=== PATIENT | female | born 1980 | race Caucasian/White ===

== ENCOUNTER 2021-10-26 13:48 | Outpatient (CLI) | payer OTHER, SELFPAY ==
--- NOTE | 2021-10-26 14:09 | ECG_ITS ---
Measurements Intervals [place] Rate: 61 P: 40 NC: 141 QRS: 9 QRSD: 98 T: 30 QT: 430 QTc: 434 Interpretive Statements SINUS RHYTHM DELAYED PRECORDIAL R/S TRANSITION BORDERLINE ECG NO PREVIOUS ECG AVAILABLE FOR COMPARISON Electronically Signed On 10-26-2021 14:40:29 CDT by Maximo Moss D.O.
== END 2021-10-26 13:49 | disposition home or self-care (01) ==
LOC: ANHSURGERY 13:59
PROVIDERS: PCP Emergency Medicine; Visit Provider Obstetrics & Gynecology
DX: N92.0 Excessive and frequent menstruation with regular cycle (principal); Z01.818 Encounter for other preprocedural examination; I10 Essential (primary) hypertension
CPT/HCPCS: 36415; 86850; 86900; 86901; 93005

== ENCOUNTER 2021-10-31 01:15 | Day surgery (SDC) | payer OTHER, SELFPAY ==
[2021-10-19 15:34] VITALS: BMI 39.6
--- NOTE | 2021-10-19 15:39 | SUR.PREOP ---
Report to the Outpatient Waiting Room, entrance under the green pavilion located off [facility], at time _0600 on date _10/31/21 . OR Time: 07 . - You and your visitor will be asked to self-screen and do not enter if you have any COVID symptoms. - Only one visitor and NO children visitors are allowed at this time. - The patient visitor is requested to leave or wait in car when not with patient due to restrictions. - A mask is required within the hospital. Patients may have clear liquids (water, carbonated beverages, clear teas, apple juice) until 3 hours prior to surgery with a maximum of 20 ounces. - No food from midnight until time of surgery - Infants may have breast milk until 4 hours before surgery, infant formula 6 hours prior to surgery. - Children will be allowed to drink immediately following surgery. If applicable, please bring a bottle or sippy cup to assist with drinking. Juice, water, soda, and popsicles are readily available. For infants on formula, please bring formula the day of surgery. Pacifiers are allowed. Take the following medications with a SIP of water the morning of surgery: _zoloft Medications to discontinue per physician ___vitamin d Date to take last dose__10/28/21 Please no make-up, nail spanish, hairspray, perfume, deodorant, or body powder the day of surgery. No jewelry (including any body piercings) or valuables the day of surgery, leave them at home. Please take a shower or bath the night before, or the morning of, surgery with an antibacterial soap. Wear comfortable, loose fitting clothing. Children are encouraged to wear pajamas. - Jewelry must be removed prior to entering the operating room. Rings and piercings that are not removed may be cut off. - The hospital will not accept responsibility for valuables. - Please leave all valuables, including medications, at home the day of surgery. If you are going home after surgery, a licensed box truck driver must drive you home. - NO public transportation without another adult. - We recommend that an adult stay with you for 24 hours following discharge. - We also recommend that you do not drive, make important decision, drink alcoholic beverages, or take any drugs that were not prescribed by your health care provider for at least 24 hours after your discharge time. For Pediatric surgeries, we recommend two adults accompany the child home (only one inside the building at this time). Follow any additional instructions given to you from your surgeon. If you or anyone in your household have experienced Covid symptoms in the past week, please notify your surgeon or the nurse liaison at the phone number below for possible testing. Telephone instructions given to _neptali butt_and asked if any additional questions and then verbalized understanding. Patient advised to call surgeon office or pre surgery nurse liaison [phone] if any additional questions.
[2021-10-31] VITALS (12 sets, daily range): BP systolic 107–166; BP diastolic 57–92; PULSE 44–86; RESP 10–19; TEMP 36.2–37.2; O2SAT 98–100
[2021-10-31] MEDS: ACETAMINOPHEN 500 MG TABLET 1000 MG PO (06:07)
--- NOTE | 2021-10-31 06:40 | P.PNAN_ITS ---
Anes - Initial Pre Proc Eval Procedure: Operation Date: 10/31/21 07:30 Proposed Procedures p Total Laparoscopic Hysterectomy with Bilateral Salpingectomy - Vandana Sam MD Date/Time: 10/31/21 06:40 Surgeon: Vandana Sam MD Pre Op Diagnosis: Menorrhagia, Dysmenorhea,Pelvic Pain Patient Data Age: 40 Gender: F Height: 1.68 m Weight: 111.36 kg Allergies Allergy/AdvReac Type Severity Reaction Status Date / Time tramadol Allergy Mild Rash Verified 10/31/21 06:03 Home Medications Medication Instructions Recorded Confirmed Type albuterol sulfate 90 mcg/actuation 90 mcg inhalation PRN 10/19/21 10/19/21 History aerosol inhaler cholecalciferol (vitamin D3) 50 50 mcg PO DAILY 10/19/21 10/31/21 History mcg (2,000 unit) capsule (Vitamin D3) losartan 25 mg tablet 25 mg PO DAILY 10/19/21 10/31/21 History omeprazole 20 mg tablet,delayed 20 mg PO DAILY 10/19/21 10/31/21 History release sertraline 50 mg tablet 50 mg PO DAILY 10/19/21 10/31/21 History simvastatin 20 mg tablet 20 mg PO DAILY 10/19/21 10/31/21 History Patient hx anesthesia problems: none Family hx anesthesia problems: none Results Review: All pre-operative results and documents have been reviewed as part of the pre- operative evaluation. [facility] Past Medical History Medical History (Updated 10/31/21 @ 06:40 by Papo Almaguer MD) Anxiety Depression HTN (hypertension) Obesity Surgical History Surgical History (Updated 10/31/21 @ 06:40 by Papo Almaguer MD) History of tubal ligation Social History Social History Smoking status: Former smoker Tobacco type: e-cigarettes/vaping Smoking end date: 02/24/21 Additional smoking assessment comments: 7 years smoking,currently vaping Living arrangements: with family Spiritual care concerns: No Anes - Eval Final PreProcedure Day of Procedure 10/31/21 06:40 Patient weight: obese Heart: regular rate and rhythm Lungs: clear to auscultation Airway: Mallampati scale class II Neurological: alert and oriented Last oral intake: >/= 8 hours ASA classification: III Emergent: no Anesthetic plan: proceed Anesthesia type and monitoring: general ETT and standard monitoring Results Review: All pre-operative results and documents have been reviewed as part of the pre- operative evaluation. Informed Consent: The patient's anesthetic plan and its attendant risks and benefits were discussed with the patient/family/POA. Questions were solicited and answers provided to the satisfaction of the patient/family/POA.
[2021-10-31] MEDS: LACTATED RINGERS 1,000 ML 30 ML IV CONT ×2 (06:53→09:29)
[2021-10-31] MEDS: KETOROLAC 15 MG/ML VIAL (*BKC) IV PUSH (06:53)
--- NOTE | 2021-10-31 07:16 | WPDHPUPDATE1 ---
History and Physical Update Update Date/Time: 10/31/21 07:16 History and Physical has been reviewed, including an updated exam of the patient. There are NO changes in the patient's condition. Risks, benefits, and alternatives have been discussed and questions answered. Patient agrees to proceed with procedure.
[2021-10-31] MEDS: ceFAZolin 2 GM/D5W 50 ML 2 GM/50 ML BAG IVPB (07:26)
[2021-10-31] MEDS: ceFAZolin SODIUM 1 GM VIAL IRRIGATION (08:22)
[2021-10-31] MEDS: ONDANSETRON INJ 4 MG/2 ML VIAL IV PUSH (09:44)
[2021-10-31] MEDS: SCOPOLAMINE 1.5 MG PATCH TRANSDERM (09:44)
--- NOTE | 2021-10-31 09:44 | W.PM.PROC2 ---
Procedure Note - Detailed Date of Procedure 10/31/21 Pre-op Diagnosis Menorrhagia, Dysmenorhea,Pelvic Pain Post-op Diagnosis Same Procedure Performed Total laparoscopic hysterectomy and bilateral salpingo-oophorectomy. Surgeon Vandana Sam MD Anesthesia General Indications Pelvic pain, menorrhagia Findings Mildly enlarged vascular uterus, endometrial implant, high in the left pelvic sidewall lateral to the infundibulopelvic ligament. Normal-appearing numerous. Description of Procedure This patient was taken to the operating room. She was prepped and draped in the dorsal lithotomy position after induction of general anesthesia. The uterine manipulator and Kaylynn cup were placed. This was done with a speculum and tenaculum. The speculum was placed. The cervix was grasped with a tenaculum. The stay sutures were placed at 3 and 9:00 a.m.. The stay sutures of 0 Vicryl were brought through the appropriately sized Kaylynn cup. The tip of the SHANNAN manipulator was placed in the intrauterine cavity. The cup was slid into place around the cervix and into the fornices. It was locked into place. The sutures were then wrapped around the handle and tied under tension. A 5 mm skin incision was made in the left upper quadrant the abdomen. A 5 mm trocar was inserted into the intrauterine cavity under direct visualization of the scope. Pneumoperitoneum was achieved. A left lower quadrant 11 mm incision was made with scalpel. An 11 mm trocar was inserted into the anterior abdominal cavity under direct visualization the scope. A 5 mm infraumbilical incision was made with a scalpel and a 5 mm trocar was inserted the intra-abdominal cavity under direct visualization of the scope. Bilateral ureteral lysis was performed. This was done from the pelvic brim down to the uterine artery. This was done with careful dissection using sharp and blunt dissection. The infundibulopelvic ligaments were isolated after identification of the ureters bilaterally. These infundibulopelvic ligaments were cauterized and transected with LigaSure cautery. The para ovarian tissue was cauterized and transected with LigaSure cautery bilaterally. Moving around the ovary into the broad ligament the tissue was cauterized transected with LigaSure cautery. The round ligaments were cauterized transected with LigaSure cautery this was all done in a bilateral fashion. In a stepwise fashion along the lateral aspects of the uterus the round ligament and broad ligaments were cauterized transected down to the level of the uterine arteries. A bladder flap was created in the bladder was moved distally to the end of the cervix and over the Kaylynn cup. The bilateral uterine arteries were cauterized and transected. Colpotomy was then performed. In a circumferential fashion the vagina was transected using unipolar cautery. The incision was made down on the Kaylynn cup. The uterus, cervix, fallopian tubes and ovaries were taken out through the vagina. A pneumo occluder was placed in the vagina. The vaginal cuff was closed with a 0 V lock suture in a running fashion. The pelvis was irrigated with copious amounts antibiotic irrigation. The ureters were again examined and found to be intact and flowing freely under the uterine arteries into the bladder. The bladder was intact. It was examined directly. The vagina was irrigated with Betadine solution after removal of the Pneumo occluder.The skin incisions were closed with 4 O monocril and covered with dermabond The patient was taken to recovery room. She was stable condition. Sponge lap and needle counts were correct x2. Estimated Blood Loss -150.0 Urine Output -50.0 Drains Yes Packing No Pathology Yes Complications No immediate complications Condition Stable Disposition Floor
[2021-10-31] MEDS: fentaNYL CITRATE INJ (*CRX) 100 MCG/2 ML VIAL 25 MCG IV PUSH ×6 (09:55→10:35)
[2021-10-31] MEDS: KETOROLAC 30 MG/ML VIAL (*BKC) IV PUSH (11:20)
[2021-10-31] MEDS: DEXTROSE 5%/0.45% SOD CHL 1,000 ML 125 ML IV CONT (11:29)
[2021-10-31] MEDS: HYDROcodone/acetaminophen (*CRX) 10-325 MG TABLET 1 TAB PO ×3 (12:58→23:06)
[2021-10-31] MEDS: SIMETHICONE 80 MG TAB.CHEW (12:59)
[2021-10-31] MEDS: PANTOPRAZOLE 40 MG TABLET PO (16:01)
[2021-10-31] MEDS: ESTRADIOL 7 DAY 0.1 MG PATCH TRANSDERM (16:03)
[2021-10-31] MEDS: HYDROcodone/acetaminophen (*CRX) 5-325 MG TABLET 1 TAB PO (19:33)
[2021-10-31] MEDS: SIMETHICONE 80 MG TAB.CHEW PO (23:06)
[2021-11-01] MEDS: HYDROcodone/acetaminophen (*CRX) 10-325 MG TABLET 1 TAB PO ×2 (04:12→07:18)
[2021-11-01] MEDS: SIMETHICONE 80 MG TAB.CHEW PO ×2 (04:12→07:18)
[2021-11-01 04:15] VITALS: BP 132/71; PULSE 58; RESP 18; TEMP 36.8; O2SAT 100
[2021-11-01] MEDS: IBUPROFEN 600 MG TABLET PO (05:36)
[2021-11-01 08:05] VITALS: BP 118/65; PULSE 56; RESP 16; TEMP 36.8; O2SAT 100
--- NOTE | 2021-11-01 08:33 | PM.OBPNVD ---
OB - PN: Subj Subjective Date/time seen: 11/01/21 08:33 OB - PN A/P Time Spent With Patient Time: Total time spent is greater than 50% in coordination of care (as documented) at patient's floor/unit and/or counseling patient: Exam Const: General: healthy appearing, comfortable and no acute distress Resp: Auscultation: clear to auscultation bilaterally, no rales, no rhonchi and no wheezes Cardio: Rate: regular rate Heart sounds: no click, no murmurs and no rubs GI: Inspection: non-distended Auscultation: normal bowel sounds Extrem: General: normal to inspection, no pedal edema and no calf tenderness
[2021-11-01] MEDS: SERTRALINE HCL 50 MG TABLET PO (09:07)
[2021-11-01] MEDS: LOSARTAN POTASSIUM 25 MG TABLET PO (09:07)
[2021-11-01] MEDS: HYDROcodone/acetaminophen (*CRX) 5-325 MG TABLET 1 TAB PO (10:21)
--- NOTE | 2021-11-01 10:39 | WPDANESPN ---
Anes - Prog Note Post-Op Date/Time: 11/01/21 10:39 Cardiovascular status: normal Respiratory status: normal Airway patency: baseline Mental status: baseline Post-Op hydration status: normal Vital Signs: Last Vital Signs Temp 36.8 C 11/01/21 08:05 Pulse 56 L 11/01/21 08:05 Resp 16 11/01/21 08:05 BP 118/65 11/01/21 08:05 Pulse Ox 100 11/01/21 08:05 O2 Del Method Room Air 11/01/21 07:15 O2 Flow Rate 10 10/31/21 09:59 Pain Score (VAS): 2 Patient Feedback: Patient satisfied with anesthetic care.
== END 2021-11-01 10:25 | disposition home or self-care (01) ==
LOC: ANHSURGERY 07:04 → ANHOB2 11:02
PROVIDERS: PCP Emergency Medicine; Visit Provider Obstetrics & Gynecology
PROC: 0UT9FZZ Resection of Uterus, Via Natural or Artificial Opening With Percutaneous Endoscopic Assistance (ICD-10-PCS; CPT 58571; principal; 2021-10-31 07:30)
DX: N92.0 Excessive and frequent menstruation with regular cycle (principal); N94.6 Dysmenorrhea, unspecified; R10.2 Pelvic and perineal pain; N80.3 Endometriosis of pelvic peritoneum; N83.8 Other noninflammatory disorders of ovary, fallopian tube and broad ligament; I10 Essential (primary) hypertension; F41.9 Anxiety disorder, unspecified; F32.A Depression, unspecified; Z79.51 Long term (current) use of inhaled steroids; E66.01 Morbid (severe) obesity due to excess calories; Z68.41 Body mass index [BMI] 40.0-44.9, adult; F17.290 Nicotine dependence, other tobacco product, uncomplicated
CPT/HCPCS: 58571; 58662; 36415; 86850; 86900; 86901; 88305; 88307; 93005; 99199; A9270; J0330; J0690; J1100; J1885; J2250; J2405; J2704; J2710; J3010; J7030; J7120

== ENCOUNTER 2023-04-30 08:31 | Emergency (ER) | payer OTHER, SELFPAY ==
[2023-04-30] VITALS (18 sets, daily range): BP systolic 108–152; BP diastolic 67–99; PULSE 56–74; RESP 12–22; TEMP 36.6; O2SAT 90–100
--- NOTE | ~2023-04-30 | XR_ITS ---
EXAMINATION: XR chest 2V DATE: 04/30/2023 09:06 INDICATION: Intermittent chest pain and pressure. TECHNIQUE: PA and lateral views of the chest were obtained. COMPARISON: None FINDINGS: The lungs are clear with no focal airspace opacities, pulmonary edema, pleural effusion or pneumothor ax. The cardiomediastinal silhouette is normal. Mild thoracic spondylosis. IMPRESSION: 1. No acute cardiopulmonary disease. Reviewed, dictated and finalized at location A. TRICAL SOLDERER
--- NOTE | ~2023-04-30 | US_ITS ---
EXAMINATION: US venous doppler [facility] DATE: 04/30/2023 11:17 INDICATION: Lower limb pain and swelling TECHNIQUE: Grayscale ultrasound images without and with compression and Doppler ultrasound images of the bilateral lower extremity veins were obtained. COMPARISON: None. FINDINGS: The visualized portions of right common femoral vein, profunda (deep) femoral vein, femoral vein, pop liteal vein, posterior tibial veins, peroneal veins, gastrocnemius vein and greater saphenous vein ou tflow are patent. The visualized portions of left common femoral vein, profunda femoral vein, femoral vein, popliteal v ein, posterior tibial veins, peroneal veins, gastrocnemius vein and greater saphenous vein outflow ar e patent. IMPRESSION: 1. No deep venous thrombosis in either lower limb. Reviewed, dictated and finalized at location A. E ROOM WORKER
[2023-04-30 08:52] LABS: Basophils Percent Auto 0.5 % (0.2-1.2); Eosinophils Absolute Auto 0.2 K/mm3 (0-0.3); Hematocrit 42.8 % (37.0-47.0); Hemoglobin 13.3 g/dL (12.0-15.0); Immature Granulocyte Absolute 0.02 K/mm3 (0.00-0.031); Immature Granulocyte Percent A 0.4 % (0-0.5); Lymphocytes Percent Auto 36.4 % (18.3-44.2); Mean Corpuscular HGB Conc 31.1 g/dl (32-36); Mean Corpuscular Hemoglobin 26.2 pg (26-34); Mean Corpuscular Volume 84.3 fl (80-100); Mean Platelet Volume 9.5 fl (7.4-10.4); Monocytes Absolute Auto 0.3 K/mm3 (0.1-0.6); Monocytes Percent Auto 5.5 % (2.6-8.5); Neutrophils Absolute Auto 2.9 K/mm3 (1.3-6.7); Neutrophils Percent Auto 53.2 % (45.5-73.1); Platelet Count Result 298 k/mm3 (150-375); Red Blood Count 5.08 M/mm3 (4.2-5.4); Red Cell Distribution Width 13.9 % (11.5-14.5); White Blood Count 5.5 K/mm3 (4.5-10.0)
[2023-04-30 09:03] LABS: INR 0.9; Prothrombin Time 12.6 Seconds (11.1-14.7)
[2023-04-30 09:04] LABS: Partial Thromboplastin Time 25.3 SECONDS (22.3-36.8)
[2023-04-30 09:17] LABS: Alanine Aminotransferase 29 U/L (6-35); Albumin Level 3.9 g/dL (3.5-5.1); Alkaline Phosphatase 63 U/L (38-126); Anion Gap 7 mmol/L (8-16); Aspartate Amino Transferase 22 U/L (14-36); Bilirubin,Total 0.3 mg/dL (0.2-1.3); Blood Urea Nitrogen 17 mg/dL (7-17); Calcium 8.9 mg/dL (8.4-10.2); Carbon Dioxide 26 mmol/L (22-30); Chloride 106 mmol/L (98-107); Estimated CRCL calculation 120 ml/min; Estimated Glomerular Filt Rate > 60; Glucose 132 mg/dL (65-110); Lipase 78 U/L (23-300); Sodium 139 mmol/L (137-145)
[2023-04-30 09:23] LABS: Troponin I < 0.012 ng/mL (0.000-0.034)
[2023-04-30] MEDS: ASPIRIN 81 MG CHEWABLE TABLET 324 MG PO (09:23)
[2023-04-30 09:24] LABS: Potassium 3.6 mmol/L (3.4-5.0)
[2023-04-30 09:31] LABS: D Dimer < 0.27 ug/mL (<0.48)
--- NOTE | 2023-04-30 09:37 | ED.CHESTPAIN ---
HPI - Chest Pain General Chief Complaint: Chest Pain Stated Complaint: chest pain, feet swelling Time Seen by Provider: 04/30/23 09:09 Source: patient Mode of arrival: ambulatory Limitations: no limitations History of Present Illness HPI narrative: This is a 42-year-old female that presents to the emergency department for lower extremity edema. Worsening over the last month. Reports since yesterday she has had some intermittent chest discomfort. She describes this as butterflies in her chest. Reports some associated shortness of breath. Reports some cough and congestion. Denies fevers. Related Data Home Medications Medication Instructions Recorded Confirmed albuterol sulfate 90 mcg/actuation 90 mcg inhalation PRN 10/19/21 10/19/21 aerosol inhaler cholecalciferol (vitamin D3) 50 50 mcg PO DAILY 10/19/21 10/31/21 mcg (2,000 unit) capsule (Vitamin D3) losartan 25 mg tablet 25 mg PO DAILY 10/19/21 10/31/21 sertraline 50 mg tablet 50 mg PO DAILY 10/19/21 10/31/21 simvastatin 20 mg tablet 20 mg PO DAILY 10/19/21 10/31/21 alprazolam 1 mg tablet (Xanax) 1 mg PO BID PRN Anxiety 04/30/23 Allergies Allergy/AdvReac Type Severity Reaction Status Date / Time tramadol Allergy Mild Rash Verified 04/30/23 08:45 Review of Systems Review of Systems: CONSTITUTIONAL: Denies fever, ENT: Reports congestion CARDIOVASCULAR: Reports chest pain, and edema. RESPIRATORY: Reports cough and dyspnea. All systems reviewed & are unremarkable except as noted in HPI and below PMFSH Past Medical History Medical History (Updated 04/30/23 @ 12:15 by Nyla Lee PA-C) Anxiety Depression HTN (hypertension) Obesity Surgical History Surgical History (Updated 10/31/21 @ 06:40 by Papo Almaguer MD) History of tubal ligation Social History Social History Smoking status: Former smoker Tobacco type: e-cigarettes/vaping Smoking end date: 02/24/21 Additional smoking assessment comments: 7 years smoking,currently vaping Living arrangements: with family Spiritual care concerns: No Exam Narrative: GENERAL: Well-appearing, well-nourished, and in no acute distress. HEAD: Normocephalic, atraumatic. EYES: EOMI. ENT: Nares clear, no rhinorrhea or epistaxis. Mucous membranes moist. Oropharynx without tonsillar hypertrophy exudate or other lesions. NECK: Supple. No adenopathy or masses. No JVD CHEST: Clear to auscultation. No respiratory distress. No wheezes rales or rhonchi HEART: Regular rate and rhythm. No murmur heard. Normal peripheral pulses. EXTREMITIES: Normal range of motion. 1+ pitting edema to the bilateral lower extremities SKIN: Warm, dry, no rash. NEURO: No focal deficits. Alert and oriented x3. PSYCH: Normal mood and affect Course Course Emergency Course: Patient updated on her workup and agrees with plan of care Vital Signs Vital signs: Vital Signs Temperature 97.8 F 04/30/23 08:38 Pulse Rate 62 04/30/23 08:38 Respiratory Rate 16 04/30/23 08:38 Blood Pressure 152/71 H 04/30/23 08:38 Pulse Oximetry 100 04/30/23 08:38 Oxygen Delivery Room Air 04/30/23 08:38 Temperature 97.8 F 04/30/23 08:38 Pulse Rate 58 L 04/30/23 11:31 Respiratory Rate 18 04/30/23 11:31 Blood Pressure 108/87 04/30/23 11:31 Pulse Oximetry 95 04/30/23 11:31 Oxygen Delivery Room Air 04/30/23 08:38 MDM - Chest Pain MDM Narrative Medical decision making narrative: Patient presents to the emergency department for worsening lower extremity edema. Also reporting a feeling of chest pain described as butterflies in her chest. She is afebrile and nontoxic appearing. Her vitals are stable. CBC metabolic panel without concerning finding. EKG without acute ST changes and her baseline and 3 hour troponin are negative. D-dimer is not elevated. BNP is not elevated. Chest x-ray without acute cardiopulmonary abnormality. Venous
[2023-04-30 10:04] LABS: NT Pro B Type Natriuretic Pept 60 pg/mL (19.9-100)
[2023-04-30 10:32] LABS: Influenza A QL RT-PCR Negative (Negative); Influenza B QL RT-PCR Negative (Negative); RSV RNA, RT-PCR Negative (Negative); SARS-CoV-2 RNA PCR Negative (Negative)
--- NOTE | 2023-04-30 11:30 | ECG_ITS ---
Measurements Intervals [place] Rate: 58 P: 19 GA: 157 QRS: 7 QRSD: 101 T: 47 QT: 435 QTc: 429 Interpretive Statements SINUS BRADYCARDIA NONSPECIFIC T-WAVE ABNORMALITY- ANTERIOR LEADS BASELINE ARTIFACT- I, III, AVR, AVL, AVF, V1-V2 BORDERLINE ECG NO PREVIOUS ECG AVAILABLE FOR COMPARISON Electronically Signed On 05-01-2023 13:12:40 TOWER LOADER OPERATOR by Maximo Moss D.O.
[2023-04-30 11:50] LABS: Troponin I < 0.012 ng/mL (0.000-0.034)
== END 2023-04-30 12:30 | disposition home or self-care (01) ==
PROVIDERS: Student in an Organized Health Care Education/Training Program; Emergency Provider Physician Assistant; PCP Emergency Medicine
DX: R07.9 Chest pain, unspecified (principal); R60.9 Edema, unspecified; Z20.822 Contact with and (suspected) exposure to COVID-19; F41.9 Anxiety disorder, unspecified; F32.A Depression, unspecified; I10 Essential (primary) hypertension
CPT/HCPCS: 36415; 71046; 80053; 83690; 83880; 84484; 85025; 85380; 85610; 85730; 87637; 93005; 93970; 99284; A9270

== ENCOUNTER 2023-12-03 10:10 | Emergency (ER) | payer OTHER, SELFPAY ==
--- NOTE | ~2023-12-03 | XR_ITS ---
Left Shoulder Technique: AP and scapular Y views were obtained. Clinical History: Pain Findings: No fracture or dislocation is seen. Osseous alignment is anatomic. The glenohumeral and acr omioclavicular joint spaces are preserved. Soft tissues are unremarkable. Impression: Unremarkable left shoulder radiographs. Reviewed, dictated and finalized at [facility]. Impression: Unremarkable left shoulder radiographs.
[2023-12-03 10:18] VITALS: BP 156/86; PULSE 70; RESP 16; TEMP 36.9; O2SAT 98
--- NOTE | 2023-12-03 13:28 | ED.GENADULT ---
HPI - General Adult General Chief complaint: Extremity Problem,Nontraumatic Stated complaint: L shoulder pain Time Seen by Provider: 12/03/23 12:44 History of Present Illness HPI narrative: Patient is a 42-year-old female who presents ER with pain to left shoulder. Ongoing over last 3 days but significantly worsened today. Has difficulty turning her arm internally to reach the midline of her back and also has pain along the medial aspect of the scapula when bending head down and lifting her arm. Reports she did catch 1 of her children who Was following the other day. Unsure if this causes injury but she had been sore since then. No numbness or tingling. No chest pain or difficulty breathing. Occasional for anti-inflammatories and home care. Related Data Home Medications Medication Instructions Recorded Confirmed albuterol sulfate 90 mcg/actuation 90 mcg inhalation PRN 10/19/21 10/19/21 aerosol inhaler cholecalciferol (vitamin D3) 50 50 mcg PO DAILY 10/19/21 10/31/21 mcg (2,000 unit) capsule (Vitamin D3) losartan 25 mg tablet 25 mg PO DAILY 10/19/21 10/31/21 sertraline 50 mg tablet 50 mg PO DAILY 10/19/21 10/31/21 simvastatin 20 mg tablet 20 mg PO DAILY 10/19/21 10/31/21 alprazolam 1 mg tablet (Xanax) 1 mg PO BID PRN Anxiety 04/30/23 Allergies Allergy/AdvReac Type Severity Reaction Status Date / Time tramadol Allergy Mild Rash Verified 12/03/23 10:11 Review of Systems Constitutional: Constitutional: Reports no additional constitutional complaints Cardiovascular: Cardiovascular: Reports no additional cardiovascular complaints Respiratory: Respiratory: Reports no additional respiratory complaints Musculoskeletal: Musculoskeletal: Reports back pain, Reports arthralgias, Denies joint swelling and Reports muscle cramps PMFSH Past Medical History Medical History (Updated 12/03/23 @ 13:33 by Hayden Hayward MD) Anxiety Depression HTN (hypertension) Obesity Surgical History Surgical History (Updated 10/31/21 @ 06:40 by Papo Almaguer MD) History of tubal ligation Social History Social History Smoking status: Former smoker Tobacco type: e-cigarettes/vaping Smoking end date: 02/24/21 Additional smoking assessment comments: 7 years smoking,currently vaping Living arrangements: with family Spiritual care concerns: No Exam Narrative: GENERAL: Well-appearing, well-nourished, and in no acute distress. HEAD: Normocephalic, atraumatic. ENT: Mucous membranes moist. CHEST: Clear to auscultation. No respiratory distress. No tenderness over the clavicle. HEART: Regular rate and rhythm. Normal peripheral pulses. Back: No midline tenderness at T/L-spine. Significant paraspinal muscle tenderness between the scapula and T-spine reproducing patient's pain. No trapezius tenderness. EXTREMITIES: Normal range of motion. No edema. Normal internal external rotation the shoulder with exception of reaching back to midline of the back which cannot be performed. Abduction At the shoulderpossible. NEURO: Alert and oriented x3. PSYCH: Normal mood and affect. Course Course Emergency Course: declined Toradol. Will give naproxen. Discharge with anti-inflammatories muscle relaxers. Discussed imaging results and muscle strain diagnosis. Vital Signs Vital signs: Vital Signs Temperature 98.5 F 12/03/23 10:18 Pulse Rate 70 12/03/23 10:18 Respiratory Rate 16 12/03/23 10:18 Blood Pressure 156/86 H 12/03/23 10:18 Pulse Oximetry 98 12/03/23 10:18 Oxygen Delivery Room Air 12/03/23 10:18 Temperature 98.5 F 12/03/23 10:18 Pulse Rate 70 12/03/23 10:18 Respiratory Rate 16 12/03/23 10:18 Blood Pressure 156/86 H 12/03/23 10:18 Pulse Oximetry 98 12/03/23 10:18 Oxygen Delivery Room Air 12/03/23 10:18 Medical Decision Making Vital Signs Vital Signs: Vital Signs Temperature 98.5 F 10/
[2023-12-03] MEDS: NAPROXEN 375 MG TABLET PO (13:36)
== END 2023-12-03 13:48 | disposition home or self-care (01) ==
LOC: ANHED 13:42
PROVIDERS: Emergency Provider Emergency Medicine; PCP Emergency Medicine
DX: S29.012A Strain of muscle and tendon of back wall of thorax, initial encounter (principal); I10 Essential (primary) hypertension; E66.9 Obesity, unspecified; Z68.42 Body mass index [BMI] 45.0-49.9, adult; F41.9 Anxiety disorder, unspecified; F32.A Depression, unspecified; F17.290 Nicotine dependence, other tobacco product, uncomplicated; Z79.899 Other long term (current) drug therapy; X58.XXXA Exposure to other specified factors, initial encounter
CPT/HCPCS: 73030; 99283; A9270

== ENCOUNTER 2024-03-13 21:58 | Emergency (ER) | payer OTHER, SELFPAY ==
--- NOTE | ~2024-03-13 | XR_ITS ---
EXAMINATION: XR chest 2V Exam Date/Time: 03/13/2024 22:32 BOTTLING ROOM WORKER HISTORY: SOB, COUGH X 1 DAY Comparison: 04/30/2023. RESULT: Lines, tubes, and devices: None. Lungs and pleura: Segmental right upper lobe airspace disease. Cardiomediastinal silhouette: Stable. Other: No acute osseous or upper abdominal finding. IMPRESSION: Segmental right upper lobe pneumonia. Reviewed, dictated and finalized at location K. LING ROOM WORKER
[2024-03-13 22:02] VITALS: BP 137/89; PULSE 77; RESP 22; TEMP 36.2; O2SAT 98
--- NOTE | 2024-03-13 22:15 | ECG_ITS ---
Test Date: 2024-03-13 22:19:29 Measurements Intervals [place] Rate: 69 P: 28 AL: 147 QRS: 12 QRSD: 123 T: 58 QT: 381 QTc: 408 Interpretive Statements SINUS RHYTHM POSSIBLE LATERAL MYOCARDIAL INFARCTION , PROBABLY OLD [30 ms Q WAVE IN I/aVL/V5/V6] No previous ECG available for comparison Electronically Signed On 03-14-2024 10:02:59 [employer] by Kofi Subramanian M.D.
[2024-03-13 22:31] LABS: Basophils Percent Auto 0.6 % (0.2-1.2); Eosinophils Absolute Auto 0.2 K/mm3 (0-0.3); Eosinophils Percent Auto 4.2 % (0-4.4); Hematocrit 41.4 % (37.0-47.0); Hemoglobin 12.9 g/dL (12.0-15.0); Immature Granulocyte Absolute 0.01 K/mm3 (0.00-0.031); Immature Granulocyte Percent A 0.2 % (0-0.5); Lymphocytes Absolute Auto 2.32 K/mm3 (0.9-3.2); Lymphocytes Percent Auto 42.6 % (18.3-44.2); Mean Corpuscular HGB Conc 31.2 g/dl (32-36); Mean Corpuscular Hemoglobin 25.4 pg (26-34); Mean Corpuscular Volume 81.7 fl (80-100); Mean Platelet Volume 9.5 fl (7.4-10.4); Monocytes Absolute Auto 0.5 K/mm3 (0.1-0.6); Monocytes Percent Auto 9.2 % (2.6-8.5); Neutrophils Absolute Auto 2.4 K/mm3 (1.3-6.7); Neutrophils Percent Auto 43.2 % (45.5-73.1); Platelet Count Result 294 k/mm3 (150-375); Red Blood Count 5.07 M/mm3 (4.2-5.4); Red Cell Distribution Width 14.8 % (11.5-14.5); White Blood Count 5.5 K/mm3 (4.5-10.0)
[2024-03-13 22:43] LABS: Alanine Aminotransferase 35 U/L (6-35); Albumin Level 3.7 g/dL (3.5-5.1); Alkaline Phosphatase 62 U/L (38-126); Anion Gap 7 mmol/L (4-12); Aspartate Amino Transferase 25 U/L (14-36); Bilirubin,Total 0.3 mg/dL (0.2-1.3); Blood Urea Nitrogen 15 mg/dL (7-17); Calcium 8.6 mg/dL (8.4-10.2); Carbon Dioxide 26 mmol/L (22-30); Chloride 108 mmol/L (98-107); Estimated CRCL calculation 107 ml/min; Estimated Glomerular Filt Rate > 60; Glucose 109 mg/dL (65-110); Potassium 3.9 mmol/L (3.4-5.0); Sodium 141 mmol/L (137-145)
[2024-03-13 23:09] LABS: Influenza A QL RT-PCR Negative (Negative); Influenza B QL RT-PCR Negative (Negative); RSV RNA, RT-PCR Negative (Negative); SARS-CoV-2 RNA PCR Negative (Negative)
[2024-03-13 23:46] VITALS: PULSE 75; O2SAT 100
[2024-03-13 23:47] VITALS: BP 133/96; PULSE 73; RESP 20; TEMP 36.8; O2SAT 100
[2024-03-13 23:48] VITALS: O2SAT 100
[2024-03-14] MEDS: guaiFENesin/DEXTROMETHORPHAN 10 ML UDC PO (00:03)
[2024-03-14] MEDS: KETOROLAC 15 MG/ML VIAL (*BKC) IV PUSH (00:03)
[2024-03-14] MEDS: dexAMETHasone SOD PHOS INJ 10 MG/ML 1 ML VIAL IV PUSH (00:04)
[2024-03-14] MEDS: IPRATROPIUM 0.5 MG/ALBUTEROL SULFATE 2.5 MG AMPUL.NEB 3 ML 12 ML INHALATION (00:09)
[2024-03-14 00:10] VITALS: PULSE 71; RESP 24
--- NOTE | 2024-03-14 00:46 | ED_ITS ---
HPI - General Adult General Chief complaint: Shortness of Breath/Dyspnea Stated complaint: SOB, cough Time Seen by Provider: 03/13/24 23:38 History of Present Illness HPI narrative: This is a 43-year-old female history of bronchitis presenting for URI symptoms. Starting yesterday she developed sinus pressure, ear fullness sore throat and chest tightness. Denies fevers chills chest pain abdominal pain nausea vomiting or diarrhea. He has a sick child at home with similar symptoms Related Data Home Medications ?Medication ?Instructions ?Recorded ?Confirmed ?Last Taken ?Type albuterol sulfate 90 mcg/actuation 90 mcg inhalation PRN 10/19/21 10/19/21 Unknown History aerosol inhaler cholecalciferol (vitamin D3) 50 50 mcg PO DAILY 10/19/21 10/31/21 Unknown History mcg (2,000 unit) capsule (Vitamin D3) losartan 25 mg tablet 25 mg PO DAILY 10/19/21 10/31/21 10/30/21 History sertraline 50 mg tablet 50 mg PO DAILY 10/19/21 10/31/21 10/30/21 History simvastatin 20 mg tablet 20 mg PO DAILY 10/19/21 10/31/21 10/29/21 History alprazolam 1 mg tablet (Xanax) 1 mg PO BID PRN Anxiety 04/30/23 Unknown History Allergies Allergy/AdvReac Type Severity Reaction Status Date / Time tramadol Allergy Mild Rash Verified 03/13/24 22:05 [facility] Past Medical History Medical History Anxiety Depression HTN (hypertension) Obesity Surgical History Surgical History History of tubal ligation Social History Social History Smoking status: Former smoker Tobacco type: e-cigarettes/vaping Smoking end date: 02/24/21 Additional smoking assessment comments: 7 years smoking,currently vaping Living arrangements: with family Spiritual care concerns: No Exam 2 Narrative: APPEARANCE: No apparent distress. Head: atraumatic. TM- Serous effusion bilaterally EYES: EOMI, NOSE: Atraumatic NECK: Trachea midline RESPIRATORY: No increased rate of breathing, scattered wheezes, no oxygen requirements CARDIOVASCULAR: RRR, no peripheral edema ABDOMINAL: Non-distended soft nontender MUSCULOSKELETAl: No obvious deformities NEURO: Alert. Moving 4/4 extremities SKIN:: Warm, dry. Normal color PSYCHIATRIC: Normal affect Course Vital Signs Vital signs: Vital Signs Temperature 97.2 F L 03/13/24 22:02 Pulse Rate 77 03/13/24 22:02 Respiratory Rate 22 H 03/13/24 22:02 Blood Pressure 137/89 03/13/24 22:02 Pulse Oximetry 98 03/13/24 22:02 Oxygen Delivery Room Air 03/13/24 22:02 Temperature 98.3 F 03/13/24 23:47 Pulse Rate 71 03/14/24 00:10 Respiratory Rate 24 H 03/14/24 00:10 Blood Pressure 133/96 H 03/13/24 23:47 Pulse Oximetry 100 03/13/24 23:48 Oxygen Delivery Room Air 03/13/24 23:48 Medical Decision Making MDM Narrative Medical decision making narrative: -Course: 43-year-old female presenting with URI symptoms. Viral swabs negative. Lab work within normal limits. Vital signs stable. Patient treated with breathing treatment for her wheezing and given dexamethasone. Patient will be discharged primary care follow-up -DDX includes but is not limited to: URI symptoms, bronchitis, pneumonia, COVID, flu -Interventions: Breathing treatment, dexamethasone, cough syrup, Toradol -Shared decision making / Disposition: Discharge -RX Flonase, Robitussin Vital Signs Vital Signs: Vital Signs Temperature 97.2 F L 03/13/24 22:02 Pulse Rate 77 03/13/24 22:02 Respiratory Rate 22 H 03/13/24 22:02 Blood Pressure 137/89 03/13/24 22:02 Pulse Oximetry 98 03/13/24 22:02 Oxygen Delivery Room Air 03/13/24 22:02 Temperature 98.3 F 03/13/24 23:47 Pulse Rate 71 03/14/24 00:10 Respiratory Rate 24 H 03/14/24 00:10 Blood Pressure 133/96 H 03/13/24 23:47 Pulse Oximetry 100 03/13/24 23:48 Oxygen Delivery Room Air 03/13/24 23:48 Lab Data 03/13/24 22:25 03/13/24 22:25 Labs: Lab Results 03/13/24 Range/Units 22:25 WBC 5.5 (4.5-10.0) K/mm3 RBC 5.07 (4.2-5.4) M/mm3 Hgb 12.9 (12.0-15.0) g/dL Hct 41.4 (37.0-47.0) % MCV 81.7 (80-100) fl MCH 25.4 L (26-34) pg MCHC 31.2 L (32-36) g/dl RDW 14.8 H (11.5-14.5) % Plt Count 294 (150-375) k/mm3 MPV 9.5 (7.4-10.4) fl Immature Gran % (Auto) 0.2 (0-0.5) % Neut % (Auto) 43.2 L (45.5-73.1) % Lymph % (Auto) 42.6 (18.3-44.2) % Dickinson % (Auto) 9.2 H (2.6-8.5) % Eos % (Auto) 4.2 (0-4.4) % Baso % (Auto) 0.6 (0.2-1.2) % Lymph # (Auto) 2.32 (0.9-3.2) K/mm3 Dickinson # (Auto) 0.5 (0.1-0.6) K/mm3 Eos # (Auto) 0.2 (0-0.3) K/mm3 Baso # (Auto) 0.0 (0.0-0.1) K/mm3 Abs Immat Gran (auto) 0.01 (0.00-0.031) K/mm3 Absolute Neuts (auto) 2.4 (1.3-6.7) K/mm3 Absolute Nucleated RBC 0.000 (0.0-0.012) K/mm3 Nucleated RBC % 0.0 (0.0-0.2) % Sodium 141 (137-145) mmol/L Potassium 3.9 (3.4-5.0) mmol/L Chloride 108 H (98-107) mmol/L Carbon Dioxide 26 (22-30) mmol/L Anion Gap 7 (4-12) mmol/L BUN 15 (7-17) mg/dL Creatinine 0.76 (0.7-1.0) mg/dL Estim Creat Clear Calc 107 ml/min Estimated GFR > 60 (59 - ) Glucose 109 (65-110) mg/dL Calcium 8.6 (8.4-10.2) mg/dL Total Bilirubin 0.3 (0.2-1.3) mg/dL AST 25 (14-36) U/L ALT 35 (6-35) U/L Alkaline Phosphatase 62 (38-126) U/L Total Protein 7.0 (6.3-8.2) g/dL Albumin 3.7 (3.5-5.1) g/dL Influenza A (RT-PCR) Negative (Negative) Influenza B (RT-PCR) Negative (Negative) RSV (RT-PCR) Negative (Negative) SARS-CoV-2 RNA (RT-PCR) Negative (Negative) Discharge Plan Discharge Clinical Impression: URI (upper respiratory infection), Bronchitis Patient Disposition: Home, Self-Care Condition: Stable Instructions: Antibiotic Form, Acute Bronchitis (ED) Additional Instructions: He was seen emergency department for cold symptoms. Please use the prescribed medicines for symptom control. Return to ED if you develop fevers, worsening shortness of breath or any new symptoms. Please use your inhaler every 4-6 hours as needed. Patient Language: Samoan Prescriptions: New Robitussin Cough-Chest Arnaldo DM 10-200 mg capsule 1 tab-cap PO ONCE PRN (Reason: cough) Qty: 14 0RF fluticasone propionate [Flonase Allergy Relief] 50 mcg/actuation spray,suspension 1 spray intranasal DAILY Qty: 16 0RF Rx Instructions: administer into each nostril albuterol sulfate [Ventolin HFA] 90 mcg/actuation HFA aerosol inhaler 1 inh inhalation QID Qty: 6.7 0RF No Action simvastatin 20 mg tablet 20 mg PO DAILY losartan 25 mg tablet 25 mg PO DAILY albuterol sulfate 90 mcg/actuation HFA aerosol inhaler 90 mcg inhalation PRN sertraline 50 mg tablet 50 mg PO DAILY cholecalciferol (vitamin D3) [Vitamin D3] 50 mcg (2,000 unit) Capsule 50 mcg PO DAILY alprazolam [Xanax] 1 mg Tablet 1 mg PO BID PRN (Reason: Anxiety) hydrochlorothiazide 12.5 mg capsule 12.5 mg PO DAILY 30 Days Qty: 30 0RF cyclobenzaprine 10 mg tablet 10 mg PO TID PRN (Reason: muscle spasm) Qty: 20 0RF naproxen 375 mg tablet 375 mg PO BID Qty: 14 0RF Follow-up/Referrals: Steven Crouch MD [Primary Care Provider] -
[2024-03-14 00:56] VITALS: O2SAT 100
--- OUTSIDE RECORDS SUMMARY | 2024-03-18 09:41 | XMS_ITS ---
Author Organization [facility] [place] [employer] [facility] Address [facility] [facility] [address] [place] [address] Care Team Providers Care Automobile Rental Agent Name Role Phone ArianaConner motaistin Unavailable [phone] Social History Sex Assigned At : Social History Observation Description Sex Assigned At Female Encounters Encounter Location Date Provider Diagnosis [facility] [place] [employer] [facility] [address] [facility] [address] [place] [address] 02/04/2024 Manisha Joyner Plan Of Treatment No Information Progress Notes * TOMMY FRYDOB: 2 (43 yo F)Acc No.[id number]:02/04/2024 Patient:?TOMMY FRY Provider:?Manisha Joyner :1980???Age:43 Y???Sex:Female D ate:02/04/2024 Address:[address] [place], [place] [id number] Subjective: * Chief Complaints: * ??? * Medical History:? * Surgical History:? * Hospitalization/Major Diagno stic Procedure:? * Medications:? Objective: * Vitals:? Assessment: Plan: * Treatment: * Procedure Codes:? * Billing Information: * Visit Code:? * Procedure Codes:? * HEALTH ASSISTANT Sign off status: Completed true * Provider:Bebe Joyner Date:? 024 Generated for Estuardo adorno/Kaity/eTелена on:?03/18/2024 09:41 AM HOME HEALTH ASSISTANT
--- OUTSIDE RECORDS SUMMARY | 2024-03-18 09:41 | XMS_ITS | CONTINUITY OF CARE DOCUMENT ---
Author Name alyssa shah Address Unknown Organization [facility] Address [address] [facility] [address] [place] [address] Phone [phone] Care Team Providers Care Global Recruiter Name Role Phone Maite CADET, Tanya Mcneil Unavailable MICK POLLACK MD Unavailable [phone] MICK POLLACK MD Unavailable [phone] PROBLEMS Condition Status Date Provider Notes Vitamin D deficiency active Deo Mcmahan IRON DEFICIENCY active Deo Alberto MD B12 deficiency active Deo Alberto MD Tobacco dependence, continuous active Dean Alberto MD Obesity active Deo Alberto MD Cermm-[id number] deficiency active Dean Alberto MD Hyperlipidemia;with high crp active Deo Alberto MD Exposure to SARS-associated coronavirus;neg igg and swb active Deo Alberto MD Screening active Deo Alberto MD Bradycardia;nml tsh active Deo Alberto MD Chest pain, atypical active Deo Mcmahan Leg edema, bilateral active Tanya liu MD Cardiology examination active Tanya renae MD ENCOUNTERS Date Type Provider Location Encounter Diag nosis - In-person encounter Office Visit Tanya Arora MD [facility] Cardiology examination - In-person encounter Office Visit Tanya Arora MD [facility] Leg edema, bilateral - In-person encounter Office Visit Deo Alberto MD [facility] Exposure to SARS-associated coronavirus;neg igg and swb - In-person encounter Office Visit Deo Alberto MD [facility] Tobacco dependence, continuousObesityAlp [id number] deficiencyHyperlipid emia;with high crpExposure to SARS-associated coronavirus;neg igg and swbScreeningBradycar jillian;nml tshChest pain, atypical VITAL SIGNS Date Observation Value Provider blood pressure, diastolic 84 mm[Hg] Li [facility] blood pressure, systolic 124 mm[Hg] Alison [facility] Body Mass Index (Ratio) 47.29 kg/m2 Rush Arora MD blood pressure, cuff size large [facility], [facility] 84 mm[Hg] [facility] systolic 124 mm[Hg] Tab [facility] pulse rate 92 /min Eugenia Bucyrus oxygen saturation, oximetry 97 % Eugenia Bucyrus weight E&M 293 [lb_av] Eugenia Bucyrus respiratory rate E&M 12 /min Eugenia Bucyrus height E&M 66 [in_i] [facility] Body Mass Index (Ratio) 46.64 kg/m2 Paul gee [place] blood pressure, cuff size large Ke rri Gruenenfeld blood pressure, diastolic 72 mm[Hg] Ke rri Gruenenfelder blood pressure, systolic 112 mm[Hg] Ker ri Gruenenfeldlevy oxygen saturation, oximetry 97 % Jennyfer Roger respiratory rate E&M 12 /min Jennyfer G ruenenfelder pulse rate 80 /min Jennyfer Gramiranehali lder weight E&M 289 [lb_av] Jennyfer Stoner [facility] height E&M 66 [in_i] Jennyfer Stoner [facility] Body Mass Index (Ratio) 38.73 kg/m2 Mac Alberto MD blood pressure, diastolic 87 mm[Hg] Cy nubia Aguayo blood pressure, systolic 137 mm[Hg] Leanna feli Aguayo blood pressure, cuff size regular Cy nubia Augayo pulse rate 72 /min Nancyfeli Iglesias l respiratory rate E&M 16 /min Nancy Aguayo oxygen saturation, oximetry 97 % Nancy Aguayo weight E&M 240 [lb_av] Nancy Jarekbel l height E&M 66 [in_i] Nancy Campbel l weight E&M 253 [lb_av] Janet [place] Body Mass Index (Ratio) 40.83 kg/m2 Mac Alberto MD blood pressure, resting No Tons hall Rivero respiratory rate E&M 16 /min Tonsha Rivero pulse rate 60 /min Tonsha Rivero oxygen saturation, oximetry 98 % Tonsha Rivero blood pressure, diastolic 83 mm[Hg] To nsha Rivero blood pressure, systolic 134 mm[Hg] Ton sha Rivero weight E&M 253 [lb_av] Tonsha Rivero height E&M 66 [in_i] Tonsha Rivero ALLERGIES Allergy Name Onset Date Reaction Criticality Status TRAMADOL HCL Low Criticality active RESULTS Date Observation Value Provider Reference Range Interpretation Location 3 c-reactive protein, quantitative, serum 4.88 mg/L [facility] 0.00-3.00 High 3 troponin I <0.01 ng/mL [facility] 0.00-0.04 3 ferritin, serum 37 ng/mL [facility] 15-150 2020/07/2 3 B-12, serum 351 pg/mL [facility] 232-1245 3 pro brain natriuretic peptide 109 pg/mL [facility] 0-130 3 iron saturation percent, serum 12 % [facility] 15-55 Low 3 iron, serum 40 ug/dL [facility] 27-159 3 iron binding capacity, unsaturated 299 ug/dL [facility] 164-773 1701/07/2 3 iron binding capacity, total 339 ug/dL [facility] 961-120 3647/07/2 3 free thyroxine index 2.2 [facility] 1.2-4.9 3 triiodothyronine resin uptake 27 % [facility] 24-39 3 thyroxine, serum, total 8.0 ug/dL [facility] 4.5-12.0 3 thyroid stimulating hormone, serum 2.180 u[IU]/mL [facility] 0.450-4.500 3 lipoprotein, beta, serum, point, quantitative, calculated 131 mg/dL [facility] 0-99 High 3 very low density lipoproteins 28 mg/dL [facility] 5-40 3 HDL cholesterol, serum 34 mg/dL [facility] >39 Low 3 triglyceride, serum, random 140 mg/dL [facility] 0-149 3 cholesterol, serum 193 mg/dL [facility] 100-199 HISTORY OF MEDICATION USE Medication Status Instructions Dates Provider Indications Com ments furosemide 40 mg tablet active TAKE 1 TABLET BY MOUTH EVERY DAY Tanya Arora MD Adipex-P 37.5 mg tablet active 1 tablet by mouth once a day Jennyfer Duran alprazolam 0.25 mg tablet active tablet by mouth Jennyfer Duran bupropion HCl 100 mg tablet active 1 tab by mouth daily, if not effective after 1 week may increase to 1 tab twice daily Jennyfer Duran RYBELSUS 7 MG ORAL TABLET completed one tab by mouth once daily when 3 mg run out in 30 days - Deo Alberto MD RYBELSUS 3 MG ORAL TABLET completed one tab by mouth once daily x30 days, then increase to 7mg daily - Deo Alberto MD Crestor 20 mg tablet active 1 tablet by mouth once a day Jennyfer Duran cholecalciferol (vitamin D3) 1,250 mcg (50,000 unit) capsule active 1 capsule by mouth once a week Jennyfer Duran ferrous sulfate 325 mg (65 mg iron) tablet active tablet by mouth once a day Jennyfer Duran cyanocobalamin (vitamin B-12) 1,000 mcg tablet active 1 tablet once a day Jennyfer Duran VITAMIN D3 1.25 MG (67026 UT) ORAL CAPSULE completed one capsule by mouth weekly - Nancy Aguayo VITAMIN B-12 1000 MCG ORAL TABLET completed One tablet daily - Nancy Aguayo FERROUS SULFATE 325 (65 FE) MG ORAL TABLET completed ONE PER DAY - Nancy Aguayo NALTREXONE HCL 50 MG ORAL TABLET completed 1/2 tab by mouth daily, if not effective after 1 week may increase to 1/2 tab twice daily - Nancy Aguayo ADIPEX-P 37.5 MG ORAL TABLET completed one tab by mouth daily - Nancy Aguayo albuterol sulfate 90 mcg/actuation HFA aerosol inhaler active Inhale 2 puff by mouth every six hours as needed Jennyfer Duran #9, 25 days supply, Prescribed by MICK POLLACK, Filled 06/23/2019 NAPROXEN SODIUM 550 MG ORAL TABLET completed TAKE 1 TABLET BY MOUTH TWICE DAILY REGULARLY - Nancy Aguayo #20, 10 days supply, Prescribed by FABIENNE YOON, Filled 07/12/2019 CYCLOBENZAPRINE HCL 10 MG ORAL TABLET completed TAKE 1 TABLET BY MOUTH AT BEDTIME - Nancy Aguayo #10, 10 days supply, Prescribed by FABIENNE YOON, Filled 07/12/2019 SULFAMETHOXAZOLE- TRIMETHOPRIM 800-160 MG ORAL TABLET completed TAKE 1 TABLET BY MOUTH EVERY 12 HOURS FOR 7 DAYS - Nancy Aguayo #14, 7 days supply, Prescribed by MICK POLLACK, Filled 08/18/2019 PRAVASTATIN SODIUM 20 MG ORAL TABLET completed TAKE 1 TABLET BY MOUTH ONCE DAILY - Nancy Aguayo #30, 30 days supply, Prescribed by MICK POLLACK, Filled 08/18/2019 CITALOPRAM HYDROBROMIDE 40 MG ORAL TABLET completed TAKE 1 TABLET BY MOUTH ONCE DAILY - Deo Alberto MD #30, 30 days supply, Prescribed by MICK OPLLACK, Filled 08/18/2019 OMEPRAZOLE 20 MG ORAL CAPSULE DELAYED RELEASE completed TAKE 1 CAPSULE BY MOUTH ONCE DAILY 30 MINUTES BEFORE A MEAL - Nancy Aguayo #30, 30 days supply, Prescribed by MICK POLLACK, Filled 09/03/2019 SOCIAL HISTORY Date Observation Value Provider smoking, date started 2008 Vignesh Arora MD smoking history, tot al pack/year 365 Tanya Arora MD smoking history, tot al pack/day 1 Tanya Arora MD cigarette use yes Tanya ross MD smoking status Current every day smoker Floyd Arora MD smoking, date started 2008 Vignesh Arora MD smoking history, tot al pack/year 365 Tanya Arora MD smoking history, tot al pack/day 1 Tanya Arora MD cigarette use yes Tanya ross MD smoking status Current every day smoker Floyd Arora MD social history E&M S moking History: P atient currently smokes every day. Deo Alberto MD social history reviewed E&M revi ewed - no changes required Deo Alberto MD smoking, date started 2008 Deb Aguayo smoking history, tot al pack/year 365 Nancy Aguayo smoking history, tot al pack/day 1 Nancy Aguayo cigarette use yes Nancy champagne smoking status Current every day smoker Satya Aguayo social history E&M S moking History: Amisha zaldivar currently smokes every day. Deo Alberto MD social history reviewed E&M revi ewed - no changes required Deo Alberto MD smoking, date started 2008 [facility] smoking history, tot al pack/year 365 [facility] smoking history, tot al pack/day 1 [facility] cigarette use yes [facility] smoking status Current every day smoker T [facility] FAMILY HISTORY Family Member Condition Father Family History of Hy pertension: Father Family History of Di abetes: Father Family History of CV A or Stroke: Mother Family History of Hy pertension: Mother Family History of Di abetes: Mother Family History of CV A or Stroke: INSURANCE PROVIDERS Payer name Policy type / Coverage type [place] [facility] ID [facility] [id number] Other [id number] ADVANCE DIRECTIVES Name Date DISCUSSED - NO DECISION MADE TREATMENT PLAN Date Name Performer Cardiology: T he following medications were removed from the medication list: Pravastatin Sodium 20 Mg Oral Tablet (Pravastatin sodium) ..... Take 1 tablet by mouth once daily & #13;Her updated medication list for this problem includes: Crestor 20 Mg Oral Tablet (Rosuvastatin calcium) ..... One tab. daily Tanya Arora MD Cardiology Tanya Arora MD Cardiology Tanya Arora MD Cardiology:Not dominant, just kn own carrier. Tanya Arora MD Cardiology:Venous do plers reviewed; bilateral reflux; wear compression stockings. Tanya Arora MD Cardiology:Will need to repeat e cho at some time. Tanya Arora MD Cardiology:Denies CP R outine stress normal in 2019 Tanya Arora MD Cardiology:Needs t and lifestyle changes c heck home sleep study Tanya Arora MD Cardiology:Recommend compression stockings C heck venous doppler w reflux study C urrently CEAP class IV W e have discussed treatment options for edema, need reflux study to further evaluate U se lasix 40mg once daily Tanya Arora MD Cardiology:take 5,00 0 international units once daily nature made or any generic version Tanya Arora MD :neg sklee pro rpr hep panel hiv and brain ct Deo Alberto MD Cardiology follow up : N EG PRO, RPR HEP PANEL HIV AND JENARO CT Deo Alberto MD Cardiology follow up : T he following medications were removed from the medication list: Pravastatin Sodium 20 Mg Oral Tablet (Pravastatin sodium) ..... Take 1 tablet by mouth once daily Her updated medication list for this problem includes: Crestor 20 Mg Oral Tablet (Rosuvastatin calcium) ..... One tab. daily Deo Alberto MD Cardiology follow up Deo ross MD Cardiology follow up :did not liek adipex and naltrexone Deo Alberto MD Cardiology follow up Deo ross MD Cardiology follow up Deo ross MD Cardiology follow up :neg stress and echo n eg trop echo and streasmeill Deo Alberto MD Cardiology follow up :min [address] Deo Alberto MD needs Fe infusion, f lagged precert 83:neg trop echo and streasmeill Deo Alberto MD needs Fe infusion, f lagged precert 83:NEG PRO, RPR HEP PANEL HIV AND JENARO CT Deo Alberto MD needs Fe infusion, flagged prece rt 8/3:NEG TROP Deo Alberto MD Cardiology Deo Alberto MD Cardiology Deo Alberto MD Cardiology Deo Alberto MD Cardiology:will rx,will think crisostomo rgerfy later Deo Alberto MD Cardiology Deo Alberto MD Cardiology Deo Alberto MD Cardiology Deo Alberto MD Cardiology:neg rpr hep panels an d hiv, neg brain ct Deo Alberto MD Cardiology:sx will cho Deo guerrero MD Date Name Auto-CPAP 6cm H2O -1 8cm H2O Sleep Study Home Venous Doppler Bilat eral LE - Reflux Sleep Study Home CT, Coronary Calcium Score DLCO - 78040 FRC - 92353 FVC - 66489 TROPONIN I D-DIMER, QUANTITATIV E PROBNP, N TERMINAL CT, Coronary Calcium Score Stress Routine Complete Echo Holter Monitor 24 Hr IRON AND TOTAL IRON BINDING CAPACITY FERRITIN VITAMIN B12 Vitamin D, 25-Hydrox y TSH, free T4, total T3 C-REACTIVE PROTEIN LIPID PANEL DLCO - 91760 FRC - 93507 FVC - 57056 HISTORY OF PROCEDURES Procedure Date Procedure Name Provider Procedure Notes S tatus Complex e/m visit add on Tanya Arora MD completed EKG Tanya Arora MD compl eted EKG Tanya Arora MD compl eted FVC / MVV - 24867 Deo Alberto MD c ompleted FRC - 92074 Deo Alberto MD complet ed SpO2 w/o 6min walk/titration Deo Alberto MD completed DLCO - 27925 Deo Alberto MD comple walker Stress EKG Deo Alberto MD complete d [place] Alberto MD complete d
--- OUTSIDE RECORDS SUMMARY | 2024-03-18 09:41 | XMS_ITS | Clinical Summary ---
Author Organization [facility] Address [address] [address] Care Team Providers Care Biodiesel Technology Manager Name Role Phone Steven Crouch MD Primary Care Provider [phone] Source Comments [facility],non-owned Affiliates and Associated Physician Practices is amultiple site organization consisting of ambulatory clinics and hospital sitesin [place], [place], [place] and [place]. This disclosure is being madepursuant to the Care Everywhere program and may not contain all information available regarding this patient. Last updated 17.[facility] Allergies Active Allergy Reactions Criticality Noted Date Comments Tramadol Rash Medium 08/19/2016 Medications * Be aware that medications may not be up to date on this document. Alwaysverify current medications with the patient. Medication Sig Dispensed Refills Start Date End Date Status albuterol HFA (PROVENTIL;VENTOL IN;PROAIR) 108 (90 Base) MCG/ACT inhaler albuterol sulfate HFA 90 mcg/actuation aerosol inhaler Active VENTOLIN HFA 108 (90 Base) MCG/ACT inhaler Inhale 2 puffs by mouth every 6 hours as needed 11/26/2019 Active SUMAtriptan (IMITREX) 25 MG tablet sumatriptan 25 mg tablet Active simvastatin (ZOCOR) 40 MG tablet simvastatin 40 mg tablet Active phenazopyridine (PYRIDIUM) 100 MG tablet phenazopyridine 100 mg tablet Active omeprazole (PRILOSEC) 20 MG capsule omeprazole 20 mg capsule,delayed release Active pravastatin (PRAVACHOL) 20 MG tablet Take 20 mg by mouth once daily 08/18/2019 Active loratadine (CLARITIN) 10 MG tablet loratadine 10 mg tablet Active ferrous sulfate 325 (65 FE) MG tablet Take 325 mg by mouth once daily 11/11/2019 Active buPROPion (WELLBUTRIN) 100 MG tablet TAKE 1 TABLET BY MOUTH ONCE DAILY. IF NOT EFFECTIVE AFTER 1 WEEK MAY INCREASE TO 1 TABLET TWICE DAILY 12/10/2019 Active mirabegron ER 24hr (MYRBETRIQ) 50 MG tabletIndications :Urinary Frequency,Urinary Urgency Take 1 tablet by mouth once daily Reasons: Frequent Urination, Urinary Urgency 30 tablet 3 03/06/2020 Active HYDROcodone-aceta minophen ([place]) 5-325 MG tablet Take 1 (one) tablet by mouth every 6 hours as needed pain 02/14/2022 Active Active Problems No known active problems Social History Tobacco Use Types Packs/Day Years Used Date Smoking Tobacco: Every Day Smokeless Tobacco: Never Alcohol Use Standard Drinks/Week Comments Never 0 (1 standard drink = 0.6 oz pur e alcohol) AUDIT-C Answer Date Recorded Q1: How often do you have a drink containing alc ohol? Never 03/06/2020 Average Number of Drinks Not on file 021 Frequency of Binge Drinking Not on file 02/24 Sex and Gender Information Value Date Recorded Sex Assigned at Not on file Gender Identity Not on file Sexual Orientation Not on file Last Filed Vital Signs Vital Sign Reading Time Taken Comments Blood Pressure 123/71 03/06/2020 2:58 PM LABOR UNION BUSINESS REPRESENTATIVE Pulse 78 03/06/2020 2:58 PM LABOR UNION BUSINESS REPRESENTATIVE Temperature 36.2 ??C (97.2 ??F) 03/06/2020 2:58 PM CS T Respiratory Rate - - Oxygen Saturation 100% 03/06/2020 2:58 PM LABOR UNION BUSINESS REPRESENTATIVE Inhaled Oxygen Concentration - - Weight 113.8 kg (250 lb 12.8 oz) 03/06/2020 2:58 PM LABOR UNION BUSINESS REPRESENTATIVE Height 167.6 cm (5' 6 ) 03/06/2020 2:58 PM LABOR UNION BUSINESS REPRESENTATIVE Body Mass Index 40.48 03/06/2020 2:58 PM LABOR UNION BUSINESS REPRESENTATIVE Plan of Treatment Health Maintenance Due Date Last Done Comments MAMMOGRAM 1981 PAP SMEAR 1981 HIV SCREENING 1996 HEPATITIS C SCREENING 11/30/1999 DTAP/TDAP/TD VACCINES (1 - Tdap) 2000 HEPATITIS B VACCINE (1 of 3 - 19+ 3-dose series) 2000 PNEUMOCOCCAL VACCINE (1 of 2 - PCV) 2000 COVID-19 VACCINE (1 - 2023-2 5 season) 2023 INFLUENZA VACCINE (#1) 2023 DEPRESSION SCREENING 02/25/2024 ZOSTER VACCINE (1 of 2) 12/05/2031 HIB VACCINE Aged Out No longer eligi ble based on patient's age to complete this topic HPV VACCINE Aged Out No longer eligi ble based on patient's age to complete this topic MENINGOCOCCAL (Group B) VACCINE Aged Out No longer eligible based on patient's age to complete this topic MENINGOCOCCAL VACCINE Aged Out No mario chandni eligible based on patient's age to complete this topic Insurance Payer Benefit Plan / Group Subscriber ID Effective Dates Phone Address Type CIGNA OON CIGNA/SUREFIT [id number] Effective for all dates [address] [place] [address] Commercial CIGNA OON CIGNA/SUREFIT [id number] Effective for all dates [address] [place] [address] Commercial CIGNA OON CIGNA/SUREFIT [id number] Effective for all dates [address] [place] [address] Commercial CIGNA OON CIGNA/SUREFIT [id number] Effective for all dates [address] [place] [address] Commercial ANTHEM BLUE CROSS TRADITIONAL [id number] 05/26/2019-Prese nt [address] [place] [address] PPO CIGNA OON CIGNA/SUREFIT [id number] 02/24/2021-P rese nt [address] [place] [address] Commercial CIGNA OON CIGNA/SUREFIT [id number] 02/24/2021-P rese nt [address] [place] [address] Commercial CIGNA OON CIGNA/SUREFIT [id number] 02/24/2021-P rese nt [address] [place] [address] Commercial CIGNA OON CIGNA/SUREFIT [id number] 02/24/2021-P rese nt [address] [place] [address] Commercial CIGNA OON CIGNA/SUREFIT [id number] 02/24/2021-P rese nt [address] [place] [address] Commercial CIGNA OON CIGNA/SUREFIT [id number] 02/24/2021-P rese nt [address] [place] [address] Commercial CIGNA OON CIGNA/SUREFIT [id number] 02/24/2021-P rese nt [address] [place] [address] Commercial CIGNA OON CIGNA/SUREFIT [id number] 02/24/2021-P rese nt [address] [place] [address] Commercial CIGNA OON CIGNA/SUREFIT [id number] 02/24/2021-P rese nt [address] [place] [address] Commercial CIGNA OON CIGNA/SUREFIT [id number] 02/24/2021-P rese nt [address] [place] [address] Commercial CIGNA OON CIGNA/SUREFIT [id number] 02/24/2021-P rese nt [address] [place] [address] Commercial CIGNA OON CIGNA/SUREFIT [id number] 02/24/2021-P rese nt [address] [place] [address] Commercial CIGNA OON CIGNA/SUREFIT [id number] 02/24/2021-P rese nt [address] [place] [address] Commercial CIGNA OON CIGNA/SUREFIT [id number] 02/24/2021-P rese nt [address] [place] [address] Commercial CIGNA OON CIGNA/SUREFIT [id number] 02/24/2021-P rese nt [address] [place] [address] Commercial CIGNA OON CIGNA/SUREFIT [id number] 02/24/2021-P rese nt [address] [place] [address] Commercial CIGNA OON CIGNA/SUREFIT [id number] 02/24/2021-P rese nt [address] [place] [address] Commercial CIGNA OON CIGNA/SUREFIT [id number] 02/24/2021-P rese nt [address] [place] [address] Commercial ANTHEM BLUE CROSS TRADITIONAL [id number] 05/26/2019-Prese nt [address] [place] [address] PPO ANTHEM BLUE CROSS TRADITIONAL 05/26/2019-Prese nt [address] [place] [address] PPO Care Teams Biodiesel Technology Manager Relationship Specialty Start Date End Date Steven Crouch MD [address] [place] [address] [facility] - General 12/25/17
--- OUTSIDE RECORDS SUMMARY | 2024-03-18 09:41 | XMS_ITS | Patient Health Summary ---
Author Organization [facility] Address [address] [place] [address] Care Team Providers Care Coffee Sommelier Name Role Phone Steven Crouch MD Primary Care Provider [phone] Note from [facility],non-owned Affiliates and Associated Physician Practices is amultiple site organization consisting of ambulatory clinics and hospital sitesin [place], [place], [place] and [place]. This disclosure is being madepursuant to the Care Everywhere program and may not contain all information available regarding this patient. Last updated 17.[facility] Allergies * Tramadol(Rash) -Medium Criticality Medications * Be aware that medications may not be up to date on this document. Alwaysverify current medications with the patient. * albuterol HFA (PROVENTIL;VENTOLIN;PROAIR) 108 (90 Base) MCG/ACT inhaler albuterol sulfate HFA 90 mcg/actuation aerosol inhaler * VENTOLIN HFA 108 (90 Base) MCG/ACT inhaler(Started 11/26/2019) Inhale 2 puffs by mouth every 6 hours as needed * SUMAtriptan (IMITREX) 25 MG tablet sumatriptan 25 mg tablet * simvastatin (ZOCOR) 40 MG tablet simvastatin 40 mg tablet * phenazopyridine (PYRIDIUM) 100 MG tablet phenazopyridine 100 mg tablet * omeprazole (PRILOSEC) 20 MG capsule omeprazole 20 mg capsule,delayed release * pravastatin (PRAVACHOL) 20 MG tablet(Started 08/18/2019) Take 20 mg by mouth once daily * loratadine (CLARITIN) 10 MG tablet loratadine 10 mg tablet * ferrous sulfate 325 (65 FE) MG tablet(Started 11/11/2019) Take 325 mg by mouth once daily * buPROPion (WELLBUTRIN) 100 MG tablet(Started 12/10/2019) TAKE 1 TABLET BY MOUTH ONCE DAILY. IF NOT EFFECTIVE AFTER 1 WEEK MAY INCREASE TO 1 TABLET TWICE DAILY * mirabegron ER 24hr (MYRBETRIQ) 50 MG tablet(Started 03/06/2020) Take 1 tablet by mouth once daily Reasons: Frequent Urination, Urinary Urgency 3 refills by 03/06/2021 * HYDROcodone-acetaminophen ([place]) 5-325 MG tablet(Started 02/14/2022) Take 1 (one) tablet by mouth every 6 hours as needed pain Active Problems No known active problems Social [...] Comments Blood Pressure 123/71 03/06/2020 2:58 PM TELECOMMUNICATIONS LINE MECHANIC Pulse 78 03/06/2020 2:58 PM TELECOMMUNICATIONS LINE MECHANIC Temperature 36.2 ??C (97.2 ??F) 03/06/2020 2:58 PM CS T Respiratory Rate - - Oxygen Saturation 100% 03/06/2020 2:58 PM TELECOMMUNICATIONS LINE MECHANIC Inhaled Oxygen Concentration - - Weight 113.8 kg (250 lb 12.8 oz) 03/06/2020 2:58 PM TELECOMMUNICATIONS LINE MECHANIC Height 167.6 cm (5' 6 ) 03/06/2020 2:58 PM TELECOMMUNICATIONS LINE MECHANIC Body Mass Index 40.48 03/06/2020 2:58 PM TELECOMMUNICATIONS LINE MECHANIC Procedures * URINALYSIS AUTO - POINT OF CARE (AMB) [facility](Performed 03/06/2020) Performed for Urinary tract infection with hematuria, site unspecified * CULTURE URINE(Performed 03/06/2020) Performed for Urinary tract infection with hematuria, site unspecified * HGB HCT PANEL(Performed 05/24/2007) Performed for Normal Delivery ([facility]) * CBC W AUTO DIFFERENTIAL(Performed 05/22/2007) Performed for Normal Delivery ([facility]) * URINALYSIS REFLEX TO MICROSCOPIC NO CULTURE(Performed 05/22/2007) Performed for Normal Delivery ([facility]) * URINALYSIS REFLEX TO MICROSCOPIC NO CULTURE(Performed 05/14/2007) Performed for Complic Labor NEC-Antepart ([facility]) * URINALYSIS REFLEX TO MICROSCOPIC NO CULTURE(Performed 05/14/2007) Performed for Complic Labor NEC-Antepart (HCC) * URINALYSIS REFLEX TO MICROSCOPIC NO CULTURE(Performed 03/12/2007) Performed for Complic Labor NEC-Antepart ([facility]) * URINALYSIS REFLEX TO MICROSCOPIC NO CULTURE(Performed 01/25/2007) Performed for Headache * CT HEAD WO CONTRAST(Performed 01/25/2007) Performed for Headache * COMPREHENSIVE METABOLIC PANEL(Performed 01/25/2007) Performed for Headache * CBC W AUTO DIFFERENTIAL(Performed 01/25/2007) Performed for Headache Results * URINALYSIS AUTO - POINT OF CARE (AMB) [facility] (03/06/2020) Glucose UA neg Bilirubin UA POCT neg Ketones UA POCT neg Specific Lynn UA 1.025 Blood Urine POCT neg pH UA 5.5 Protein UA neg Urobilinogen UA neg Nitrite UA neg WBC UA neg Urine URINE / Unknown 03/06/2020 Laura Willoughby JD EDWARDS-MACHINIST [facility] - POINT O F CARE ORDERABLES * CULTURE URINE (03/06/2020) Culture [facility] Comment: ??CULTURE, URINE, ROUTINE ?Micro Number: ?[id number] ??Test Status: ? Final ??Specimen Source: ?? URINE, CLEAN CATCH ??Specimen Quality: ??Adequate ??Result: ?Growth of mixed steven was isolated, suggesting ? probable contamination. No further testing will ? be performed. If clinically indicated, ? recollection using a method to minimize ? contamination, with prompt transfer to Urine ? Culture Transport Tube, is recommended. Test Performed at: [address] ??[id number] YEFRI ZEPEDA MD 03/06/2020 03/07/2020 4:1 6 AM TELECOMMUNICATIONS LINE MECHANIC Laura Willoughby APRN-MACHINIST BRAKE LAB - MICROBI OLOGY ORDERABLES Performing Organization Address [facility]/ZIP Co de Phone Number [address] [address] * (ABNORMAL) HGB HCT PANEL (05/24/2007 5:54 AM CDT) Hemoglobin 9.9(L) 11.7 - 15.5 gm/dL [facility] Hematocrit 31.5(L) 36 - 46 % [facility] 05/24/2007 5:54 AM CDT Jacklyn Medina MD LAB - HEMATOLOGY ORDERABLES Performing Organization Address [facility] Co de Phone Number [facility] [address] [place] [address] * (ABNORMAL) CBC W AUTO DIFFERENTIAL (05/22/2007 9:33 PM CDT) Only the most recent of2 resultswithin the time period is included. WBC 8.0 4.0 - 11.0 K/[facility] RBC 4.37 3.80 - 5.30 M/[facility] Hemoglobin 10.6(L) 11.7 - 15.5 gm/dL [facility] Hematocrit 33.4(L) 36 - 46 % [facility] MCV 76.4(L) 80 - 99 fL [facility] MCH 24.3(L) 26 - 34 pg [facility] MCHC 31.7(L) 32 - 36 gm/dL [facility] RDW 14.3 11.5 - 14.5 % [facility] Platelet Count 268 150 - 400 K/[facility] Granulocytes % 63.6 43 - 70 % [facility] Lymphocytes % 27.9 22 - 41 % [facility] Monocytes % 7.4 2 - 13 % [facility] Eosinophils % 0.8 0 - 6 % [facility] Basophils % 0.3 0 - 2 % [facility] Granulocytes Absolute 5.1 1.7 - 7.7 [facility] Lymphocytes Absolute 2.2 1.0 - 3.0 [facility] Monocytes Absolute 0.6 0.2 - 1.0 [facility] Eosinophils Absolute 0.1 0.0 - 0.4 [facility] Basophils Absolute 0.0 0.0 - 0.1 [facility] 05/22/2007 9:33 PM CDT Jacklyn Medina MD LAB - HEMATOLOGY ORDERABLES Performing Organization Address City/State/[facility] Co de Phone Number [facility] [address] [place] [address] * (ABNORMAL) URINALYSIS ROUTINE AUTO (05/22/2007 8:30 PM CDT) Only the most recent of5 resultswithin the time period is included. Source CleanCatch [facility] Color UA Dark Yellow [facility] Character UA Hazy [facility] Specific Lynn UA >=1.030 1.002 - 1.030 [facility] pH UA 6.0 5.0 - 8.0 [facility] Protein UA TRACE NEG [facility] Blood UA NEGATIVE NEG [facility] Leukocyte UA 1+ NEG [facility] Nitrite UA NEGATIVE NEG [facility] Glucose UA NEGATIVE NEG [facility] Ketone UA 2+ NEG [facility] Bilirubin UA Negative NEG [facility] Urobilinogen UA 0.2 0.1 - 1.0 E.U./dl [facility] WBC UA 5-10(H) 0 - 1 /HPF [facility] Epithelial Cell UA 5-10(H) 0 - 1 /HPF [facility] Bacteria UA Trace none [facility] Comment Bacteria UA: less than 12 cc submitted. [facility] 05/22/2007 8:30 PM CDT Jacklyn Medina MD LAB - URINALYSIS ORDERABLES [facility] [address] [place] [address] * CT HEAD NON CONTRAST (01/25/2007 12:33 PM TELECOMMUNICATIONS LINE MECHANIC) Anatomical Region Laterality Modality Head Other 01/25/2007 12:3 3 PM TELECOMMUNICATIONS LINE MECHANIC Narrative 01/26/2007 7:21 AM TELECOMMUNICATIONS LINE MECHANIC Noncontrast Head CT. HISTORY- Headache. The brain parenchyma and ventricular system are within normal limits. There is no hemorrhage, mass, or mass effect. No extra-axial fluid collection is seen. Bone windows demonstrates clear paranasal sinuses and mastoids.No skull fracture is seen. IMPRESSION- Negative noncontrast CT of the brain. ? Reading Radiologist- Terry Silva M.D. ? Releasing Rob Silva M.D. ? Released Date Time- 01/26/07 0722 ? Car Mechanic Helper- YOLANDE ? ADM- PT,HAS NO PCP ?ATT- [facility] REF- ?CON- PCP- PT,HAS NO PCP ?SCP- Dickson Kennedy CT ORDERABLES * (ABNORMAL) COMPREHENSIVE METABOLIC PANEL (01/25/2007 12:30 PM TELECOMMUNICATIONS LINE MECHANIC) Glucose 76. 65 - 105 mg/dL [facility] BUN 9. 7 - 18 mg/dL [facility] Creatinine .6 0.5 - 1.2 mg/dL [facility] BUN/Creatinine Ratio 15.9 [facility] Sodium 137. 137 - 145 mEq/L [facility] Potassium 5.0 3.6 - 5.0 mEq/L [facility] Chloride 106. 98 - 107 mEq/L [facility] CO2 21.(L) 22 - 31 mEq/L [facility] Anion Gap 10. [facility] Calcium 8.9 8.4 - 10.6 mg/dL [facility] Alkaline Phosphatase 64. 38 - 126 U/L [facility] ALT 21. 7 - 56 U/L [facility] AST 37. 5 - 40 U/L [facility] Bilirubin Total .7 0.2 - 1.3 mg/dL [facility] Protein Total 7.0 6.3 - 8.2 gm/dL [facility] Albumin 3.2(L) 3.9 - 5.0 gm/dL [facility] eGFR by MDRD >60 SEE BELOW ml/min/1.7 3 m2 [facility] Comment: >60 Normal Chronic Disease <60 Renal Failure <15 01/25/2007 12:3 0 PM TELECOMMUNICATIONS LINE MECHANIC Narrative [facility] - 01/25/2007 1:11 PM TELECOMMUNICATIONS LINE MECHANIC T2 [facility] - CHEMISTRY MARIANO VASQUEZ [facility] [address] [place] [address] Care Teams Coffee Sommelier Relationship Specialty Start Date End Date Steven Crouch MD [address] [place] [address] PCP - General 12/25/17
--- OUTSIDE RECORDS SUMMARY | 2024-03-18 09:41 | XMS_ITS | Referral Summary ---
Author Organization [facility] Address [address] [place] [address] Care Team Providers Care Licensed Investment Sales Assistant Name Role Phone Steven Crouch MD Primary Care Provider [phone] Source Comments [facility],non-owned Affiliates and Associated Physician Practices is amultiple site organization consisting of ambulatory clinics and hospital sitesin [place], [place], [place]. This disclosure is being madepursuant to the Care Everywhere program and may not contain all information available regarding this patient. Last updated 17.[facility] Allergies Active Allergy Reactions Criticality Noted Date [...] 30 tablet 3 03/06/2020 Active HYDROcodone-aceta minophen ([place]) 5-325 MG tablet Take 1 (one) tablet [...] Comments Blood Pressure 123/71 03/06/2020 2:58 PM RIGGER UP Pulse 78 03/06/2020 2:58 PM RIGGER UP Temperature 36.2 ??C (97.2 ??F) 03/06/2020 2:58 PM CS T Respiratory Rate - - Oxygen Saturation 100% 03/06/2020 2:58 PM RIGGER UP Inhaled Oxygen Concentration - - Weight 113.8 kg (250 lb 12.8 oz) 03/06/2020 2:58 PM RIGGER UP Height 167.6 cm (5' 6 ) 03/06/2020 2:58 PM RIGGER UP Body Mass Index 40.48 03/06/2020 2:58 PM RIGGER UP Plan of Treatment Not on file Insurance Payer Benefit Plan / Group Subscriber ID Effective Dates Phone Address Type JAYLIN MOSQUEDA/SUREFIT [id number] Effective for all dates [address]94-21 11 [address] [place] [address] Commercial CIGNA OON CIGNA/SUREFIT [id number] Effective for all dates [id number] 11 [address] [place] [address] Commercial CIGNA OON CIGNA/SUREFIT [id number] Effective for all dates [id number] 11 [address] [place] [address] Commercial CIGNA OON CIGNA/SUREFIT [id number] Effective for all dates [address]94-21 11 [address] [place] [address] Commercial ANTHEM BLUE CROSS TRADITIONAL [id number] 05/26/2019-Prese nt [address] [place] [address] PPO CIGNA OON CIGNA/SUREFIT [id number] 02/24/2021-P rese nt [address] [place] [address] Commercial CIGNA OON CIGNA/SUREFIT [id number] 02/24/2021-P rese nt [address] [place] [address] Commercial CIGNA OON CIGNA/SUREFIT [id number] 02/24/2021-P rese nt [address] [place] [address] Commercial CIGNA OON CIGNA/SUREFIT [id number] 02/24/2021-P rese nt [address] [place] [address] Commercial CIGNA OON CIGNA/SUREFIT [id number] 02/24/2021-P rese nt [address] [place] [address] Commercial CIGNA OON CIGNA/SUREFIT [id number] 02/24/2021-P rese nt [address] [place] [address] Commercial CIGNA OON CIGNA/SUREFIT [id number] 02/24/2021-P rese nt [address] [place] [address] Commercial CIGNA OON CIGNA/SUREFIT [id number] 02/24/2021-P rese nt [address] [place] [address] Commercial CIGNA OON CIGNA/SUREFIT [id number] 02/24/2021-P rese nt [address] [place] [address] Commercial CIGNA OON CIGNA/SUREFIT [id number] 02/24/2021-P rese nt [address] [place] [address] Commercial CIGNA OON CIGNA/SUREFIT [id number] 02/24/2021-P rese nt [address] [place] [address] Commercial CIGNA OON CIGNA/SUREFIT [id number] 02/24/2021-P rese nt [address] [place] [address] Commercial CIGNA OON CIGNA/SUREFIT [id number] 02/24/2021-P rese nt [address] [place] [address] Commercial CIGNA OON CIGNA/SUREFIT [id number] 02/24/2021-P rese nt [address] [place] [address] Commercial CIGNA OON CIGNA/SUREFIT [id number] 02/24/2021-P rese nt [address] [place] [address] Commercial CIGNA OON CIGNA/SUREFIT [id number] 02/24/2021-P rese nt [address] [place] [address] Commercial CIGNA OON CIGNA/SUREFIT [id number] 02/24/2021-P rese nt [address] [place] [address] Commercial CIGNA OON CIGNA/SUREFIT [id number] 02/24/2021-P rese nt [address] [place] [address] Commercial ANTHEM BLUE CROSS TRADITIONAL [id number] 05/26/2019-Prese nt [address] [place] [address] PPO ANTHEM BLUE CROSS TRADITIONAL 05/26/2019-Prese nt [address] [place] [address] PPO Care Teams Licensed Investment Sales Assistant Relationship Specialty Start Date End Date Steven Crouch MD [address] [place] [address] PCP - General 12/25/17
--- OUTSIDE RECORDS SUMMARY | 2024-03-18 09:42 | XMS_ITS | Encounter Summary ---
Author Organization [employer] Address [address] [place] [address] Care Team Providers Care Sales Operations Manager Name Role Phone Nancy Lewis MD Primary Care Provider [phone] Encounter Details Date Type Department Care Team (Latest Contact Info) Description 08/13/2004 Outpatient Historical HIS PATIENT IN A BED Luz Marina Camp MD NO ADDRESS ON FILE OTHER CURR COND-ANTEPARTUM (Primary Dx) Social History Tobacco Use Types Packs/Day Years Used Date Smoking Tobacco: Never Assessed Comments Unknown Sex and Gender Information Value Date Recorded Sex Assigned at Not on file Legal Sex Female 3:01 AM RN PROVIDER RELATIONS Gender Identity Not on file Sexual Orientation Not on file documented as of this encounter Plan of Treatment Not on file documented as of this encounter Procedures Procedure Name Priority Date/Time Associated Diagnosis Comments URINALYSIS WITH REFLEX CULTURE Routine 08/13/2004 6:22 PM CDT URINALYSIS W/REFLEX MICROSCOPIC Routine 08/13/2004 6:22 PM CDT CBC WITH DIFFERENTIAL Routine 08/13/2004 4:45 PM CDT CBC WITH DIFFERENTIAL Routine 08/13/2004 4:45 PM CDT URIC ACID Routine 08/13/2004 4:45 PM CDT AST Routine 08/13/2004 4:45 PM CDT LACTATE DEHYDROGENASE Routine 08/13/2004 4:45 PM CDT URINALYSIS W/REFLEX MICROSCOPIC Routine 08/13/2004 4:29 PM CDT documented in this encounter Results * (ABNORMAL) URINALYSIS (08/13/2004 6:22 PM CDT) COLOR UA Yellow INTERFACE SYSTEM CLARITY UA Clear Clear INTERFACE SYSTEM SPECIFIC GRAVITY UA 1.020 1.001 - 1.035 INTERFACE SYSTEM PH UA 5.5 5.0 - 8.0 INTERFACE SYSTEM LEUKOCYTE ESTERASE UA Negative Negative INTERFACE SYSTEM NITRITE UA Negative Negative INTERFACE SYSTEM PROTEIN UA Trace(A) Negative INTERFACE SYSTEM GLUCOSE UA 2+(A) Negative INTERFACE SYSTEM KETONES UA 2+(A) Negative INTERFACE SYSTEM UROBILINOGEN UA <1 <1 mg/dL INTE RFACE SYSTEM Comment: Effective 08/08/04, Urobilinogen will be reported in mg/dL resulting in a n increased sensitivity at lower urobilinogen levels. ??Previously, results were reported in [facility] unit(EU)/dL. ??1+ results previously reported as 1 EU/dL (normal) will become 2 mg/dL (abnormal). BILIRUBIN UA Negative Negative INTERFA CE SYSTEM BLOOD UA Trace(A) Negative INTERFACE SYSTEM WBC UA 2 0 - 5 /HPF INTERFACE SYSTEM RBC UA 7(H) 0 - 4 /HPF INTERFACE SYSTEM EPITHELIAL CELLS, URINE 2-5 /HPF INTERFACE SYSTEM 08/13/2004 6:22 PM CDT us Luz Marina Camp MD URINE ORDERABLES Final R esult INTERFACE SYSTEM Refer to clinic/hospital department * URINALYSIS WITH REFLEX CULTURE (08/13/2004 6:22 PM CDT) URINE CULTURE ORDER Culture ordered INTERFACE SYSTEM Comment: Criteria for a reflex culture include one or more of the following: ??Abn ormal nitrite, leukocyte esterase, WBCs or RBCs. ??Lack of qualifying criteria does not exclude the possiblity of a urinary tract infection. ??Dilute urine, drug interference, etc. may decrease the sensitivity of the criteria analytes. 08/13/2004 6:22 PM CDT Luz Marina Camp MD URINE ORDERABLES Final R esult Performing Organization Address [facility] Phone Number INTERFACE SYSTEM Refer to clinic/hospital department * CBC WITH DIFFERENTIAL (08/13/2004 4:45 PM CDT) NEUTROPHILS 64 45 - 70 % INTERFAC E SYSTEM LYMPHOCYTES 28 16 - 45 % INTERFAC E SYSTEM MONOCYTES 7 3 - 13 % INTERFACE SYSTEM EOSINOPHILS 1 0 - 7 % INTERFAC E SYSTEM BASOPHILS 0 0 - 2 % INTERFACE SYSTEM NEUTROPHIL ABSOLUTE 4.62 1.90 - 7.00 K/uL INTERFACE SYSTEM LYMPHOCYTE ABSOLUTE 2.03 0.70 - 4.50 K/uL INTERFACE SYSTEM MONOCYTE ABSOLUTE 0.49 0.10 - 1.30 K/uL INTERFACE SYSTEM EOSINOPHIL ABSOLUTE 0.06 0.00 - 0.70 K/uL INTERFACE SYSTEM BASOPHILS ABSOLUTE 0.02 0.00 - 0.20 K/uL INTERFACE SYSTEM 08/13/2004 4:45 PM CDT Luz Marina Camp MD HEMATOLOGY ORDERABLES Fi nal Result Performing Organization Address [facility] Phone Number INTERFACE SYSTEM Refer to clinic/hospital department * (ABNORMAL) CBC WITH DIFFERENTIAL (08/13/2004 4:45 PM CDT) WBC 7.2 4.0 - 9.8 K/uL INTERFACE SYSTEM RBC 4.15 3.90 - 4.90 M/uL INTERFACE SYSTEM HEMOGLOBIN 11.0(L) 11.8 - 14.8 g/dL INTERFACE SYSTEM HEMATOCRIT 35.0(L) 35.5 - 44.0 % INTERFACE SYSTEM MCV 84.3 82.0 - 99.0 fL INTERFACE SYSTEM MCH 26.5(L) 27.2 - 32.6 pg INTERFACE SYSTEM MCHC 31.4(L) 31.5 - 35.5 % INTERFACE SYSTEM RDW 14.8(H) 11.5 - 14.5 % INTERFACE SYSTEM RDW-STDEV 45.1 37.1 - 48.7 fL INTERFACE SYSTEM PLATELETS 258 140 - 350 K/uL INTERFACE SYSTEM MPV 9.6 9.3 - 12.4 fL INTERFACE SYSTEM 08/13/2004 4:45 PM CDT Luz Marina Camp MD HEMATOLOGY ORDERABLES Fi nal Result Performing Organization Address [facility] Co de Phone Number INTERFACE SYSTEM Refer to clinic/hospital department * URIC ACID (08/13/2004 4:45 PM CDT) URIC ACID 5.7 2.3 - 6.6 mg/dL INTERFACE SYSTEM 08/13/2004 4:45 PM CDT Luz Marina Camp MD CHEMISTRY ORDERABLES Fin al Result Performing Organization Address [facility] Phone Number INTERFACE SYSTEM Refer to clinic/hospital department * LACTATE DEHYDROGENASE (08/13/2004 4:45 PM CDT) LD (LACTATE DEHYDROGENASE) 165 135 - 214 U/L INTERFACE SYSTEM 08/13/2004 4:45 PM CDT Luz Marina Camp MD CHEMISTRY ORDERABLES Fin al Result Performing Organization Address [facility] Phone Number INTERFACE SYSTEM Refer to clinic/hospital department * AST (08/13/2004 4:45 PM CDT) AST 15 12 - 32 U/L INTERFAC E SYSTEM 08/13/2004 4:45 PM CDT Luz Marina Camp MD CHEMISTRY ORDERABLES Fin al Result Performing Organization Address [facility] Co de Phone Number INTERFACE SYSTEM Refer to clinic/hospital department * (ABNORMAL) URINALYSIS (08/13/2004 4:29 PM CDT) COLOR UA Yellow INTERFACE SYSTEM CLARITY UA Slt. Cloudy(A) Clear INTERFACE SYSTEM SPECIFIC GRAVITY UA 1.020 1.001 - 1.035 INTERFACE SYSTEM PH UA 6.0 5.0 - 8.0 INTERFACE SYSTEM LEUKOCYTE ESTERASE UA 2+(A) Negative INTERFACE SYSTEM NITRITE UA Negative Negative INTERFACE SYSTEM PROTEIN UA 1+(A) Negative INTERFACE SYSTEM GLUCOSE UA Negative Negative INTERFACE SYSTEM KETONES UA 2+(A) Negative INTERFACE SYSTEM UROBILINOGEN UA <1 <1 mg/dL INTE RFACE SYSTEM Comment: Effective 08/08/04, Urobilinogen will be reported in mg/dL resulting in a n increased sensitivity at lower urobilinogen levels. ??Previously, results were reported in Cyndi unit(EU)/dL. ??1+ results previously reported as 1 EU/dL (normal) will become 2 mg/dL (abnormal). BILIRUBIN UA Negative Negative INTERFA CE SYSTEM BLOOD UA 2+(A) Negative INTERFACE SYSTEM WBC UA 12(H) 0 - 5 /HPF INTERFACE SYSTEM RBC UA 84(H) 0 - 4 /HPF INTERFACE SYSTEM EPITHELIAL CELLS, URINE Many /HPF INTERFACE SYSTEM 08/13/2004 4:29 PM CDT us Luz Marina Camp MD URINE ORDERABLES Final R esult INTERFACE SYSTEM Refer to clinic/hospital department documented in this encounter Visit Diagnoses Diagnosis Other current maternal conditions classifiable elsewhere, antepartum- Primary documented in this encounter Additional Health Concerns Infection Onset Date Last Indicated Resolved Time R/O COVID-19 02/01/2021 02/06/2021 02/06/2021 11:3 2 AM RN PROVIDER RELATIONS documented as of this encounter Care Teams Sales Operations Manager Relationship Specialty Start Date End Date Nancy Lewis MD [address] [place] [address] PCP - General Family Practice 09/06/21 documented as of this encounter
--- OUTSIDE RECORDS SUMMARY | 2024-03-18 09:42 | XMS_ITS | Encounter Summary ---
Author Organization [email or web address] Address [address] [place] [address] Care Team Providers Care Director Of Sales And Marketing Name Role Phone Nancy Lewis MD Primary Care Provider [phone] Encounter Details Date Type Department Care Team (Latest Contact Info) Description 10/09/2006 Outpatient Historical HIS OB PREADMIT Hermelinda Parisi MD [address] [place] [address] [address] [place] [id number] Other Current Maternal Conditions Classifiable Elsewhere, Antepartum (Primary Dx) Social History Tobacco Use Types Packs/Day Years Used Date Smoking Tobacco: Never Assessed Comments Unknown Sex and Gender Information Value Date Recorded Sex Assigned at Not on file Legal Sex Female 3:01 AM DIRECTOR CORPORATE COMMUNICATIONS Gender Identity Not on file Sexual Orientation Not on file documented as of this encounter Plan of Treatment Not on file documented as of this encounter Visit Diagnoses Diagnosis Other current maternal conditions classifiable elsewhere, antepartum- Primary documented in this encounter Additional Health Concerns Infection Onset Date Last Indicated Resolved Time R/O COVID-19 02/01/2021 02/06/2021 02/06/2021 11:3 2 AM DIRECTOR CORPORATE COMMUNICATIONS documented as of this encounter Care Teams Director Of Sales And Marketing Relationship Specialty Start Date End Date Nancy Lewis MD [address] [place] [phone] PCP - General Family Practice 09/06/21 documented as of this encounter
--- OUTSIDE RECORDS SUMMARY | 2024-03-18 09:42 | XMS_ITS | Clinical Summary ---
Author Organization [facility] Address [address] [place] [address] Phone Care Team Providers Care Meter Supervisor Name Role Phone Nancy Lewis MD Primary Care Provider [phone] Allergies Active Allergy Reactions Criticality Noted Date Comments Tramadol Rash Low 02/01/2021 Medications albuterol (PROVENTIL,VENT JOSUE) 90 mcg/Actuation Inhalation HFAA Take 2 Puffs by inhalation every 4 hours as needed. Active HYDROcodone-regi taminophen (NORCO) 5-325 mg tabletIndicatio ns:Lymphadeniti s, acute,Neck abscess Take 1-2 Tablets by mouth every 6 hours as needed for Pain, Moderate or Pain, Severe. Max Daily Amount: 8 Tablets 30 Tablet 2 Active sertraline (ZOLOFT) 50 mg tablet 1 Active losartan (COZAAR) 25 mg tablet Take 25 mg by mouth daily. Active ibuprofen (MOTRIN) 800 mg tablet Take 800 mg by mouth every 6 hours as needed for Pain, Mild. 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 30 Tablet 2 Active SIMVASTATIN ORAL Take by mouth. Activ e diazePAM (VALIUM) 2 mg tabletIndicatio ns:Generalized anxiety disorder Take 1 Tablet (2 mg) by mouth 1 time daily as needed for Anxiety. 6 Tablet 2 Active ergocalciferol (VITAMIN D2) 50,000 unit capsuleIndicati ons:Vitamin D deficiency Take 1 Capsule (50,000 Units) by mouth every 7 days. 12 Capsule 3 Active Active Problems Problem Noted Date Diagnosed Date Vitamin D insufficiency 10/22/2021 Mixed hyperlipidemia 10/22/2021 Family history of early CAD 10/22/2021 Family History Medical History Relation Name Comments Anxiety Brother No Known Problems Daughter 1 No Known Problems Daughter 2 Anxiety Father Anxiety Mother Breast Cancer Paternal Grandmother No Known Problems Son 1 No Known Problems Son 2 No Known Problems Son 3 Relation Name Status Comments Brother Daughter 1 Alive Daughter 2 Alive Father Mother Paternal Grandmother Son 1 Alive Son 2 Alive Son 3 Alive Social History Tobacco Use Types Packs/Day Years Used Date Smoking Tobacco: Former Smokeless Tobacco: Never Alcohol Use Standard Drinks/Week Comments No 0 (1 standard drink = 0.6 oz pur e alcohol) Comments No Sex and Gender Information Value Date Recorded Sex Assigned at Not on file Legal Sex Female 3:01 AM PLASTIC SURGERY MANAGER Gender Identity Not on file Sexual Orientation Not on file Last Filed Vital Signs Vital Sign Reading Time Taken Comments Blood Pressure 122/88 10/22/2021 8:49 AM CDT Pulse 64 10/22/2021 8:49 AM CDT Temperature 37.3 ??C (99.1 ??F) 10/22/2021 8:49 AM CD T Respiratory Rate 18 10/22/2021 8:49 AM CDT Oxygen Saturation 97% 10/22/2021 8:49 AM CDT Inhaled Oxygen Concentration - - Weight 113.9 kg (251 lb) 10/22/2021 8:49 AM CDT Height 165.1 cm (5' 5 ) 10/22/2021 8:49 AM CDT Body Mass Index 41.77 10/22/2021 8:49 AM CDT Plan of Treatment Health Maintenance Due Date Last Done Comments DTAP/TDAP/TD VACCINES (1 - Tdap) 2000 HEPATITIS B VACCINES (1 of 3 - 19+ 3-dose series) 2000 PNEUMOCOCCAL VACCINE 0-64 YE ARS (1 of 2 - PCV) 2000 BREAST CANCER SCREENING 2021 INFLUENZA VACCINE (#1) 2023 Preventative Visit- Commercial 02/25/2024 CERVICAL CANCER SCREENING 06/18/2024 06/18/2021 HPV VACCINES Aged Out No longer eligi ble based on patient's age to complete this topic Insurance [employer] OPEN ACCESS * Guarantor: [employer] THRU V (C) Account Type Relation to Patient Date of Phone Billing Address Corporate Employer ATTN: PRERNA CALDERÓN [address] [address] [employer] ACCESS Care Teams Meter Supervisor Relationship Specialty Start Date End Date Nancy Lewis MD [address] [facility] [phone] PCP - General Family Practice 09/06/21
--- OUTSIDE RECORDS SUMMARY | 2024-03-18 09:42 | XMS_ITS ---
Author Organization [facility] [employer] [facility] Address [address] [place] [address] Care Team Providers Care Roll Machine Operator Name Role Phone Manisha Joyner Unavailable [phone] REASON FOR VISIT RE:Michaelle Social History Sex Assigned At : Social History Observation Description Sex Assigned At Female Encounters Encounter Location Date Provider Diagnosis [facility] [employer] [facility] [address] [facility] [address] [place] [address] 01/12/2024 Manisha Joyner Plan Of Treatment No Information Progress Notes * TOMMY FRYDOB: [birth year] (43 yo F)Acc No.[id number]:01/12/2024 Patient:?TOMMY FRY :1980???Age:43 Y???Sex:Female Address:[address] [place] [address], [address] * true * Date:? Generated for Estuardo adorno/Kaity/eTransmitting on:?03/18/2024 09:41 AM SUPPLIER QUALITY MANAGER
--- OUTSIDE RECORDS SUMMARY | 2024-03-18 09:42 | XMS_ITS | Encounter Summary ---
Author Organization [employer] Address [address] [place] [address] Care Team Providers Care Nutritional Assistant Name Role Phone Nancy Lewis MD Primary Care Provider [phone] Encounter Details Date Type Department Care Team (Late st Contact Info) Description 09/12/2006 Outpatient Historical HIS EMERGENCY ROOM [facility] Jet Flores [place] [address] Er, Authorized P NO ADDRESS ON FILE Urinary Tract Infection, Site not Specified (Primary Dx) Social History Tobacco Use Types Packs/Day Years Used Date Smoking Tobacco: Never Assessed Comments Unknown Sex and Gender Information Value Date Recorded Sex Assigned at Not on file Legal Sex Female 3:01 AM OR RN Gender Identity Not on file Sexual Orientation Not on file documented as of this encounter Plan of Treatment Not on file documented as of this encounter Visit Diagnoses Diagnosis Urinary tract infection, site not specified- Primary documented in this encounter Additional Health Concerns Infection Onset Date Last Indicated Resolved Time R/O COVID-19 02/01/2021 02/06/2021 02/06/2021 11:3 2 AM OR RN documented as of this encounter Care Teams Nutritional Assistant Relationship Specialty Start Date End Date Nancy Lewis MD [address] [place] [phone] PCP - General Family Practice 09/06/21 documented as of this encounter
--- OUTSIDE RECORDS SUMMARY | 2024-03-18 09:42 | XMS_ITS ---
Author Organization [facility] [employer] [facility] Address [facility] [address] [place] [address] Care Team Providers Care Salesperson Recreational Vehicles Name Role Phone Manisha Joyner Unavailable [phone] REASON FOR VISIT RE:RE:Michaelle Social History Sex Assigned At : Social History Observation Description Sex Assigned At Female Encounters Encounter Location Date Provider Diagnosis [facility] [employer] [facility] [address] [facility] [address] [place] [address] 02/03/2024 Manisha Joyenr Plan Of Treatment No Information Progress Notes * TOMMY FRYDOB: [birth year] (43 yo F)Acc No.[id number]:02/03/2024 Patient:?TOMMY FRY :1980???Age:43 Y???Sex:Female Address:[address] [address], [address] * true * Date:? Generated for Alinai tila/Kaity/eTransmitting on:?03/18/2024 09:41 AM WINERY CELLAR HAND
--- OUTSIDE RECORDS SUMMARY | 2024-03-18 09:42 | XMS_ITS | Encounter Summary ---
Author Organization [employer] Address [address] [place] [address] Care Team Providers Care Rider Ticket Worker Name Role Phone Nancy Lewis MD Primary Care Provider [phone] Encounter Details Date Type Department Care Team (Latest Contact Info) Description 10/08/2004 Inpatient Historical HIS PATIENT IN A BED Luz Marina Camp MD NO ADDRESS ON FILE POST TERM PREG-DELIVERED,40-42 WKS (Primary Dx) Social History Tobacco Use Types Packs/Day Years Used Date Smoking Tobacco: Never Assessed Comments Unknown Sex and Gender Information Value Date Recorded Sex Assigned at Not on file Legal Sex Female 3:01 AM PUMPING STATION SUPERVISOR Gender Identity Not on file Sexual Orientation Not on file documented as of this encounter Plan of Treatment Not on file documented as of this encounter Procedures Procedure Name Priority Date/Time Associated Diagnosis Comments HEMOGLOBIN AND HEMATOCRIT Routine 10/09/2004 9:20 AM CDT CBC WITH DIFFERENTIAL Routine 10/08/2004 9:27 AM CDT CBC WITH DIFFERENTIAL Routine 10/08/2004 9:27 AM CDT documented in this encounter Results * (ABNORMAL) HEMOGLOBIN AND HEMATOCRIT (10/09/2004 9:20 AM CDT) HEMOGLOBIN 10.9(L) 11.8 - 14.8 g/dL INTERFACE SYSTEM HEMATOCRIT 33.8(L) 35.5 - 44.0 % INTERFACE SYSTEM 10/09/2004 9:20 AM CDT Luz Marina Camp MD HEMATOLOGY ORDERABLES Fi nal Result Performing Organization Address [facility] Phone Number INTERFACE SYSTEM Refer to clinic/hospital department * CBC WITH DIFFERENTIAL (10/08/2004 9:27 AM CDT) NEUTROPHILS 64 45 - 70 % INTERFAC E SYSTEM LYMPHOCYTES 28 16 - 45 % INTERFAC E SYSTEM MONOCYTES 7 3 - 13 % INTERFACE SYSTEM EOSINOPHILS 1 0 - 7 % INTERFAC E SYSTEM BASOPHILS 0 0 - 2 % INTERFACE SYSTEM NEUTROPHIL ABSOLUTE 4.26 1.90 - 7.00 K/uL INTERFACE SYSTEM LYMPHOCYTE ABSOLUTE 1.89 0.70 - 4.50 K/uL INTERFACE SYSTEM MONOCYTE ABSOLUTE 0.44 0.10 - 1.30 K/uL INTERFACE SYSTEM EOSINOPHIL ABSOLUTE 0.06 0.00 - 0.70 K/uL INTERFACE SYSTEM BASOPHILS ABSOLUTE 0.02 0.00 - 0.20 K/uL INTERFACE SYSTEM 10/08/2004 9:27 AM CDT Luz Marina Camp MD HEMATOLOGY ORDERABLES Fi nal Result Performing Organization Address [facility] Phone Number INTERFACE SYSTEM Refer to clinic/hospital department * (ABNORMAL) CBC WITH DIFFERENTIAL (10/08/2004 9:27 AM CDT) WBC 6.7 4.0 - 9.8 K/uL INTERFACE SYSTEM RBC 4.20 3.90 - 4.90 M/uL INTERFACE SYSTEM HEMOGLOBIN 10.4(L) 11.8 - 14.8 g/dL INTERFACE SYSTEM HEMATOCRIT 33.3(L) 35.5 - 44.0 % INTERFACE SYSTEM MCV 79.3(L) 82.0 - 99.0 fL INTERFACE SYSTEM MCH 24.8(L) 27.2 - 32.6 pg INTERFACE SYSTEM MCHC 31.2(L) 31.5 - 35.5 % INTERFACE SYSTEM RDW 14.6(H) 11.5 - 14.5 % INTERFACE SYSTEM RDW-STDEV 42.3 37.1 - 48.7 fL INTERFACE SYSTEM PLATELETS 233 140 - 350 K/uL INTERFACE SYSTEM MPV 9.8 9.3 - 12.4 fL INTERFACE SYSTEM 10/08/2004 9:27 AM CDT us Luz Marina Camp MD HEMATOLOGY ORDERABLES Fi nal Result INTERFACE SYSTEM Refer to clinic/hospital department documented in this encounter Visit Diagnoses Diagnosis Post term , delivered with or without mention of antepartum condition- Primary documented in this encounter Additional Health Concerns Infection Onset Date Last Indicated Resolved Time R/O COVID-19 02/01/2021 02/06/2021 02/06/2021 11:3 2 AM PUMPING STATION SUPERVISOR documented as of this encounter Care Teams Rider Ticket Worker Relationship Specialty Start Date End Date Nancy Lewis MD [address] [facility] [place] [phone] PCP - General Family Practice 09/06/21 documented as of this encounter
--- OUTSIDE RECORDS SUMMARY | 2024-03-18 09:42 | XMS_ITS | Encounter Summary ---
Author Organization [employer] Address [address] [place] [address] Care Team Providers Care Instrument Assembly Supervisor Name Role Phone Nancy Lewis MD Primary Care Provider [phone] Encounter Details Date Type Department Care Team (Late st Contact Info) Description 07/31/2008 Outpatient Historical HIS EMERGENCY ROOM [facility] Er, Authorized P NO ADDRESS ON FILE Ishmael Long MD [address] [place] [address] [place] [address] Social History Tobacco Use Types Packs/Day Years Used Date Smoking Tobacco: Never Assessed Comments Unknown Sex and Gender Information Value Date Recorded Sex Assigned at Not on file Legal Sex Female 3:01 AM PILER Gender Identity Not on file Sexual Orientation Not on file documented as of this encounter Plan of Treatment Not on file documented as of this encounter Visit Diagnoses Not on filedocumented in this encounter Additional Health Concerns Infection Onset Date Last Indicated Resolved Time R/O COVID-19 02/01/2021 02/06/2021 02/06/2021 11:3 2 AM PILER documented as of this encounter Care Teams Instrument Assembly Supervisor Relationship Specialty Start Date End Date Nancy Lewis MD [address] [place] [phone] PCP - General Family Practice 09/06/21 documented as of this encounter
--- OUTSIDE RECORDS SUMMARY | 2024-03-18 09:42 | XMS_ITS | Encounter Summary ---
Author Organization [employer] Address [address] [place] [address] Care Team Providers Care Slide Developer Name Role Phone Nancy Lewis MD Primary Care Provider [phone] Encounter Details Date Type Department Care Team (Late st Contact Info) Description 12/02/2006 Outpatient Historical HIS EMERGENCY ROOM [facility] Conversion, History Er, Authorized P NO ADDRESS ON FILE Abdominal Pain, Unspecified Site (Primary Dx) Social History Tobacco Use Types Packs/Day Years Used Date Smoking Tobacco: Never Assessed Comments Unknown Sex and Gender Information Value Date Recorded Sex Assigned at Not on file Legal Sex Female 3:01 AM SERVICE RIG OPERATOR Gender Identity Not on file Sexual Orientation Not on file documented as of this encounter Plan of Treatment Not on file documented as of this encounter Visit Diagnoses Diagnosis Abdominal pain, unspecified site- Primary documented in this encounter Additional Health Concerns Infection Onset Date Last Indicated Resolved Time R/O COVID-19 02/01/2021 02/06/2021 02/06/2021 11:3 2 AM SERVICE RIG OPERATOR documented as of this encounter Care Teams Slide Developer Relationship Specialty Start Date End Date Nancy Lewis MD [address] [place] [address] PCP - General Family Practice 09/06/21 documented as of this encounter
== END 2024-03-14 01:04 | disposition home or self-care (01) ==
PROVIDERS: Registered Nurse; Emergency Provider Emergency Medicine; PCP Emergency Medicine
DX: J40 Bronchitis, not specified as acute or chronic (principal); J06.9 Acute upper respiratory infection, unspecified; Z20.822 Contact with and (suspected) exposure to COVID-19; I10 Essential (primary) hypertension; E66.9 Obesity, unspecified; Z68.41 Body mass index [BMI] 40.0-44.9, adult; F32.A Depression, unspecified; F41.9 Anxiety disorder, unspecified; F17.290 Nicotine dependence, other tobacco product, uncomplicated; Z79.899 Other long term (current) drug therapy; R94.31 Abnormal electrocardiogram [ECG] [EKG]
CPT/HCPCS: 36415; 71046; 80053; 85025; 87637; 93005; 94640; 96374; 96375; 99284; A9270; J1100; J1885

== ENCOUNTER 2024-12-01 16:11 | Emergency (ER) | payer MEDICAID, SELFPAY ==
--- NOTE | ~2024-12-01 | XR_ITS ---
Examination: XR tibia fibula RT 2V Clinical History: pain Comparison: None Technique: 2 views right tibia fibula Findings/impression: 1. No fracture or other acute abnormality identified right tibia fibula. Reviewed, dictated and finalized at location R.
--- NOTE | ~2024-12-01 | US_ITS ---
RIGHT LOWER EXTREMITY VENOUS DUPLEX Clinical History: r/o dvt COMPARISON: 04/30/2023 TECHNIQUE: Grayscale, color, duplex/spectral Doppler sonography right leg FINDINGS: Right leg common femoral, femoral, popliteal, and calf veins compressible and color Doppler patent. Normal augmentation with distal compression. No internal echoes. IMPRESSION: 1. No right leg DVT. Reviewed, dictated and finalized at location R. IMPRESSION: 1. No right leg DVT.
[2024-12-01 16:13] VITALS: BP 141/74; PULSE 74; RESP 18; TEMP 36.2; O2SAT 100
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
[2024-12-01] MEDS: KETOROLAC 30 MG/ML VIAL (*BKC) IM (18:29)
[2024-12-01 18:40] LABS: Hematocrit 42.3 % (37.0-47.0); Hemoglobin 13.3 g/dL (12.0-15.0); Immature Granulocyte Percent A 0.2 % (0-0.5); Lymphocytes Absolute Auto 3.24 K/mm3 (0.9-3.2); Mean Corpuscular HGB Conc 31.4 g/dl (32-36); Mean Corpuscular Hemoglobin 25.8 pg (26-34); Mean Corpuscular Volume 82.1 fl (80-100); Nucleated Red Blood Cells Absolute Auto 0.000 K/mm3 (0.0-0.012); Nucleated Red Blood Cells Perc 0.0 % (0.0-0.2); Platelet Count Result 360 k/mm3 (150-375); Red Blood Count 5.15 M/mm3 (4.2-5.4); White Blood Count 8.3 K/mm3 (4.5-10.0)
[2024-12-01 18:51] LABS: Alanine Aminotransferase 25 U/L (6-35); Albumin Level 4.0 g/dL (3.5-5.1); Alkaline Phosphatase 66 U/L (38-126); Anion Gap 4 mmol/L (4-12); Aspartate Amino Transferase 22 U/L (14-36); Bilirubin,Total 0.1 mg/dL (0.2-1.3); Blood Urea Nitrogen 18 mg/dL (7-17); Calcium 9.4 mg/dL (8.4-10.2); Carbon Dioxide 29 mmol/L (22-30); Chloride 106 mmol/L (98-107); Estimated CRCL calculation 107 ml/min; Estimated Glomerular Filt Rate > 60; Glucose 107 mg/dL (65-110); Potassium 4.2 mmol/L (3.4-5.0); Sodium 139 mmol/L (137-145); Total Protein 7.7 g/dL (6.3-8.2)
[2024-12-01 20:01] VITALS: BP 163/72; PULSE 72; RESP 16; TEMP 36.6; O2SAT 98
[2024-12-01 21:00] VITALS: BP 150/72; PULSE 75; RESP 16; TEMP 36.6; O2SAT 98
[2024-12-01] MEDS: DOXYCYCLINE HYCLATE 100 MG TABLET PO (21:07)
== END 2024-12-01 21:17 | disposition home or self-care (01) ==
PROVIDERS: Nurse Practitioner Family; Emergency Provider Emergency Medicine
DX: L03.115 Cellulitis of right lower limb (principal); F17.290 Nicotine dependence, other tobacco product, uncomplicated
CPT/HCPCS: 36415; 73590; 80053; 85025; 93971; 96372; 99284; A9270; J1885

== ENCOUNTER 2024-12-11 11:18 | Emergency (ER) | payer MEDICAID, SELFPAY ==
--- OUTSIDE RECORDS SUMMARY | 2024-12-11 11:22 | XMS_ITS | Encounter Summary ---
Author Organization [employer] Address [address] [place] [address] Care Team Providers Care Composition Professor Name Role Phone Nancy Lewis MD Primary Care Provider [phone] Encounter Details Date Type Department Care Team [...] on file Legal Sex Female 3:01 AM NURSE STAFF Gender Identity Not on file Sexual Orientation [...] ORDERABLES Fi nal Result Performing Organization Address [facility] Phone Number INTERFACE SYSTEM Refer to [...] ORDERABLES Fi nal Result Performing Organization Address [facility] Phone Number INTERFACE SYSTEM Refer to [...] COVID-19 02/01/2021 02/06/2021 02/06/2021 11:3 2 AM NURSE STAFF documented as of this encounter Care Teams Composition Professor Relationship Specialty Start Date End Date Nancy Lewis MD [address] [facility] [place] [phone] PCP - General Family Practice 09/06/21 documented as of this encounter
--- OUTSIDE RECORDS SUMMARY | 2024-12-11 11:22 | XMS_ITS | Encounter Summary ---
Author Organization [employer] Address [address] [place] [address] Care Team Providers Care Registered Private Duty Nurse Name Role Phone Nancy Lewis MD Primary Care Provider [phone] Encounter Details Date Type Department Care Team (Late st Contact Info) Description 09/12/2006 Emergency [facility] Jet Flores MD [address] [place] [id number] [address], Authorized P NO ADDRESS ON FILE Urinary Tract Infection, Site not Specified (Primary Dx) Social History Tobacco Use Types Packs/Day Years Used Date Smoking Tobacco: Never Assessed Comments Unknown Sex and Gender Information Value Date Recorded Sex Assigned at Not on file Legal Sex Female 3:01 AM HOSPITAL CODER Gender Identity Not on file Sexual Orientation Not on file documented as of this encounter Plan of Treatment Not on file documented as of this encounter Visit Diagnoses Diagnosis Urinary tract infection, site not specified- Primary documented in this encounter Additional Health Concerns Infection Onset Date Last Indicated Resolved Time R/O COVID-19 02/01/2021 02/06/2021 02/06/2021 11:3 2 AM HOSPITAL CODER documented as of this encounter Care Teams Registered Private Duty Nurse Relationship Specialty Start Date End Date Nancy Lewis MD [address] [place] [phone] PCP - General Family Practice 09/06/21 documented as of this encounter
--- OUTSIDE RECORDS SUMMARY | 2024-12-11 11:22 | XMS_ITS | Encounter Summary ---
Author Organization [employer] Address [address] [place] [address] Care Team Providers Care Associate Agent Insurance Sales Name Role Phone Nancy Lewis MD Primary Care Provider [phone] Encounter Details Date Type Department Care Team [...] on file Legal Sex Female 3:01 AM IT SENIOR ANALYST Gender Identity Not on file Sexual Orientation [...] n increased sensitivity at lower urobilinogen levels. Previously, results were reported in Cyndi unit(EU)/dL. 1+ results previously reported as 1 EU/dL (normal) [...] include one or more of the following: Abn ormal nitrite, leukocyte esterase, WBCs or RBCs. Lack of qualifying criteria does not exclude the possiblity of a urinary tract infection. Dilute urine, drug interference, etc. may decrease the sensitivity of the criteria analytes. 08/13/2004 6:22 PM CDT Luz Marina Camp MD URINE ORDERABLES Final R esult Performing Organization Address [facility] Phone Number INTERFACE SYSTEM Refer to [...] ORDERABLES Fi nal Result Performing Organization Address [facility] Phone Number INTERFACE SYSTEM Refer to [...] ORDERABLES Fi nal Result Performing Organization Address [facility] Co de Phone Number INTERFACE SYSTEM Refer to clinic/hospital department * URIC ACID (08/13/2004 4:45 PM CDT) URIC ACID 5.7 2.3 - 6.6 mg/dL INTERFACE SYSTEM 08/13/2004 4:45 PM CDT Luz Marina Camp MD CHEMISTRY ORDERABLES Fin al Result Performing Organization Address [facility] Phone Number INTERFACE SYSTEM Refer to clinic/hospital department * LACTATE DEHYDROGENASE (08/13/2004 4:45 PM CDT) LD (LACTATE DEHYDROGENASE) 165 135 - 214 U/L INTERFACE SYSTEM 08/13/2004 4:45 PM CDT Luz Marina Camp MD CHEMISTRY ORDERABLES Fin al Result Performing Organization Address [facility] Phone Number INTERFACE SYSTEM Refer to clinic/hospital department * AST (08/13/2004 4:45 PM CDT) AST 15 12 - 32 U/L INTERFAC E SYSTEM 08/13/2004 4:45 PM CDT Luz Marina Camp MD CHEMISTRY ORDERABLES Fin al Result Performing Organization Address [facility] Phone Number INTERFACE SYSTEM Refer to [...] n increased sensitivity at lower urobilinogen levels. Previously, results were reported in Cyndi unit(EU)/dL. 1+ results previously reported as 1 EU/dL (normal) [...] COVID-19 02/01/2021 02/06/2021 02/06/2021 11:3 2 AM IT SENIOR ANALYST documented as of this encounter Care Teams Associate Agent Insurance Sales Relationship Specialty Start Date End Date Nancy Leiws MD [address] [place] [phone] PCP - General Family Practice 09/06/21 documented as of this encounter
--- OUTSIDE RECORDS SUMMARY | 2024-12-11 11:22 | XMS_ITS | Encounter Summary ---
Author Organization [employer] Address [address] [place] [address] Care Team Providers Care Cold Patcher Name Role Phone Nancy Lewis MD Primary Care Provider [phone] Encounter Details Date Type Department Care Team (Late st Contact Info) Description 07/31/2008 Emergency [facility] [place], Authorized P NO ADDRESS ON FILE Ishmael Long MD [address] [place] [address] [place] [address] Social History Tobacco Use Types Packs/Day Years Used Date Smoking Tobacco: Never Assessed Comments Unknown Sex and Gender Information Value Date Recorded Sex Assigned at Not on file Legal Sex Female 3:01 AM MANAGER VIDEO GAMES Gender Identity Not on file Sexual Orientation Not on file documented as of this encounter Plan of Treatment Not on file documented as of this encounter Visit Diagnoses Not on filedocumented in this encounter Additional Health Concerns Infection Onset Date Last Indicated Resolved Time R/O COVID-19 02/01/2021 02/06/2021 02/06/2021 11:3 2 AM MANAGER VIDEO GAMES documented as of this encounter Care Teams Cold Patcher Relationship Specialty Start Date End Date Nancy Lewis MD [address] [place] [phone] PCP - General Family Practice 09/06/21 documented as of this encounter
--- OUTSIDE RECORDS SUMMARY | 2024-12-11 11:22 | XMS_ITS | Encounter Summary ---
Author Organization [employer] Address [address] [place] [address] Care Team Providers Care Relations Mgr Name Role Phone Nancy Lewis MD Primary Care Provider [phone] Encounter Details Date Type Department Care Team (Latest Contact Info) Description 10/09/2006 Outpatient Historical [facility] Hermelinda Parisi MD [address] [place] [address] [address] [place] [phone] Other Current Maternal Conditions Classifiable Elsewhere, Antepartum (Primary Dx) Social History Tobacco Use Types Packs/Day Years Used Date Smoking Tobacco: Never Assessed Comments Unknown Sex and Gender Information Value Date Recorded Sex Assigned at Not on file Legal Sex Female 3:01 AM THERAPIST Gender Identity Not on file Sexual Orientation Not on file documented as of this encounter Plan of Treatment Not on file documented as of this encounter Visit Diagnoses Diagnosis Other current maternal conditions classifiable elsewhere, antepartum- Primary documented in this encounter Additional Health Concerns Infection Onset Date Last Indicated Resolved Time R/O COVID-19 02/01/2021 02/06/2021 02/06/2021 11:3 2 AM THERAPIST documented as of this encounter Care Teams Relations Mgr Relationship Specialty Start Date End Date Nancy Lewis MD [address] [place] [phone] PCP - General Family Practice 09/06/21 documented as of this encounter
--- OUTSIDE RECORDS SUMMARY | 2024-12-11 11:22 | XMS_ITS | Clinical Summary ---
Author Organization [facility] [employer] Address [address] [place] [address] Care Team Providers Care Wire Galvanizer Name Role Phone Steven Crouch MD Primary Care Provider [phone] Source Comments [facility] [employer] [facility],non-owned Affiliates and Associated Physician Practices is amultiple site organization consisting of ambulatory clinics and hospital sitesin [place], [place], [place] and [place]. This disclosure is being madepursuant to the Care Everywhere program and may not contain all information available regarding this patient. Last updated 17.[facility] [employer] [facility] Allergies Active Allergy Reactions Criticality Noted Date Comments Tramadol Rash Medium 08/19/2016 Medications * Be aware that medications may not be up to date on this document. Alwaysverify current medications with the patient. albuterol HFA (PROVENTIL;DEANDRA TOLIN;PROAIR) 108 (90 Base) MCG/ACT inhaler albuterol sulfate HFA 90 mcg/actuation aerosol inhaler Active VENTOLIN HFA 108 (90 Base) MCG/ACT inhaler Inhale 2 puffs by mouth every 6 hours as needed 11/26/19 20 Active SUMAtriptan (IMITREX) 25 MG tablet sumatriptan 25 mg tablet Active simvastatin (ZOCOR) 40 MG tablet simvastatin 40 mg tablet Active phenazopyridin e (PYRIDIUM) 100 MG tablet phenazopyridine 100 mg tablet Active omeprazole (PRILOSEC) 20 MG capsule omeprazole 20 mg capsule,delayed release Active pravastatin (PRAVACHOL) 20 MG tablet Take 20 mg by mouth once daily 08/18/19 20 Active loratadine (CLARITIN) 10 MG tablet loratadine 10 mg tablet Active ferrous sulfate 325 (65 FE) MG tablet Take 325 mg by mouth once daily 11/11/19 20 Active buPROPion (WELLBUTRIN) 100 MG tablet TAKE 1 TABLET BY MOUTH ONCE DAILY. IF NOT EFFECTIVE AFTER 1 WEEK MAY INCREASE TO 1 TABLET TWICE DAILY 12/10/19 20 Active mirabegron ER 24hr (MYRBETRIQ) 50 MG tabletIndicati ons:Urinary Frequency,Urin mitchell Urgency Take 1 tablet by mouth once daily Reasons: Frequent Urination, Urinary Urgency 30 tablet 3 03/06/19 21 Active HYDROcodone-ac etaminophen (Henderson) 5-325 MG tablet Take 1 (one) tablet by mouth every 6 hours as needed pain 02/15/20 22 Active Active Problems No known active problems [...] of Binge Drinking Not on file 02/24 Comments Unknown Sex and Gender Information Value Date Recorded Sex Assigned at Not on file Legal Sex Female 6:04 AM PROCESS COACH Gender Identity Not on file Sexual Orientation Not on file Last Filed Vital Signs Vital Sign Reading Time Taken Comments Blood Pressure 123/71 03/06/2020 2:58 PM PROCESS COACH Pulse 78 03/06/2020 2:58 PM PROCESS COACH Temperature 36.2 C (97.2 F) 03/06/2020 2:58 PM PROCESS COACH Respiratory Rate - - Oxygen Saturation 100% 03/06/2020 2:58 PM PROCESS COACH Inhaled Oxygen Concentration - - Weight 113.8 kg (250 lb 12.8 oz) 03/06/2020 2:58 PM PROCESS COACH Height 167.6 cm (5' 6) 03/06/2020 2:58 PM PROCESS COACH Body Mass Index 40.48 03/06/2020 2:58 PM PROCESS COACH Plan of Treatment Health Maintenance Due Date Last Done Comments MAMMOGRAM 1981 HIV SCREENING 1996 HEPATITIS C SCREENING 11/30/1999 DTAP/TDAP/TD VACCINES (1 - Tdap) 2000 HEPATITIS B VACCINE (1 of 3 - 19+ 3-dose series) 2000 PNEUMOCOCCAL VACCINE (1 of 2 - PCV) 2000 PAP SMEAR 2002 HPV VACCINE (1 - 3-dose SCDM series) 2008 DEPRESSION SCREENING 02/25/2024 COVID-19 VACCINE (1 - 2023-2 5 season) 2024 INFLUENZA VACCINE (#1) 2024 ZOSTER VACCINE (1 of 2) 12/05/2031 HIB VACCINE Aged Out No longer eligi ble based on patient's age to complete this topic MENINGOCOCCAL (Group B) VACC INE SHARED DECISION-MAKING Aged Out No longer eligibl e based on patient's age to complete this topic MENINGOCOCCAL GROUPS A/C/Y/W VACCINE Aged Out No longer eligible b ased on patient's age to complete this topic Insurance ANTHEM CIGNA ANTH CIGNA CIGNA CIGNA ANTHEM CIGNA CIGNA CIGNA CIGNA CIGNA CIGNA CIGNA CIGNA Member Subscriber Plan / Payer (Ef fective 2021-) Name:Tommy Jones Relation to Subscriber:Self Name:TOMMY JONES Payer ID:[id number] (NAIC) Type:Commercial Address: [place] [phone] CIGNA Member Subscriber Plan / Payer (Ef fective 2021-Present) Name:Tommy Jones Relation to Subscriber:Self Name:TOMMY JONES Payer ID:[id number] (NAIC) Type:Commercial Address: [place] [phone] [employer]IGNA Member Subscriber Plan / Payer (Ef fective 2021-Present) Name:Tommy Jones Relation to Subscriber:Self Name:TOMMY JONES Payer ID:[id number] (NAIC) Type:Commercial Address: [place] [phone] CIG[employer] Member Subscriber Plan / Payer (Ef fective 2021-Present) Name:Tommy Jones Relation to Subscriber:Self Name:TOMMY JONES Payer ID:[id number] (NAIC) Type:Commercial Address: [place] [phone] CIGNA Member Subscriber Plan / Payer (Ef fective 2021-Present) Name:Tommy Jones Relation to Subscriber:Self Name:TOMMY JONES Payer ID:[id number] (NAIC) Type:Commercial Address: [place] [phone] CIGNA CIGNA CIGNA CIGNA CIGNA CIGNA Care Teams Wire Galvanizer Relationship Specialty Start Date End Date Steven Crouch MD [address] [place] [id number] PCP - General 12/25/17
--- OUTSIDE RECORDS SUMMARY | 2024-12-11 11:22 | XMS_ITS | Clinical Summary ---
Author Organization 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 Gender Identity Not on file Sexual Orientation Not on file Last Filed Vital Signs Vital Sign Reading Time Taken Comments Blood Pressure 122/88 10/22/2021 8:49 AM CDT Pulse 64 10/22/2021 8:49 AM CDT Temperature 37.3 C (99.1 F) 10/22/2021 8:49 AM CDT Respiratory Rate 18 10/22/2021 8:49 AM CDT Oxygen Saturation 97% 10/22/2021 8:49 AM CDT Inhaled Oxygen Concentration - - Weight 113.9 kg (251 lb) 10/22/2021 8:49 AM CDT Height 165.1 cm (5' 5) 10/22/2021 8:49 AM CDT Body Mass Index 41.77 10/22/2021 8:49 AM CDT Plan of Treatment Health Maintenance Due Date Last Done Comments DTAP/TDAP/TD VACCINES (1 - Tdap) 2000 HEPATITIS B VACCINES (1 of 3 - 19+ 3-dose series) 11/24 HPV/Cotest (21-29) 2002 HPV VACCINES (1 - 3-dose SCDM series) 2008 HPV/Cotest (30-65) 12/05/2011 BREAST CANCER SCREENING 2021 Preventative Visit- Commercial 02/25/2024 CERVICAL CANCER SCREENING 06/18/2024 PAP SMEAR 06/18/2024 06/18/2021 INFLUENZA VACCINE (#1) 2024 Insurance ALLEGIANCE OPEN ACCESS ALLEGIANCE OPEN ACCESS Care Teams Retail Experience Specialist Relationship Specialty Start Date End Date Nancy Lewis MD [address] [place] [id number] PCP - General Family Practice 09/06/21
--- OUTSIDE RECORDS SUMMARY | 2024-12-11 11:22 | XMS_ITS | Encounter Summary ---
Author Organization [employer] Address 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 Gender Identity Not on file Sexual Orientation Not on file documented as of this encounter Plan of Treatment Not on file documented as of this encounter Visit Diagnoses Diagnosis Abdominal pain, unspecified site- Primary documented in this encounter Additional Health Concerns Infection Onset Date Last Indicated Resolved Time R/O COVID-19 02/01/2021 02/06/2021 02/06/2021 11:3 2 AM 

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
[2024-12-11 11:25] VITALS: BP 111/68; PULSE 68; RESP 18; TEMP 36.2; O2SAT 99
--- NOTE | 2024-12-11 11:36 | ED_ITS ---
HPI - URI/Sore Throat General Chief Complaint: Ear Stated Complaint: LT Ear Pain Source: patient Mode of arrival: ambulatory Limitations: no limitations History of Present Illness HPI Narrative: This is a 44 y/o female patient that presents to the urgent care with reports of sore throat, fever, left ear pain for two days. patient states her 11 year old daughter tested positive for COVID 19 on December 04, 2024 for similar complaints. Patient states she has taken cough and cold medication with little relief. patient denies any N/V/D, headache, shortness of breath, chest pain, or distress. She is able to eat and drink with no concern. MD elicited complaint: fever, cough, sore throat, rhinorrhea, nasal congestion and sinus pain Onset (ago): day(s) (2) Consistency: constant and intermittent Description of mucous: clear Able to tolerate fluids by mouth: Yes Exacerbating factors: nothing Relieving factors: nothing Context: sick contacts Associated symptoms: fever, myalgias, rhinorrhea, nasal congestion, sore throat and cough Treatments prior to arrival: acetaminophen and cold medicine Related Data Home Medications ?Medication ?Instructions ?Recorded ?Confirmed ?Last Taken ?Type cholecalciferol (vitamin D3) 50 50 mcg PO DAILY 10/31/21 Unknown History mcg (2,000 unit) capsule (Vitamin D3) losartan 25 mg tablet 25 mg PO DAILY 10/19/2109/1410/30/21 History sertraline 50 mg tablet 50 mg PO DAILY 10/19/2109/1410/30/21 History simvastatin 20 mg tablet 20 mg PO DAILY 10/19/2109/1410/29/21 History alprazolam 1 mg tablet (Xanax) 1 mg PO BID PRN Anxiety 04/30/23 Unknown History Allergies Allergy/AdvReac Type Severity Reaction Status Date / Time tramadol Allergy Mild Rash Verified 12/11/24 11:24 Review of Systems Review of Systems: All systems reviewed & are unremarkable except as noted in HPI and below PMFSH Past Medical History Medical History Anxiety Depression HTN (hypertension) Obesity Surgical History Surgical History History of tubal ligation Social History Social History Smoking status: Former smoker Tobacco type: e-cigarettes/vaping Smoking end date: 02/24/21 Additional smoking assessment comments: 7 years smoking,currently vaping Living arrangements: with family Spiritual care concerns: No Exam Const: General: cooperative, comfortable, no acute distress, well developed, alert, awake and Physically active Nutritional Appearance: obese Orientation/consciousness: patient oriented x3 Limitations: no limitations HENMT: Head: normal to inspection, normocephalic and atraumatic Ears: hearing grossly normal bilaterally, external ears normal, TM's normal bilaterally and EAC's normal Face/Nose/Sinus: Normal external nose present, Nasal discharge present clear and normal facial exam Face and sinus: normal facial exam, sinuses nontender and face symmetric Mouth: Yes Normal oral and palatal mucosa present, Yes lip normal and Yes tongue normal Teeth and gingiva: dentition normal Throat: posterior oropharynx normal, tonsils normal and uvula midline Eyes: General: appearance normal, both eyes and all related structures Visual Carrasquillo: normal visual carrasquillo by confrontation Alignment and Position: alignment normal Neck: Neck: normal visual inspection and full ROM Thyroid: thyroid normal Chest: Chest palpation & inspection: normal inspection of the chest Resp: Effort & Inspection: normal respiratory effort and able to speak in complete sentences Auscultation: clear to auscultation bilaterally Cardio: Jugular venous distension: no JVD Rate: regular rate Rhythm: regular rhythm Heart sounds: S1 normal heart sound present and S2 normal heart sound present GI: Inspection: normal to inspection Percussion: Yes normal to percussion Auscultation: normal bowel sounds Skin: General skin exam: normal color and no rashes or lesions noted Neuro: General: oriented to person, oriented to place, oriented to time and Normal light touch and pain sensation Cranial nerves: Yes CN's II-XII intact bilaterally Cognition (Neuro): normal cognition Extrem: General: normal to inspection, full ROM and capillary refill normal Psych: Appearance: grossly normal Mental Status: mental status grossly normal Course Course Emergency Course: This is a 44 y/o female patient that presents to the urgent care with reports of sore throat, fever, left ear pain for two days. patient states her 11 year old daughter tested positive for COVID 19 on December 04, 2024 for similar complaints. Patient states she has taken cough and cold medication with little relief. patient denies any N/V/D, headache, shortness of breath, chest pain, or distress. She is able to eat and drink with no concern. COVID 19 test ordered, resulted positive. Educated patient on fina results, she verbalized understanding. Educated on quarantine and management. Educated on risk of family in home as well. Discussed over the counter management and follow up. Educated patient to Increase Fluids, Rest. Continue with tylenol and ibuprofen for fever and pain. Cough and cold medication over the counter for cough. Quarantine at home for 7 days, avoid contact with young, immune compromised or elderly. wear a mask for 7 days if out in public or until symptoms resolve. Refill of albuterol inhaler sent to pharmacy per request. Follow up with primary as needed. answered all questions to satisfaction, agreeable to plan. Patient denies any further needs or concerns to be addressed prior to discharge. Level of Care: Express Care Visit Vital Signs Vital signs: Vital Signs Temperature 97.2 F L 12/11/24 11:25 Pulse Rate 68 12/11/24 11:25 Respiratory Rate 18 12/11/24 11:25 Blood Pressure 111/68 12/11/24 11:25 Pulse Oximetry 99 12/11/24 11:25 Oxygen Delivery Room Air 12/11/24 11:25 Temperature 97.2 F L 12/11/24 11:25 Pulse Rate 68 12/11/24 11:25 Respiratory Rate 18 12/11/24 11:25 Blood Pressure 111/68 12/11/24 11:25 Pulse Oximetry 99 12/11/24 11:25 Oxygen Delivery Room Air 12/11/24 11:25 MDM - URI/Sore Throat Lab Data Labs: Lab Results 12/11/24 Range/Units 11:48 POC SARS CoV-2 Ag Positive (Negative) Discharge Plan Discharge Clinical Impression: COVID-19 Patient Disposition: Home Condition: Stable Instructions: Antibiotic Form, COVID-19 (Coronavirus Disease 2019) (ED), COVID- 19 and Children (ED) Additional Instructions: Increase Fluids, Rest Continue with tylenol and ibuprofen for fever and pain. Cough and cold medication over the counter for cough. Quarantine at home for 7 days, avoid contact with young, immune compromised or elderly. wear a mask for 7 days if out in public or until symptoms resolve. Follow up with primary as needed. Patient Language: [place] Prescriptions: Changed albuterol sulfate 90 mcg/actuation HFA aerosol inhaler 90 mcg inhalation Q4H PRN (Reason: shortness of breath or wheezing) 30 Days Qty: 8.5 0RF No Action simvastatin 20 mg tablet 20 mg PO DAILY losartan 25 mg tablet 25 mg PO DAILY sertraline 50 mg tablet 50 mg PO DAILY cholecalciferol (vitamin D3) [Vitamin D3] 50 mcg (2,000 unit) Capsule 50 mcg PO DAILY alprazolam [Xanax] 1 mg Tablet 1 mg PO BID PRN (Reason: Anxiety) hydrochlorothiazide 12.5 mg capsule 12.5 mg PO DAILY 30 Days Qty: 30 0RF cyclobenzaprine 10 mg tablet 10 mg PO TID PRN (Reason: muscle spasm) Qty: 20 0RF naproxen 375 mg tablet 375 mg PO BID Qty: 14 0RF Robitussin Cough-Chest Arnaldo DM 10-200 mg capsule 1 tab-cap PO ONCE PRN (Reason: cough) Qty: 14 0RF fluticasone propionate [Flonase Allergy Relief] 50 mcg/actuation spray,suspension 1 spray intranasal DAILY Qty: 16 0RF Rx Instructions: administer into each nostril albuterol sulfate [Ventolin HFA] 90 mcg/actuation HFA aerosol inhaler 1 inh inhalation QID Qty: 6.7 0RF doxycycline hyclate 100 mg tablet 100 mg PO BID Qty: 20 0RF Follow-up/Referrals: PHYSICIAN,SAS PROGRAMMER [Primary Care Provider, Internal Medicine] Time of Disposition: 11:55 Quality NIHSS Nursing Documentation ED NIHSS nursing documentation: reviewed/agree
[2024-12-11 11:50] LABS: EDCOVIDSCREEN Positive (Negative)
== END 2024-12-11 11:58 | disposition home or self-care (01) ==
PROVIDERS: Emergency Provider Nurse Practitioner Family
DX: U07.1 COVID-19 (principal); I10 Essential (primary) hypertension; F41.9 Anxiety disorder, unspecified; F32.A Depression, unspecified; E66.9 Obesity, unspecified; Z68.39 Body mass index [BMI] 39.0-39.9, adult; F17.290 Nicotine dependence, other tobacco product, uncomplicated
CPT/HCPCS: 87426; 99213; G0463

== ENCOUNTER 2024-12-29 18:21 | Emergency (ER) | payer OTHER, SELFPAY ==
[2024-12-29 18:37] VITALS: BP 130/71; PULSE 77; RESP 18; TEMP 36.3; O2SAT 98
[2024-12-29 18:59] LABS: EDSTREPNEGPOS1 Negative (Negative)
--- NOTE | 2024-12-29 19:21 | ED.URI ---
HPI - URI/Sore Throat General Chief Complaint: Upper Respiratory Infection Stated Complaint: sore throat Time Seen by Provider: 12/29/24 19:07 Source: patient, RN notes reviewed and old records reviewed Mode of arrival: ambulatory Limitations: no limitations History of Present Illness HPI Narrative: 44-year-old female patient with history of alpha-1 antitrypsin deficiency presents today with a 2 day history of sore throat, cough, nasal congestion, and fever up to 101. She also had COVID-19 2 weeks ago. She has been taking ibuprofen with some mild relief and currently rates her discomfort 5/10. Denies shortness of breath at this time, but states the cough episodes during the day can be severe. Her cough is most productive in the mornings, but she is unsure if this is due to the new vape she just started or this current illness. States she had an albuterol inhaler prescribed a few weeks ago here at [facility] when she was diagnosed with COVID-19, but states the pharmacy never received it. Related Data Home Medications ?Medication ?Instructions ?Recorded ?Confirmed ?Last Taken ?Type cholecalciferol (vitamin D3) 50 50 mcg PO DAILY 10/19/21 10/31/21 Unknown History mcg (2,000 unit) capsule (Vitamin D3) losartan 25 mg tablet 25 mg PO DAILY 10/19/21 10/31/21 10/30/21 History sertraline 50 mg tablet 50 mg PO DAILY 10/19/21 10/31/21 10/30/21 History simvastatin 20 mg tablet 20 mg PO DAILY 10/19/21 10/31/21 10/29/21 History alprazolam 1 mg tablet (Xanax) 1 mg PO BID PRN Anxiety 04/30/23 Unknown History Allergies Allergy/AdvReac Type Severity Reaction Status Date / Time tramadol Allergy Mild Rash Verified 12/29/24 18:44 [facility] Past Medical History Medical History (Updated 12/29/24 @ 19:46 by Hollie Elizabeth APRN, MAEHSH) [id number] deficiency Anxiety Depression HTN (hypertension) Obesity Surgical History Surgical History History of tubal ligation Social History Social History Tobacco type: e-cigarettes/vaping Smoking end date: 02/24/21 Additional smoking assessment comments: 7 years smoking,currently vaping Living arrangements: with family Spiritual care concerns: No Comments At time of signature, I have reviewed and agree with nursing past medical, surgical, social and family history unless otherwise noted. Please see nursing chart for further information. There is no relevant family history pertinent to the presenting complaint Exam Narrative: GENERAL: Mildly ill-appearing, well-nourished, and in no acute distress. HEAD: Normocephalic, atraumatic. EYES: EOMI. No redness or drainage. Conjunctivae normal. ENT: Mucous membranes pink and moist. Nares congested. No rhinorrhea. TMs normal bilaterally. Throat normal. Uvula midline. NECK: Normal AROM. Supple. No lymphadenopathy. CHEST: No respiratory distress. Clear to auscultation. HEART: Regular rate and rhythm. No murmur appreciated. EXTREMITIES: Normal range of motion. No edema. SKIN: Warm, dry, no rash. Capillary refill normal. Normal skin turgor. NEURO: No focal deficits. Alert and oriented x3. Gait steady. PSYCH: Normal affect. No signs of depression or anxiety. Course Course Level of Care: Express Care Visit Vital Signs Vital signs: Vital Signs Temperature 97.4 F L 12/29/24 18:37 Pulse Rate 77 12/29/24 18:37 Respiratory Rate 18 12/29/24 18:37 Blood Pressure 130/71 12/29/24 18:37 Pulse Oximetry 98 12/29/24 18:37 Oxygen Delivery Room Air 12/29/24 18:37 Temperature 97.4 F L 12/29/24 18:37 Pulse Rate 77 12/29/24 18:37 Respiratory Rate 18 12/29/24 18:37 Blood Pressure 130/71 12/29/24 18:37 Pulse Oximetry 98 12/29/24 18:37 Oxygen Delivery Room Air 12/29/24 18:37 Reviewed MDM - URI/Sore Throat MDM Narrative Medical decision making narrative: 44-year-old female patient with history of alpha-1 antitrypsin deficiency presents today with a 2 day history of sore throat, cough, nasal congestion, and fever up to 101. She also had COVID-19 2 weeks ago. She has been taking ibuprofen with some mild relief and currently rates her discomfort 5/10. Denies shortness of breath at this time, but states the cough episodes during the day can be severe. Her cough is most productive in the mornings, but she is unsure if this is due to the new vape she just started or this current illness. States she had an albuterol inhaler prescribed a few weeks ago here at [facility] when she was diagnosed with COVID-19, but states the pharmacy never received it. Upon exam, patient is mildly ill appearing with some nasal congestion. Lung auscultation normal. Rapid strep negative. Culture pending. Patient declines testing for influenza. A new albuterol inhaler will be sent to pharmacy along with a short course of prednisone due to patient's alpha 1 antitrypsin deficiency. Symptoms likely viral in etiology. Discussed [id number]-dewufhc medication use and duration of illness. Patient agrees with plan. Vital signs stable. Anticipatory guidance given. ED precautions given. Differential Diagnosis Differential diagnosis: Likely upper respiratory infection, viral infection, bronchitis, influenza, pharyngitis and other (Strep throat) Lab Data Attestation: I reviewed the patient's lab results. Labs: Lab Results 12/29/24 Range/Units 18:57 POC Grp A Strep Screen Negative (Negative) Critical Care Time Critical Care Time Critical Care Time: No Discharge Plan Discharge Clinical Impression: Upper respiratory infection Qualifiers: URI type: unspecified URI Qualified Code(s): J06.9 - Acute upper respiratory infection, unspecified Patient Disposition: Home Condition: Stable Instructions: Upper Respiratory Infection (DC) Additional Instructions: Your rapid strep swab was negative today at [facility]. You will be notified in a few days if the culture comes back positive for strep, and appropriate antibiotics will be called in for you at that time. Your symptoms are likely due to a viral illness, which is not treated with antibiotics. Viral symptoms can be present for up to 7-10 days. Take ibuprofen for fever or pain. Consider taking Mucinex during the day and a cough suppressant at night such as Robitussin DM. Use albuterol inhaler and prednisone as prescribed. Rest and stay hydrated. Follow up with your PCP in 5-7 days if symptoms are not improving. Go to the ER immediately if you have any difficulty breathing or swallowing. Patient Language: [place] Prescriptions: New prednisone 20 mg tablet 40 mg PO DAILY 5 Days Qty: 10 0RF albuterol sulfate 90 mcg/actuation HFA aerosol inhaler 2 inh inhalation Q4-6H PRN (Reason: shortness of breath or wheezing) Qty: 8.5 0RF (DME) [employer] MDI Spacer Spacer See Rx Instructions .ROUTE .MEDSUPPLY Qty: 1 0RF Rx Instructions: As directed Discontinued albuterol sulfate 90 mcg/actuation HFA aerosol inhaler 90 mcg inhalation Q4H PRN (Reason: shortness of breath or wheezing) 30 Days Qty: 8.5 0RF albuterol sulfate [Ventolin HFA] 90 mcg/actuation HFA aerosol inhaler 1 inh inhalation QID Qty: 6.7 0RF No Action simvastatin 20 mg tablet 20 mg PO DAILY losartan 25 mg tablet 25 mg PO DAILY sertraline 50 mg tablet 50 mg PO DAILY cholecalciferol (vitamin D3) [Vitamin D3] 50 mcg (2,000 unit) Capsule 50 mcg PO DAILY alprazolam [Xanax] 1 mg Tablet 1 mg PO BID PRN (Reason: Anxiety) hydrochlorothiazide 12.5 mg capsule 12.5 mg PO DAILY 30 Days Qty: 30 0RF cyclobenzaprine 10 mg tablet 10 mg PO TID PRN (Reason: muscle spasm) Qty: 20 0RF naproxen 375 mg tablet 375 mg PO BID Qty: 14 0RF Robitussin Cough-Chest Arnaldo DM 10-200 mg capsule 1 tab-cap PO ONCE PRN (Reason: cough) Qty: 14 0RF fluticasone propionate [Flonase Allergy Relief] 50 mcg/actuation spray,suspension 1 spray intranasal DAILY Qty: 16 0RF Rx Instructions: administer into each nostril doxycycline hyclate 100 mg tablet 100 mg PO BID Qty: 20 0RF Follow-up/Referrals: Steven Crouch MD [Primary Care Provider, Family Practice] Time of Disposition: 19:23
--- OUTSIDE RECORDS SUMMARY | 2024-12-30 15:35 | XMS_ITS | Clinical Summary ---
Author Organization [facility] Address [address] [place] [address] Care Team Providers Care Professor Of Oceanography Name Role Phone Steven Crouch MD Primary Care Provider [phone] Source Comments [facility],non-owned Affiliates and Associated Physician Practices is amultiple site organization consisting of ambulatory clinics and hospital sitesin [place], [place], [place] and [place]. This disclosure is being madepursuant to the Care Everywhere program and may not contain all information available regarding this patient. Last updated 17.[facility] Allergies Active Allergy Reactions Criticality Noted Date [...] tablet 3 03/06/19 21 Active HYDROcodone-ac etaminophen ([place]) 5-325 MG tablet Take 1 (one) tablet [...] on file Legal Sex Female 6:04 AM MOTORIZED SQUAD CAPTAIN Gender Identity Not on file Sexual Orientation Not on file Last Filed Vital Signs Vital Sign Reading Time Taken Comments Blood Pressure 123/71 03/06/2020 2:58 PM MOTORIZED SQUAD CAPTAIN Pulse 78 03/06/2020 2:58 PM MOTORIZED SQUAD CAPTAIN Temperature 36.2 C (97.2 F) 03/06/2020 2:58 PM MOTORIZED SQUAD CAPTAIN Respiratory Rate - - Oxygen Saturation 100% 03/06/2020 2:58 PM MOTORIZED SQUAD CAPTAIN Inhaled Oxygen Concentration - - Weight 113.8 kg (250 lb 12.8 oz) 03/06/2020 2:58 PM MOTORIZED SQUAD CAPTAIN Height 167.6 cm (5' 6) 03/06/2020 2:58 PM MOTORIZED SQUAD CAPTAIN Body Mass Index 40.48 03/06/2020 2:58 PM MOTORIZED SQUAD CAPTAIN Plan of Treatment Health Maintenance Due Date [...] age to complete this topic Insurance [facility] Address: [facility] [id number] [place] [address] CIGNA [facility] Address[facility] [id number] [place] [address] CIGNA CIGNA CIGNA [facility] Address: [facility] [id number] [place] [address] CIGNA CIGNA CIGNA CIGNA CIGNA CIGNA CIGNA CIGNA Member Subscriber Plan / Payer (Ef fective 2021-) Name:Tommy Jones Relation to Subscriber:Self Name:TOMMY JONES Payer ID:[id number] (NAIC) Type:Commercial Address: [place] [id number] CIGNA Member Subscriber Plan / Payer (Ef fective 2021-Present) Name:Tommy Jones Relation to Subscriber:Self Name:TOMMY OJNES Payer ID:[id number] (NAIC) Type:Commercial Address: [place] [id number] CIGNA Member Subscriber Plan / Payer (Ef fective 2021-Present) Name:Tommy Jones Relation to Subscriber:Self Name:TOMMY JONES Payer ID:[id number] (NAIC) Type:Commercial Address: [place] [id number] CIGNA Member Subscriber Plan / Payer (Ef fective 2021-Present) Name:Tommy Jones Relation to Subscriber:Self Name:TOMMY JONES Payer ID:[id number] (NAIC) Type:Commercial Address: [place] [id number] CIGNA Member Subscriber Plan / Payer (Ef fective 2021-Present) Name:Tommy Jones Relation to Subscriber:Self Name:TOMMY JONES Payer ID:[id number] (NAIC) Type:Commercial Address: [place] [id number] CIGNA CIGNA CIGNA CIGNA CIGNA CIGNA Care Teams Professor Of Oceanography Relationship Specialty Start Date End Date Steven Crouch MD [address] [place] [id number] PCP - General 12/25/17
--- OUTSIDE RECORDS SUMMARY | 2024-12-30 15:36 | XMS_ITS | Encounter Summary ---
Author Organization [employer] Address 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 Gender Identity Not on file Sexual Orientation [...] ORDERABLES Final R esult Performing Organization Address [facility] Phone Number INTERFACE SYSTEM Refer to [...] ORDERABLES Fi nal Result Performing Organization Address [facility] Phone Number INTERFACE SYSTEM Refer to [...] ORDERABLES Fi nal Result Performing Organization Address [facility] Co de Phone Number INTERFACE SYSTEM Refer to clinic/hospital department * URIC ACID (08/13/2004 4:45 PM CDT) URIC ACID 5.7 2.3 - 6.6 mg/dL INTERFACE SYSTEM 08/13/2004 4:45 PM CDT Luz Marina Camp MD CHEMISTRY ORDERABLES Fin al Result Performing Organization Address [facility] Phone Number INTERFACE SYSTEM Refer to clinic/hospital department * LACTATE DEHYDROGENASE (08/13/2004 4:45 PM CDT) LD (LACTATE DEHYDROGENASE) 165 135 - 214 U/L INTERFACE SYSTEM 08/13/2004 4:45 PM CDT Luz Marina Camp MD CHEMISTRY ORDERABLES Fin al Result Performing Organization Address [facility] Phone Number INTERFACE SYSTEM Refer to clinic/hospital department * AST (08/13/2004 4:45 PM CDT) AST 15 12 - 32 U/L INTERFAC E SYSTEM 08/13/2004 4:45 PM CDT Luz Marina Camp MD CHEMISTRY ORDERABLES Fin al Result Performing Organization Address [facility] Phone Number INTERFACE [...] COVID-19 02/01/2021 02/06/2021 02/06/2021 11:3 2 AM OPERATIONAL METEOROLOGIST documented as of this encounter Care Teams Stacker And Sorter Operator Relationship Specialty Start Date End Date Nancy Lewis MD [address] [place] [address] PCP - General Family Practice 09/06/21 documented as of this encounter
--- OUTSIDE RECORDS SUMMARY | 2024-12-30 15:36 | XMS_ITS | Encounter Summary ---
Author Organization [employer] Address [address] [place] [address] Care Team Providers Care Funeral Driver Name Role Phone Nancy Lewis MD Primary Care Provider [phone] Encounter Details Date Type Department Care Team [...] on file Legal Sex Female 3:01 AM ONLINE BANKING SPECIALIST Gender Identity Not on file Sexual Orientation Not on file documented as of this encounter Plan of Treatment Not on file documented as of this encounter Visit Diagnoses Diagnosis Abdominal pain, unspecified site- Primary documented in this encounter Additional Health Concerns Infection Onset Date Last Indicated Resolved Time R/O COVID-19 02/01/2021 02/06/2021 02/06/2021 11:3 2 AM ONLINE BANKING SPECIALIST documented as of this encounter Care Teams Funeral Driver Relationship Specialty Start Date End Date Nancy Lewis MD [address] [place] [address] PCP - General Family Practice 09/06/21 documented as of this encounter
--- OUTSIDE RECORDS SUMMARY | 2024-12-30 15:36 | XMS_ITS | Encounter Summary ---
Author Organization [facility] Address [address] [place] [address] Care Team Providers Care Account Resolution Expert Name Role Phone Nancy Lewis MD Primary Care Provider [phone] Encounter Details Date Type Department Care Team (Late st Contact Info) Description 07/31/2008 Emergency [facility] EMERGENCY RO[facility] [place], Authorized P NO ADDRESS ON FILE Ishmael Long MD [address] [place] [address] [place] [address] Social History Tobacco Use Types Packs/Day Years Used Date Smoking Tobacco: Never Assessed Comments Unknown Sex and Gender Information Value Date Recorded Sex Assigned at Not on file Legal Sex Female 3:01 AM CERTIFIED NURSE OPERATING ROOM Gender Identity Not on file Sexual Orientation Not on file documented as of this encounter Plan of Treatment Not on file documented as of this encounter Visit Diagnoses Not on filedocumented in this encounter Additional Health Concerns Infection Onset Date Last Indicated Resolved Time R/O COVID-19 02/01/2021 02/06/2021 02/06/2021 11:3 2 AM CERTIFIED NURSE OPERATING ROOM documented as of this encounter Care Teams Account Resolution Expert Relationship Specialty Start Date End Date Nancy Lewis MD [address] [place] [phone] PCP - General Family Practice 09/06/21 documented as of this encounter
--- OUTSIDE RECORDS SUMMARY | 2024-12-30 15:36 | XMS_ITS | Encounter Summary ---
Author Organization [employer] Address [address] [place] [address] Care Team Providers Care Development Geologist Name Role Phone Nancy Lewis MD Primary Care Provider [phone] Encounter Details Date Type Department Care Team (Latest Contact Info) Description 10/08/2004 Inpatient Historical HIS PATIENT IN A BED Luz Mairna Camp MD NO ADDRESS ON FILE POST TERM PREG-DELIVERED,40-42 WKS (Primary Dx) Social History Tobacco Use Types Packs/Day Years Used Date Smoking Tobacco: Never Assessed Comments Unknown Sex and Gender Information Value Date Recorded Sex Assigned at Not on file Legal Sex Female 3:01 AM TAILINGS MAN Gender Identity Not on file Sexual Orientation [...] ORDERABLES Fi nal Result Performing Organization Address [facility] Phone Number INTERFACE SYSTEM Refer to [...] ORDERABLES Fi nal Result Performing Organization Address [facility] Phone Number INTERFACE SYSTEM Refer to [...] COVID-19 02/01/2021 02/06/2021 02/06/2021 11:3 2 AM TAILINGS MAN documented as of this encounter Care Teams Development Geologist Relationship Specialty Start Date End Date Nancy Lewis MD [address] [place] [phone] PCP - General Family Practice 09/06/21 documented as of this encounter
--- OUTSIDE RECORDS SUMMARY | 2024-12-30 15:36 | XMS_ITS | Encounter Summary ---
Author Organization [employer] Address [address] [place] [address] Care Team Providers Care Music Professionals Name Role Phone Nancy Lewis MD Primary Care Provider [phone] Encounter Details Date Type Department Care Team (Latest Contact Info) Description 10/09/2006 Outpatient Historical HIS OB PREADMIT Hermelinda Parisi MD [address] [place] [address] [address] [place] [phone] Other Current Maternal Conditions Classifiable Elsewhere, Antepartum (Primary Dx) Social History Tobacco Use Types Packs/Day Years Used Date Smoking Tobacco: Never Assessed Comments Unknown Sex and Gender Information Value Date Recorded Sex Assigned at Not on file Legal Sex Female 3:01 AM COMPLIANCE PROGRAM MANAGER Gender Identity Not on file Sexual Orientation Not on file documented as of this encounter Plan of Treatment Not on file documented as of this encounter Visit Diagnoses Diagnosis Other current maternal conditions classifiable elsewhere, antepartum- Primary documented in this encounter Additional Health Concerns Infection Onset Date Last Indicated Resolved Time R/O COVID-19 02/01/2021 02/06/2021 02/06/2021 11:3 2 AM COMPLIANCE PROGRAM MANAGER documented as of this encounter Care Teams Music Professionals Relationship Specialty Start Date End Date Nancy Lewis MD [address] [place] [address] PCP - General Family Practice 09/06/21 documented as of this encounter
--- OUTSIDE RECORDS SUMMARY | 2024-12-30 15:36 | XMS_ITS | Patient Health Record ---
Author Organization [facility] [employer] Address [address] [facility] [address] [place] [address] Care Team Providers Care Program Writer Name Role Phone Manisha Joyner [phone] Allergies Allergen (clinical drug ingredient) Drug/Non Drug Allergy documented on EMR Reaction Allergy Type Onset Date Status tramadol Tramadol Unknown Drug Allergy Active Results Component Value Reference Range Notes UDT Reviewed date:08/23/2024 12:44:40 PM Interpretation: Performing [...] n 0 - 300 ng/ml UDT Reviewed date:09/22/2024 08:51:56 PM Interpretation: Performing [...] Aerosol Powder Breath Activated Inhalation *Reorder from [employer] for eRx and Interaction Alerts* Active Triamcinolone [...] to alprazolam 11/09/2024 Active Ergocalciferol 1.25 MG (39012 UT) Capsule Oral Not-Takin g Losartan Potassium [...] drink alcohol? No Section Notes: Lives in [place] with 3 rd of 2 yrs, youngest son 16 y/o. and taking care of niece's 8 month old. has 4 other children that are grown. [place] up in [place], 3 siblings. 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 Lives in [place] with 3 rd of 2 yrs, youngest son 16 y/o. and taking care of niece's 8 month old. has 4 other children that are grown. [place] up in [place], 3 siblings. 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 Lives in [place] with 3 rd of 2 yrs, youngest son 16 y/o. and taking care of niece's 8 month old. has 4 other children that are grown. [place] up in [place], 3 siblings. 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 Lives in [place] with 3 rd of 2 yrs, youngest son 16 y/o. and taking care of niece's 8 month old. has 4 other children that are grown. G[place] up in [place], 3 siblings. 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 Lives in [place] with 3 rd of 2 yrs, youngest son 16 y/o. and taking care of niece's 8 month old. has 4 other children that are grown. G[place] up in [place], 3 siblings. 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 Lives in [place] with 3 rd of 2 yrs, youngest son 16 y/o. and taking care of niece's 8 month old. has 4 other children that are grown. G[place] up in [place], 3 siblings. 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 Works as [employer] x 1 yr, prior to that worked at [employer] x 2 yrs. Problems Problem Type SNOMED Code ICD Code Onset Dates Problem Status W/U Status Risk Notes Problem Generalized anxiety disorder (73592837) Generalized anxiety disorder (F41.1) Active confirmed Problem Insomnia disorder related to another mental disorder (71999403) Insomnia related to another mental disorder (F51.05) Active confirmed Problem Panic disorder (553777447) Panic attacks (F41.0) Active confirmed Problem Tobacco use (417695232) Nicotine use (Z72.0) Active confirmed Problem Stress due to family tension (592890938780725 ) Stress due to family tension (Z63.8) Active confirmed Vital Signs Heart Rate 65 /min 09/20/2024 Blood pressure diastolic 85 mm Hg 09/20/2024 Weight-kg 123.38 kg 09/20/2024 Blood pressure systolic 139 mm Hg 09/20/2024 Weight 272 lbs 09/20/2024 Encounters Encounter Location Date Provider Diagnosis [facility] [employer] [address] [address] 02/04/[address] [facility] [employer] [address] [address] 04/14/2024 Manisha Joyner Generalized anxiety disorder F41.1 ; Panic attacks F41.0 ; Insomnia related to another mental disorder F51.05 and Encounter for screening for depression Z13.31 [facility] [employer] [address] [address] 06/14/2024 Manisha Joyner Insomnia related to another mental disorder F51.05 ; Panic attacks F41.0 ; Encounter for screening for depression Z13.31 ; Generalized anxiety disorder F41.1 and Encounter for screening for cardiovascular disorders Z13.6 [facility], [facility] [address] [place] [address] [place] [address] 07/12/2024 Manisha Hagopian Generalized anxiety disorder F41.1 ; Panic attacks F41.0 ; Insomnia related to another mental disorder F51.05 ; Nicotine use Z72.0 ; Negative depression screening Z13.31 and Encounter for screening for cardiovascular disorders Z13.6 [facility], [facility] [address] [place] [address] [place] [address] 08/23/2024 Manisha Hagopian Generalized anxiety disorder F41.1 ; Panic attacks F41.0 ; Insomnia related to another mental disorder F51.05 ; Nicotine use Z72.0 and Encounter for screening for depression Z13.31 [facility], [facility] [address] [place] [address] [place] [address] 09/20/2024 Manisha Arianaopian Generalized anxiety disorder F41.1 ; Panic attacks F41.0 ; Insomnia related to another mental disorder F51.05 and Stress due to family tension Z63.8 [facility] [address] [place] [address] 01/12/[address]opian Panic attacks F41.0 [facility], [facility] [address] [place] [address] 01/12/2024 Manisha Joyner [facility], [facility] [address] [place] [address] 01/12/2024 Manisha Joyner [facility], [facility] [address] [place] [address] 02/03/2024 Manisha Joyner [facility], [facility] [address] [place] [address] 04/02/[address] Panic attacks F41.0 [facility], [facility] [address] [place] [address] 04/14/2024 Manisha Hagopian Generalized anxiety disorder F41.1 and Panic attacks F41.0 [facility], [facility] [address] [place] [address] 05/24/2024 Manisha Joyner Generalized anxiety disorder F41.1 [facility], [facility] [address] [place] [address] 05/24/2024 Manisha Joyner Panic attacks F41.0 [facility], [facility] [address] [place] [address] 05/25/2024 Manisha Joyner Generalized anxiety disorder F41.1 [facility], [facility] [address] [place] [address] 05/25/2024 Manisha Joyner Panic attacks F41.0 [facility], [facility] [address] [place] [address] 05/25/2024 Manisha Joyner [facility], [facility] [address] [place] [address] 05/25/2024 Manisha Joyner [facility], [facility] [address] [place] [address] 06/15/2024 Manisha Joyner [facility], [facility] [address] [address] 11/08/2024 Manisha Joyner [facility], [facility] [address] [place] [address] 11/08/2024 Manisha Joyner [facility], [facility] [address] [facility] [address] [place] [address] 11/09/2024 Manisha Joyner Panic attacks F41.0 [facility], [facility] [address] [facility] [address] [place] [address] 11/10/2024 Manisha Joyner Assessments Encounter Date Diagnosis (ICD Code) Assessment Notes Treatment Notes Treatment Clinical Notes Section Notes 04/02/2024 Panic attacks (ICD-10 - F41.0) 04/14/2024 Generalized anxiety disorder (ICD-10 - F41.1) [...] progress and adjust treatment plan as needed 05/24/2024 Generalized anxiety disorder (ICD-10 - F41.1) 05/24/2024 Panic attacks (ICD-10 - F41.0) 05/25/2024 Generalized anxiety disorder (ICD-10 - F41.1) 05/25/2024 Panic attacks (ICD-10 - F41.0) 07/12/2024 Generalized anxiety disorder (ICD-10 - F41.1) 04/14/2024 Generalized anxiety disorder (ICD-10 - F41.1) 07/12/2024 Panic attacks (ICD-10 - F41.0) 08/23/2024 Generalized anxiety disorder (ICD-10 - F41.1) 09/20/2024 Generalized anxiety disorder (ICD-10 - F41.1) 09/20/2024 Panic attacks (ICD-10 - F41.0) 11/09/2024 Panic attacks (ICD-10 - F41.0) 06/14/2024 Insomnia related to another mental disorder (ICD-10 - F51.05) 01/12/2024 Panic attacks (ICD-10 - F41.0) 06/14/2024 Panic attacks (ICD-10 - F41.0) 09/20/2024 Insomnia related to another mental disorder (ICD-10 - F51.05) 08/23/2024 Panic attacks (ICD-10 - F41.0) 04/14/2024 Panic attacks (ICD-10 - F41.0) 04/14/2024 Panic [...] progress and adjust treatment plan as needed 07/12/2024 Insomnia related to another mental disorder (ICD-10 - F51.05) 04/14/2024 Insomnia related to another mental disorder [...] progress and adjust treatment plan as needed 07/12/2024 Nicotine use (ICD-10 - Z72.0) 08/23/2024 Insomnia related to another mental disorder (ICD-10 - F51.05) 06/14/2024 Encounter for screening for depression (ICD-10 - Z13.31) 06/14/2024 Generalized anxiety disorder (ICD-10 - F41.1) 09/20/2024 Stress due to family tension (ICD-10 - Z63.8) 06/14/2024 Encounter for screening for cardiovascular disorders [...] progress and adjust treatment plan as needed 07/12/2024 Encounter for screening for cardiovascular disorders (ICD-10 - Z13.6) 08/23/2024 Encounter for screening for depression (ICD-10 - Z13.31) 06/14/2024 Other [facility], female patient with history of anxiety, presenting [...] Insured Coverage Start Date Coverage End Date [facility] [address] [place] [address] [id number] TOMMY JONES Self - patient is the insured Medical (General) History Medical History History ICD Code Past Psychiatric History: Anxiety Disord er,Panic Disorder,PTSD vitamin D deficiency Surgical History Surgery Date(Month/Year) hysterectomy two years ago
--- OUTSIDE RECORDS SUMMARY | 2024-12-30 15:36 | XMS_ITS | Encounter Summary ---
Author Organization [employer] Address [address] [place] [address] Care Team Providers Care Client Experience Specialist Name Role Phone Nancy Lewis MD Primary Care Provider [phone] Encounter Details Date Type Department Care Team (Late st Contact Info) Description 09/12/2006 Emergency [facility] EMERGENCY RO[facility] Jet Flores MD [address] [place] [address] Er, Authorized P NO ADDRESS ON FILE Urinary Tract Infection, Site not Specified (Primary Dx) Social History Tobacco Use Types Packs/Day Years Used Date Smoking Tobacco: Never Assessed Comments Unknown Sex and Gender Information Value Date Recorded Sex Assigned at Not on file Legal Sex Female 3:01 AM FENDER FINISHER Gender Identity Not on file Sexual Orientation Not on file documented as of this encounter Plan of Treatment Not on file documented as of this encounter Visit Diagnoses Diagnosis Urinary tract infection, site not specified- Primary documented in this encounter Additional Health Concerns Infection Onset Date Last Indicated Resolved Time R/O COVID-19 02/01/2021 02/06/2021 02/06/2021 11:3 2 AM FENDER FINISHER documented as of this encounter Care Teams Client Experience Specialist Relationship Specialty Start Date End Date Nancy Lewis MD [address] [place] [address] PCP - General Family Practice 09/06/21 documented as of this encounter
--- OUTSIDE RECORDS SUMMARY | 2024-12-30 15:36 | XMS_ITS | Clinical Summary ---
Author Organization [facility] Address [address] [place] [address] Phone Care Team Providers Care Revenue Cycle Consultant Name Role Phone Nancy Lewis MD Primary Care Provider [phone] Allergies Active Allergy Reactions Criticality Noted Date [...] on file Legal Sex Female 3:01 AM EVS MANAGER Gender Identity Not on file Sexual [...] OPEN ACCESS ALLEGIANCE OPEN ACCESS Care Teams Revenue Cycle Consultant Relationship Specialty Start Date End Date Nancy Lewis MD [address] [place] [address] PCP - General Family Practice 09/06/21
== END 2024-12-29 19:26 | disposition home or self-care (01) ==
PROVIDERS: Emergency Provider Nurse Practitioner; PCP Emergency Medicine
DX: J06.9 Acute upper respiratory infection, unspecified (principal); F17.290 Nicotine dependence, other tobacco product, uncomplicated; I10 Essential (primary) hypertension; F41.9 Anxiety disorder, unspecified; F32.A Depression, unspecified; E66.9 Obesity, unspecified; Z68.39 Body mass index [BMI] 39.0-39.9, adult
CPT/HCPCS: 87081; 87880; 99213; G0463

== ENCOUNTER 2024-12-31 01:57 | Emergency (ER) | payer OTHER, SELFPAY ==
--- OUTSIDE RECORDS SUMMARY | 2024-12-31 01:59 | XMS_ITS | Encounter Summary ---
Author Organization [employer] Address [address] [place] [address] Care Team Providers Care Hard Rock Miner Name Role Phone Nancy Lewis MD Primary Care Provider [phone] Encounter Details Date Type Department Care Team [...] on file Legal Sex Female 3:01 AM EYE DROPPER ASSEMBLER Gender Identity Not on file Sexual Orientation [...] ORDERABLES Fi nal Result Performing Organization Address [facility] Phone Number INTERFACE SYSTEM Refer [...] ORDERABLES Fi nal Result Performing Organization Address [facility] Phone Number INTERFACE SYSTEM Refer [...] COVID-19 02/01/2021 02/06/2021 02/06/2021 11:3 2 AM EYE DROPPER ASSEMBLER documented as of this encounter Care Teams Hard Rock Miner Relationship Specialty Start Date End Date Nancy Lewis MD [address] [place] [address] PCP - General Family Practice 09/06/21 documented as of this encounter
--- OUTSIDE RECORDS SUMMARY | 2024-12-31 01:59 | XMS_ITS | Encounter Summary ---
Author Organization [employer] Address [address] [place] [address] Care Team Providers Care Matrix Bath Attendant Name Role Phone Nancy Lewis MD Primary Care Provider [phone] Encounter Details Date Type Department Care Team (Latest Contact Info) Description 10/09/2006 Outpatient Historical HIS OB PREADMIT Hermelinda Parisi MD [address] [place] [address] [address] [place] [address] Other Current Maternal Conditions Classifiable Elsewhere, Antepartum (Primary Dx) Social History Tobacco Use Types Packs/Day Years Used Date Smoking Tobacco: Never Assessed Comments Unknown Sex and Gender Information Value Date Recorded Sex Assigned at Not on file Legal Sex Female 3:01 AM PINEAPPLE PLANTATION MANAGER Gender Identity Not on file Sexual Orientation Not on file documented as of this encounter Plan of Treatment Not on file documented as of this encounter Visit Diagnoses Diagnosis Other current maternal conditions classifiable elsewhere, antepartum- Primary documented in this encounter Additional Health Concerns Infection Onset Date Last Indicated Resolved Time R/O COVID-19 02/01/2021 02/06/2021 02/06/2021 11:3 2 AM PINEAPPLE PLANTATION MANAGER documented as of this encounter Care Teams Matrix Bath Attendant Relationship Specialty Start Date End Date Nancy Lewis MD [address] [place] [address] PCP - General Family Practice 09/06/21 documented as of this encounter
--- OUTSIDE RECORDS SUMMARY | 2024-12-31 01:59 | XMS_ITS | Encounter Summary ---
Author Organization [facility] Address [address] [place] [address] Care Team Providers Care Licensed Psychologist Director Name Role Phone Nancy Lewis MD Primary Care Provider [phone] Encounter Details Date Type Department Care Team (Late st Contact Info) Description 09/12/2006 Emergency [facility] EMERGENCY RO[facility] Jet Flores MD [address] [place] [address] Er, Authorized P NO ADDRESS ON FILE Urinary Tract Infection, Site not Specified (Primary Dx) Social History Tobacco Use Types Packs/Day Years Used Date Smoking Tobacco: Never Assessed Comments Unknown Sex and Gender Information Value Date Recorded Sex Assigned at Not on file Legal Sex Female 3:01 AM SEARCH LEAD Gender Identity Not on file Sexual Orientation Not on file documented as of this encounter Plan of Treatment Not on file documented as of this encounter Visit Diagnoses Diagnosis Urinary tract infection, site not specified- Primary documented in this encounter Additional Health Concerns Infection Onset Date Last Indicated Resolved Time R/O COVID-19 02/01/2021 02/06/2021 02/06/2021 11:3 2 AM SEARCH LEAD documented as of this encounter Care Teams Licensed Psychologist Director Relationship Specialty Start Date End Date Nancy Lewis MD [address] [place] [address] PCP - General Family Practice 09/06/21 documented as of this encounter
--- OUTSIDE RECORDS SUMMARY | 2024-12-31 01:59 | XMS_ITS | Clinical Summary ---
Author Organization [facility] Address [address] [place] [address] Phone Care Team Providers Care Cripple Cutter Name Role Phone Nancy Lewis MD Primary Care Provider [phone] Allergies Active Allergy Reactions Criticality Noted Date [...] on file Legal Sex Female 3:01 AM POWDER LOADER Gender Identity Not on file Sexual Orientation [...] OPEN ACCESS ALLEGIANCE OPEN ACCESS Care Teams Cripple Cutter Relationship Specialty Start Date End Date Nancy Lewis MD [address] [place] [address] PCP - General Family Practice 09/06/21
--- OUTSIDE RECORDS SUMMARY | 2024-12-31 01:59 | XMS_ITS | Encounter Summary ---
Author Organization [employer] Address [address] [place] [address] Care Team Providers Care Pipeline Executive Name Role Phone Nancy Lewis MD Primary Care Provider [phone] Encounter Details Date Type Department Care Team [...] on file Legal Sex Female 3:01 AM GAS MANAGER Gender Identity Not on file Sexual Orientation Not on file documented as of this encounter Plan of Treatment Not on file documented as of this encounter Visit Diagnoses Diagnosis Abdominal pain, unspecified site- Primary documented in this encounter Additional Health Concerns Infection Onset Date Last Indicated Resolved Time R/O COVID-19 02/01/2021 02/06/2021 02/06/2021 11:3 2 AM GAS MANAGER documented as of this encounter Care Teams Pipeline Executive Relationship Specialty Start Date End Date Nancy Lewis MD [address] [place] [address] PCP - General Family Practice 09/06/21 documented as of this encounter
--- OUTSIDE RECORDS SUMMARY | 2024-12-31 01:59 | XMS_ITS | Encounter Summary ---
Author Organization [facility] Address [address] [place] [address] Care Team Providers Care Jockey Valet Name Role Phone Nancy Lewis MD Primary Care Provider [phone] Encounter Details Date Type Department Care Team (Late st Contact Info) Description 07/31/2008 Emergency [facility] EMERGENCY RO[facility] Er, Authorized P NO ADDRESS ON FILE Ishmael Long MD [address] [place] [address] [place] [address] Social History Tobacco Use Types Packs/Day Years Used Date Smoking Tobacco: Never Assessed Comments Unknown Sex and Gender Information Value Date Recorded Sex Assigned at Not on file Legal Sex Female 3:01 AM SPINDLE PLUMBER Gender Identity Not on file Sexual Orientation Not on file documented as of this encounter Plan of Treatment Not on file documented as of this encounter Visit Diagnoses Not on filedocumented in this encounter Additional Health Concerns Infection Onset Date Last Indicated Resolved Time R/O COVID-19 02/01/2021 02/06/2021 02/06/2021 11:3 2 AM SPINDLE PLUMBER documented as of this encounter Care Teams Jockey Valet Relationship Specialty Start Date End Date Nancy Leiws MD [address] [place] [phone] PCP - General Family Practice 09/06/21 documented as of this encounter
--- OUTSIDE RECORDS SUMMARY | 2024-12-31 01:59 | XMS_ITS | Encounter Summary ---
Author Organization [employer] Address [address] [place] [address] Care Team Providers Care Wrapper Stripper Name Role Phone Nancy Lewis MD Primary Care Provider [phone] Encounter Details Date Type Department Care Team [...] on file Legal Sex Female 3:01 AM STATE WILDLIFE OFFICER Gender Identity Not on file Sexual Orientation [...] analytes. 08/13/2004 6:22 PM CDT Luz Marina Cmap MD URINE ORDERABLES Final R esult Performing Organization Address [facility] Phone Number INTERFACE SYSTEM Refer to clinic/hospital [...] ORDERABLES Fi nal Result Performing Organization Address [facility] Phone Number INTERFACE SYSTEM Refer to [...] ORDERABLES Fi nal Result Performing Organization Address [facility] Co de Phone Number INTERFACE SYSTEM Refer to clinic/hospital department * URIC ACID (08/13/2004 4:45 PM CDT) URIC ACID 5.7 2.3 - 6.6 mg/dL INTERFACE SYSTEM 08/13/2004 4:45 PM CDT Luz Marina Camp MD CHEMISTRY ORDERABLES Fin al Result Performing Organization Address [facility] Phone Number INTERFACE SYSTEM Refer to clinic/hospital department * LACTATE DEHYDROGENASE (08/13/2004 4:45 PM CDT) LD (LACTATE DEHYDROGENASE) 165 135 - 214 U/L INTERFACE SYSTEM 08/13/2004 4:45 PM CDT Luz Marina Camp MD CHEMISTRY ORDERABLES Fin al Result Performing Organization Address [facility] Phone Number INTERFACE SYSTEM Refer to clinic/hospital department * AST (08/13/2004 4:45 PM CDT) AST 15 12 - 32 U/L INTERFAC E SYSTEM 08/13/2004 4:45 PM CDT Luz Marina Camp MD CHEMISTRY ORDERABLES Fin al Result Performing Organization Address [facility] de Phone Number INTERFACE SYSTEM Refer to [...] COVID-19 02/01/2021 02/06/2021 02/06/2021 11:3 2 AM STATE WILDLIFE OFFICER documented as of this encounter Care Teams Wrapper Stripper Relationship Specialty Start Date End Date Nancy Lewis MD [address] [place] [address] PCP - General Family Practice 09/06/21 documented as of this encounter
--- OUTSIDE RECORDS SUMMARY | 2024-12-31 01:59 | XMS_ITS | Patient Health Record ---
Author Organization [facility] Address [address] [facility] [address] [place] [address] Care Team Providers Care Wooling Machine Operator Name Role Phone Manisha Joyner [phone] Allergies Allergen (clinical drug ingredient) Drug/Non Drug [...] Aerosol Powder Breath Activated Inhalation *Reorder from [employer] for eRx and Interaction Alerts* Active Triamcinolone [...] to alprazolam 11/09/2024 Active Ergocalciferol 1.25 MG (56446 UT) Capsule Oral Not-Takin g Losartan Potassium [...] drink alcohol? No Section Notes: Lives in [place] with 3 rd of 2 yrs, youngest son 16 y/o. and taking care of niece's 8 month old. has 4 other children that are grown. Grew up in [place], 3 siblings. 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 Lives in [place] with 3 rd of 2 yrs, youngest son 16 y/o. and taking care of niece's 8 month old. has 4 other children that are grown. Grew up in [place], 3 siblings. 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 Lives in [place] with 3 rd of 2 yrs, youngest son 16 y/o. and taking care of niece's 8 month old. has 4 other children that are grown. Grew up in [place], 3 siblings. 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 Lives in [place] with 3 rd of 2 yrs, youngest son 16 y/o. and taking care of niece's 8 month old. has 4 other children that are grown. Grew up in [place], 3 siblings. 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 Lives in [place] with 3 rd of 2 yrs, youngest son 16 y/o. and taking care of niece's 8 month old. has 4 other children that are grown. Grew up in [place], 3 siblings. 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 Lives in [place] with 3 rd of 2 yrs, youngest son 16 y/o. and taking care of niece's 8 month old. has 4 other children that are grown. Grew up in [place], 3 siblings. 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 Works as [employer] x 1 yr, prior to that worked at [employer] x 2 yrs. Problems Problem Type SNOMED Code ICD Code Onset Dates Problem Status W/U Status Risk Notes Problem Generalized anxiety disorder (58266443) Generalized anxiety disorder (F41.1) Active confirmed Problem Insomnia disorder related to another mental disorder (25621937) Insomnia related to another mental disorder (F51.05) Active confirmed Problem Panic disorder (536275595) Panic attacks (F41.0) Active confirmed Problem Tobacco use (646532110) Nicotine use (Z72.0) Active confirmed Problem Stress due to family tension (628564555310449 ) Stress due to family tension (Z63.8) Active confirmed Vital Signs Heart Rate 65 /min 09/20/2024 Blood pressure diastolic 85 mm Hg 09/20/2024 Weight-kg 123.38 kg 09/20/2024 Blood pressure systolic 139 mm Hg 09/20/2024 Weight 272 lbs 09/20/2024 Encounters Encounter Location Date Provider Diagnosis [facility] [employer] [address] [address] 02/04/2024 Manisha Joyner [facility] [employer] [address] [address] 04/14/2024 Manisha Joyner Generalized anxiety disorder F41.1 ; Panic attacks F41.0 ; Insomnia related to another mental disorder F51.05 and Encounter for screening for depression Z13.31 [facility] [employer] [address] [address] 06/14/2024 Manisha Joyner Insomnia related to another mental disorder F51.05 ; Panic attacks F41.0 ; Encounter for screening for depression Z13.31 ; Generalized anxiety disorder F41.1 and Encounter for screening for cardiovascular disorders Z13.6 [facility] [address] [place] [address] 07/12/2024 Manisha Hagopian Generalized anxiety disorder F41.1 ; Panic attacks F41.0 ; Insomnia related to another mental disorder F51.05 ; Nicotine use Z72.0 ; Negative depression screening Z13.31 and Encounter for screening for cardiovascular disorders Z13.6 [facility] [address] [place] [address] 08/23/2024 Manisha Hagopian Generalized anxiety disorder F41.1 ; Panic attacks F41.0 ; Insomnia related to another mental disorder F51.05 ; Nicotine use Z72.0 and Encounter for screening for depression Z13.31 [facility] [address] [place] [address] 09/20/2024 Manisha Arianaopian Generalized anxiety disorder F41.1 ; Panic attacks F41.0 ; Insomnia related to another mental disorder F51.05 and Stress due to family tension Z63.8 [facility] [id number] [place] [address] 01/12/2024 Manisha Laneopian Panic attacks F41.0 [facility] [address] [place] [address] 01/12/[address] [facility] [address] [place] [address] 01/12/[address] [facility] [address] [place] [address] 02/03/[address] [facility] [address] [place] [address] 04/02/[address] Panic attacks F41.0 [facility] [address] [place] [address] 04/14/2024 Manisha Hagopian Generalized anxiety disorder F41.1 and Panic attacks F41.0 [facility] [address] [place] [address] 05/24/2024 Manisha Joyner Generalized anxiety disorder F41.1 [facility] [address] [place] [address] 05/24/2024 Manisha Joyner Panic attacks F41.0 [facility] [address] [place] [address] 05/25/2024 Manisha Joyner Generalized anxiety disorder F41.1 [facility] [address] [place] [address] 05/25/2024 Manisha Joyner Panic attacks F41.0 [facility] [address] [place] [address] 05/25/[address] [facility] [address] [place] [address] 05/25/[address] [facility] [address] [place] [address] 06/15/[address] [facility] [address] [place] [address] 11/08/[address] [facility] [address] [place] [address] 11/08/[address] [facility] [address] [place] [address] 11/09/2024 Manisha Joyner Panic attacks F41.0 [facility] [address] [facility] [address] [place] [address] 11/10/2024 Manisha Joyner Assessments Encounter Date Diagnosis (ICD Code) Assessment Notes Treatment Notes Treatment Clinical Notes Section Notes 09/20/2024 Panic attacks (ICD-10 - F41.0) 05/25/2024 Panic attacks (ICD-10 - F41.0) 05/25/2024 Generalized anxiety disorder (ICD-10 - F41.1) 05/24/2024 Panic attacks (ICD-10 - F41.0) 05/24/2024 Generalized anxiety disorder (ICD-10 - F41.1) 09/20/2024 Generalized anxiety disorder (ICD-10 - F41.1) 04/14/2024 [...] F41.1) 07/12/2024 Panic attacks (ICD-10 - F41.0) 06/14/2024 Insomnia related to another mental disorder (ICD-10 - F51.05) 04/14/2024 Generalized anxiety disorder (ICD-10 - F41.1) 01/12/2024 Panic attacks (ICD-10 - F41.0) 04/02/2024 Panic attacks (ICD-10 - F41.0) 04/14/2024 Panic attacks (ICD-10 - F41.0) 06/14/2024 Panic attacks (ICD-10 - F41.0) 07/12/2024 Insomnia related to another mental disorder [...] progress and adjust treatment plan as needed 09/20/2024 Insomnia related to another mental disorder (ICD-10 - F51.05) 09/20/2024 Stress due to family tension (ICD-10 - Z63.8) 06/14/2024 Encounter for screening for depression (ICD-10 [...] F51.05) 07/12/2024 Nicotine use (ICD-10 - Z72.0) 06/14/2024 Generalized anxiety disorder (ICD-10 - F41.1) [...] cardiovascular disorders (ICD-10 - Z13.6) 06/14/2024 Other [facility] ([facility]), female patient with history of anxiety, presenting [...] Insured Coverage Start Date Coverage End Date [facility] [address] [place] [address] [id number] TOMMY JONES Self - patient is the insured Medical (General) History Medical History History ICD Code Past Psychiatric History: Anxiety Disord er,Panic Disorder,PTSD vitamin D deficiency Surgical History Surgery Date(Month/Year) hysterectomy two years ago
[2024-12-31 02:05] VITALS: BP 141/86; PULSE 76; RESP 20; TEMP 36.8; O2SAT 98
[2024-12-31] MEDS: KETOROLAC 30 MG/ML VIAL (*BKC) IM (03:47)
[2024-12-31] MEDS: ACETAMINOPHEN 500 MG TABLET 1000 MG PO (03:48)
[2024-12-31] MEDS: dexAMETHasone SOD PHOS INJ 10 MG/ML 1 ML VIAL IM (03:48)
--- NOTE | 2024-12-31 04:03 | ED.GENADULT ---
HPI - General Adult General Chief complaint: Upper Respiratory Infection Stated complaint: sore throat Time Seen by Provider: 12/31/24 03:34 History of Present Illness HPI narrative: This is a 44-year-old female presenting with sore throat. Since symptoms for several days. She has seen in urgent care yesterday and had a negative strep test. She is here today because she has had increased pain. She has not have any voice changes. The pain is bilateral. She can still swallow her own secretions. Related Data Home Medications ?Medication ?Instructions ?Recorded ?Confirmed ?Last Taken ?Type cholecalciferol (vitamin D3) 50 50 mcg PO DAILY 10/19/21 10/31/21 Unknown History mcg (2,000 unit) capsule (Vitamin D3) losartan 25 mg tablet 25 mg PO DAILY 10/19/21 10/31/21 10/30/21 History sertraline 50 mg tablet 50 mg PO DAILY 10/19/21 10/31/21 10/30/21 History simvastatin 20 mg tablet 20 mg PO DAILY 10/19/21 10/31/21 10/29/21 History alprazolam 1 mg tablet (Xanax) 1 mg PO BID PRN Anxiety 04/30/23 Unknown History Allergies Allergy/AdvReac Type Severity Reaction Status Date / Time tramadol Allergy Mild Rash Verified 12/29/24 18:44 [facility] Past Medical History Medical History [id number] deficiency Anxiety Depression HTN (hypertension) Obesity Surgical History Surgical History History of tubal ligation Social History Social History Tobacco type: e-cigarettes/vaping Smoking end date: 02/24/21 Additional smoking assessment comments: 7 years smoking,currently vaping Living arrangements: with family Spiritual care concerns: No Exam Narrative: APPEARANCE: No apparent distress. Head: Erythema posterior oropharynx. No exudates. No uvular deviation or evidence of peritonsillar abscess EYES: EOMI, NOSE: Atraumatic NECK: Trachea midline RESPIRATORY: No increased rate of breathing CARDIOVASCULAR: RRR, ABDOMINAL: Non-distended MUSCULOSKELETAl: No obvious deformities NEURO: Alert. Moving 4/4 extremities SKIN:: Warm, dry. Normal color PSYCHIATRIC: Normal affect Course Vital Signs Vital signs: Vital Signs Temperature 98.2 F 12/31/24 02:05 Pulse Rate 76 12/31/24 02:05 Respiratory Rate 20 12/31/24 02:05 Blood Pressure 141/86 H 12/31/24 02:05 Pulse Oximetry 98 12/31/24 02:05 Oxygen Delivery Room Air 12/31/24 02:05 Temperature 98.2 F 12/31/24 02:05 Pulse Rate 76 12/31/24 02:05 Respiratory Rate 20 12/31/24 02:05 Blood Pressure 141/86 H 12/31/24 02:05 Pulse Oximetry 98 12/31/24 02:05 Oxygen Delivery Room Air 12/31/24 02:05 Medical Decision Making MDM Narrative Medical decision making narrative: -Course: 44-year-old female presenting for pharyngitis. She has already had strep in declined testing here. Goals today's visit is pain control. She is given Toradol, dexamethasone. She will be discharged on amoxicillin. Primary care follow-up. Given return precautions for symptoms of peritonsillar abscess, difficulty breathing or difficulty swallowing. -DDX includes but is not limited to: Viral pharyngitis, bacterial pharyngitis, peritonsillar abscess Vital Signs Vital Signs: Vital Signs Temperature 98.2 F 12/31/24 02:05 Pulse Rate 76 12/31/24 02:05 Respiratory Rate 20 12/31/24 02:05 Blood Pressure 141/86 H 12/31/24 02:05 Pulse Oximetry 98 12/31/24 02:05 Oxygen Delivery Room Air 12/31/24 02:05 Temperature 98.2 F 12/31/24 02:05 Pulse Rate 76 12/31/24 02:05 Respiratory Rate 20 12/31/24 02:05 Blood Pressure 141/86 H 12/31/24 02:05 Pulse Oximetry 98 12/31/24 02:05 Oxygen Delivery Room Air 12/31/24 02:05 Discharge Plan Discharge Clinical Impression: Pharyngitis Patient Disposition: Home Condition: Stable Instructions: Antibiotic Form, Pharyngitis (ED) Additional Instructions: You were seen in the emergency department for a sore throat. Please use Motrin Tylenol as needed for pain. Please complete a course of amoxicillin. Return if you develop voice changes, difficulty swallowing her own secretions or difficulty breathing. Patient Language: Malawian Prescriptions: New ibuprofen 800 mg tablet 800 mg PO TID PRN (Reason: pain) 7 Days Qty: 21 0RF acetaminophen 500 mg tablet 1,000 mg PO TID PRN (Reason: shahla) 7 Days Qty: 42 0RF amoxicillin 500 mg capsule 500 mg PO Q12H Qty: 20 0RF No Action prednisone 20 mg tablet 40 mg PO DAILY 5 Days Qty: 10 0RF albuterol sulfate 90 mcg/actuation HFA aerosol inhaler 2 inh inhalation Q4-6H PRN (Reason: shortness of breath or wheezing) Qty: 8.5 0RF (DME) [employer] MDI Spacer Spacer See Rx Instructions .ROUTE .MEDSUPPLY Qty: 1 0RF Rx Instructions: As directed simvastatin 20 mg tablet 20 mg PO DAILY losartan 25 mg tablet 25 mg PO DAILY sertraline 50 mg tablet 50 mg PO DAILY cholecalciferol (vitamin D3) [Vitamin D3] 50 mcg (2,000 unit) Capsule 50 mcg PO DAILY alprazolam [Xanax] 1 mg Tablet 1 mg PO BID PRN (Reason: Anxiety) hydrochlorothiazide 12.5 mg capsule 12.5 mg PO DAILY 30 Days Qty: 30 0RF cyclobenzaprine 10 mg tablet 10 mg PO TID PRN (Reason: muscle spasm) Qty: 20 0RF naproxen 375 mg tablet 375 mg PO BID Qty: 14 0RF Robitussin Cough-Chest Arnaldo DM 10-200 mg capsule 1 tab-cap PO ONCE PRN (Reason: cough) Qty: 14 0RF fluticasone propionate [Flonase Allergy Relief] 50 mcg/actuation spray,suspension 1 spray intranasal DAILY Qty: 16 0RF Rx Instructions: administer into each nostril doxycycline hyclate 100 mg tablet 100 mg PO BID Qty: 20 0RF Follow-up/Referrals: Steven Crouch MD [Primary Care Provider, Family Practice]
== END 2024-12-31 04:21 | disposition home or self-care (01) ==
PROVIDERS: Emergency Provider Emergency Medicine
DX: J02.9 Acute pharyngitis, unspecified (principal); I10 Essential (primary) hypertension; E88.01 Alpha-1-antitrypsin deficiency; F32.A Depression, unspecified; F41.9 Anxiety disorder, unspecified; F17.290 Nicotine dependence, other tobacco product, uncomplicated; Z79.899 Other long term (current) drug therapy
CPT/HCPCS: 96372; 99284; A9270; J1100; J1885

== ENCOUNTER 2025-01-14 15:28 | Emergency (ER) | payer OTHER, SELFPAY ==
--- NOTE | ~2025-01-14 | XR_ITS ---
EXAMINATION: XR chest 2V DATE: 01/14/2025 15:57 INDICATION: Shortness of breath. Cough. TECHNIQUE: Frontal and lateral views of the chest were obtained. COMPARISON: Chest x-ray dated 03/13/2024. FINDINGS: Mild cardiomegaly. Lungs are clear of acute processes. Nasrin and mediastinum are normal. IMPRESSION: 1. No acute findings. Reviewed, dictated and finalized at [facility] IMPRESSION: 1. No acute findings.
[2025-01-14 15:30] VITALS: BP 146/91; PULSE 80; RESP 16; TEMP 36.9; O2SAT 96
--- OUTSIDE RECORDS SUMMARY | 2025-01-14 15:30 | XMS_ITS | Patient Health Record ---
Author Organization [facility] [employer] Address [address] [facility] [address] [place] [address] Care Team Providers Care Track Repairer Helper Name Role Phone Manisha Joyner [phone] Allergies Allergen (clinical drug ingredient) Drug/Non Drug Allergy documented on EMR Reaction Allergy Type Onset Date Status tramadol Tramadol Unknown Drug Allergy Active Results Component Value Reference Range Notes UDT Reviewed date:08/23/2024 12:44:40 PM Interpretation: Performing Lab: Notes/Report: Amphetamine (AMP) n 0 - 1000 ng/ml Buprenorphine (BUP) n 0 - 10 ng/ml Oxazepam (BZO) n 0 - 300 ng/ml Cocaine (YAAN) n 0 - 300 ng/ml Methamphetamine (mAMP) [...] Aerosol Powder Breath Activated Inhalation *Reorder from [facility] for eRx and Interaction Alerts* Active Triamcinolone [...] to alprazolam 11/09/2024 Active Ergocalciferol 1.25 MG (38573 UT) Capsule Oral Not-Takin g Losartan Potassium [...] drink alcohol? No Section Notes: Lives in [place] with 3 rd of 2 yrs, youngest son 16 y/o. and taking care of niece's 8 month old. has 4 other children that are grown. Grew up in [place], 3 siblings. 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 Lives in [place] with 3 rd of 2 yrs, youngest son 16 y/o. and taking care of niece's 8 month old. has 4 other children that are grown. Grew up in [place], 3 siblings. 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 Lives in [place] with 3 rd of 2 yrs, youngest son 16 y/o. and taking care of niece's 8 month old. has 4 other children that are grown. Grew up in [place], 3 siblings. 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 Lives in [place] with 3 rd of 2 yrs, youngest son 16 y/o. and taking care of niece's 8 month old. has 4 other children that are grown. Grew up in [place], 3 siblings. 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 Lives in [place] with 3 rd of 2 yrs, youngest son 16 y/o. and taking care of niece's 8 month old. has 4 other children that are grown. Grew up in [place], 3 siblings. 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 Lives in [place] with 3 rd of 2 yrs, youngest son 16 y/o. and taking care of niece's 8 month old. has 4 other children that are grown. Grew up in [place], 3 siblings. 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 Problems Problem Type SNOMED Code ICD Code Onset Dates Problem Status W/U Status Risk Notes Problem Generalized anxiety disorder (70349652) Generalized anxiety disorder (F41.1) Active confirmed Problem Insomnia disorder related to another mental disorder (50071033) Insomnia related to another mental disorder (F51.05) Active confirmed Problem Panic disorder (982229467) Panic attacks (F41.0) Active confirmed Problem Tobacco use (415197970) Nicotine use (Z72.0) Active confirmed Problem Stress due to family tension (410003035833501 ) Stress due to family tension (Z63.8) Active confirmed Vital Signs Heart Rate 65 /min 09/20/2024 Blood pressure diastolic 85 mm Hg 09/20/2024 Weight-kg 123.38 kg 09/20/2024 Blood pressure systolic 139 mm Hg 09/20/2024 Weight 272 lbs 09/20/2024 Encounters Encounter Location Date Provider Diagnosis [facility] [employer] [address] [address] 02/04/2024 Manisha Joyner [facility] [employer] [address] [address] 04/14/2024 Manisha Joyner Generalized anxiety disorder F41.1 ; Panic attacks F41.0 ; Insomnia related to another mental disorder F51.05 and Encounter for screening for depression Z13.31 [facility] [address] [address] 06/14/2024 Manisha Joyner Insomnia related to another mental disorder F51.05 ; Panic attacks F41.0 ; Encounter for screening for depression Z13.31 ; Generalized anxiety disorder F41.1 and Encounter for screening for cardiovascular disorders Z13.6 [facility] [address] [place] [address] [place] [address] 07/12/2024 Manisha Hagopian Generalized anxiety disorder F41.1 ; Panic attacks F41.0 ; Insomnia related to another mental disorder F51.05 ; Nicotine use Z72.0 ; Negative depression screening Z13.31 and Encounter for screening for cardiovascular disorders Z13.6 [facility] [address] [place] [address] [place] [address] 08/23/2024 Manisha Hagopian Generalized anxiety disorder F41.1 ; Panic attacks F41.0 ; Insomnia related to another mental disorder F51.05 ; Nicotine use Z72.0 and Encounter for screening for depression Z13.31 [facility] [address] [place] [address] 09/20/2024 Manisha Hagopian Generalized anxiety disorder F41.1 ; Panic attacks F41.0 ; Insomnia related to another mental disorder F51.05 and Stress due to family tension Z63.8 [facility] [address] [place] [address] 02/03/2024 Manisha Hagopian [facility] [address] [place] [address] 04/02/2024 Manisha Hagopian Panic attacks F41.0 [facility] [address] [place] [address] [place] [address] 04/14/2024 Manisha Hagopian Generalized anxiety disorder F41.1 and Panic attacks F41.0 [facility] [address] [place] [address] 05/24/2024 Manisha Hagopian Generalized anxiety disorder F41.1 [facility] [address] [place] [address] 05/24/2024 Manisha Hagopian Panic attacks F41.0 [facility] [address] [place] [address] 05/25/2024 Manisha Hagopian Generalized anxiety disorder F41.1 [facility] [address] [place] [address] 05/25/2024 Manisha Hagopian Panic attacks F41.0 [facility], [place] [address] [facility] [address] [place] [address] 05/25/2024 Manisha Joyner [facility], [facility] [address] [facility] [address] [place] [address] 05/25/2024 Manisha Joyner [facility], [place] [address] [facility] [address] [place] [address] 06/15/2024 Manisha Joyner [facility], [facility] [address] [facility] [address] [place] [address] 11/08/2024 Manisha Joyner [facility], [place] [address] [facility] [address] [place] [address] 11/08/2024 Manisha Joyner [facility], [facility] [address] [facility] [address] [place] [address] 11/09/2024 Manisha Joyner Panic attacks F41.0 [place] [address] [facility] [address] [place] [address] 11/10/2024 Manisha Joyner Assessments Encounter Date Diagnosis [...] progress and adjust treatment plan as needed 04/14/2024 Generalized anxiety disorder (ICD-10 - F41.1) 05/24/2024 Generalized anxiety disorder (ICD-10 - F41.1) 05/24/2024 Panic attacks (ICD-10 - F41.0) 05/25/2024 Generalized anxiety disorder (ICD-10 - F41.1) 05/25/2024 Panic attacks (ICD-10 - F41.0) 06/14/2024 Insomnia related to another mental disorder (ICD-10 - F51.05) 07/12/2024 Generalized anxiety disorder (ICD-10 - F41.1) 07/12/2024 Panic attacks (ICD-10 - F41.0) 08/23/2024 Generalized anxiety disorder (ICD-10 - F41.1) 09/20/2024 Generalized anxiety disorder (ICD-10 - F41.1) 09/20/2024 Panic attacks (ICD-10 - F41.0) 11/09/2024 Panic attacks (ICD-10 - F41.0) 09/20/2024 Insomnia related to another mental disorder (ICD-10 - F51.05) 08/23/2024 Panic attacks (ICD-10 - F41.0) 07/12/2024 Insomnia related to another mental disorder (ICD-10 - F51.05) 06/14/2024 Panic attacks (ICD-10 - F41.0) 04/14/2024 [...] progress and adjust treatment plan as needed 04/14/2024 Panic attacks (ICD-10 - F41.0) 04/14/2024 Insomnia related to another mental disorder [...] and adjust treatment plan as needed 06/14/2024 Generalized anxiety disorder (ICD-10 - F41.1) 06/14/2024 Encounter for screening for depression (ICD-10 - Z13.31) 07/12/2024 Nicotine use (ICD-10 - Z72.0) 08/23/2024 Insomnia related to another mental disorder (ICD-10 - F51.05) 09/20/2024 Stress due to family tension (ICD-10 - Z63.8) 08/23/2024 Nicotine use (ICD-10 - Z72.0) 07/12/2024 Negative depression screening (ICD-10 - Z13.31) 06/14/2024 Encounter for screening for cardiovascular disorders (ICD-10 - Z13.6) 04/14/2024 Encounter for screening for depression (ICD-10 [...] for depression (ICD-10 - Z13.31) 06/14/2024 Other Tommy Jones, female patient with history of anxiety, presenting [...] Insured Coverage Start Date Coverage End Date [facility] [id number] [place] [address] [id number] TOMMY JONES Self - patient is the insured Medical (General) History Medical History History ICD Code Past Psychiatric History: Anxiety Disord er,Panic Disorder,PTSD vitamin D deficiency Surgical History Surgery Date(Month/Year) hysterectomy two years ago
--- OUTSIDE RECORDS SUMMARY | 2025-01-14 15:30 | XMS_ITS | Encounter Summary ---
Author Organization [employer] Address [address] [place] [address] Care Team Providers Care Airline Operations Agent Name Role Phone Nancy Lewis MD Primary Care Provider [phone] Encounter Details Date Type Department Care Team [...] on file Legal Sex Female 3:01 AM CONCILIATOR Gender Identity Not on file Sexual Orientation Not on file documented as of this encounter Plan of Treatment Not on file documented as of this encounter Visit Diagnoses Diagnosis Abdominal pain, unspecified site- Primary documented in this encounter Additional Health Concerns Infection Onset Date Last Indicated Resolved Time R/O COVID-19 02/01/2021 02/06/2021 02/06/2021 11:3 2 AM CONCILIATOR documented as of this encounter Care Teams Airline Operations Agent Relationship Specialty Start Date End Date Nancy Lewis MD [address] [place] [address] PCP - General Family Practice 09/06/21 documented as of this encounter
--- OUTSIDE RECORDS SUMMARY | 2025-01-14 15:30 | XMS_ITS | Encounter Summary ---
Author Organization [employer] Address [address] [place] [address] Care Team Providers Care Credit Reporting Clerk Name Role Phone Nancy Lewis MD Primary Care Provider [phone] Encounter Details Date Type Department Care Team (Late st Contact Info) Description 07/31/2008 Emergency [facility] [place], Authorized P NO ADDRESS ON FILE Ishmael Long MD [address] [place] [address] [place] [address] Social History Tobacco Use Types Packs/Day Years Used Date Smoking Tobacco: Never Assessed Comments Unknown Sex and Gender Information Value Date Recorded Sex Assigned at Not on file Legal Sex Female 3:01 AM CONTENT SPECIALIST Gender Identity Not on file Sexual Orientation Not on file documented as of this encounter Plan of Treatment Not on file documented as of this encounter Visit Diagnoses Not on filedocumented in this encounter Additional Health Concerns Infection Onset Date Last Indicated Resolved Time R/O COVID-19 02/01/2021 02/06/2021 02/06/2021 11:3 2 AM CONTENT SPECIALIST documented as of this encounter Care Teams Credit Reporting Clerk Relationship Specialty Start Date End Date Nancy Lewis MD [address] [place] [address] PCP - General Family Practice 09/06/21 documented as of this encounter
--- OUTSIDE RECORDS SUMMARY | 2025-01-14 15:30 | XMS_ITS | Encounter Summary ---
Author Organization [employer] Address [address] [place] [address] Care Team Providers Care Governor Assembler Hydraulic Name Role Phone Nancy Lewis MD Primary Care Provider [phone] Encounter Details Date Type Department Care Team (Late st Contact Info) Description 09/12/2006 Emergency [facility] Jet Flores MD [address] [place] [address] [place], Authorized P NO ADDRESS ON FILE Urinary Tract Infection, Site not Specified (Primary Dx) Social History Tobacco Use Types Packs/Day Years Used Date Smoking Tobacco: Never Assessed Comments Unknown Sex and Gender Information Value Date Recorded Sex Assigned at Not on file Legal Sex Female 3:01 AM MAT REPAIRER Gender Identity Not on file Sexual Orientation Not on file documented as of this encounter Plan of Treatment Not on file documented as of this encounter Visit Diagnoses Diagnosis Urinary tract infection, site not specified- Primary documented in this encounter Additional Health Concerns Infection Onset Date Last Indicated Resolved Time R/O COVID-19 02/01/2021 02/06/2021 02/06/2021 11:3 2 AM MAT REPAIRER documented as of this encounter Care Teams Governor Assembler Hydraulic Relationship Specialty Start Date End Date Nancy Lewis MD [address] [place] [address] PCP - General Family Practice 09/06/21 documented as of this encounter
--- OUTSIDE RECORDS SUMMARY | 2025-01-14 15:30 | XMS_ITS | Encounter Summary ---
Author Organization [employer] Address [address] [place] [address] Care Team Providers Care Railroad Operating Engineer Name Role Phone Nancy Lewis MD Primary Care Provider [phone] Encounter Details Date Type Department Care Team [...] on file Legal Sex Female 3:01 AM PAPER CORE MACHINE OPERATOR Gender Identity Not on file Sexual [...] ORDERABLES Fi nal Result Performing Organization Address [facility] Phone Number INTERFACE SYSTEM Refer to [...] ORDERABLES Fi nal Result Performing Organization Address [facility] Phone Number INTERFACE SYSTEM Refer to [...] COVID-19 02/01/2021 02/06/2021 02/06/2021 11:3 2 AM PAPER CORE MACHINE OPERATOR documented as of this encounter Care Teams Railroad Operating Engineer Relationship Specialty Start Date End Date Nancy Lewis MD [address] [place] [address] PCP - General Family Practice 09/06/21 documented as of this encounter
--- OUTSIDE RECORDS SUMMARY | 2025-01-14 15:30 | XMS_ITS | Encounter Summary ---
Author Organization [employer] Address [address] [place] [address] Care Team Providers Care Pantry Attendant Name Role Phone Nancy Lewis MD Primary Care Provider [phone] Encounter Details Date Type Department Care Team (Latest Contact Info) Description 10/09/2006 Outpatient Historical [facility] Hermelinda Parisi MD [address] [place] [address] [address] [place] [address] Other Current Maternal Conditions Classifiable Elsewhere, Antepartum (Primary Dx) Social History Tobacco Use Types Packs/Day Years Used Date Smoking Tobacco: Never Assessed Comments Unknown Sex and Gender Information Value Date Recorded Sex Assigned at Not on file Legal Sex Female 3:01 AM MAINTENANCE WORKER Gender Identity Not on file Sexual Orientation Not on file documented as of this encounter Plan of Treatment Not on file documented as of this encounter Visit Diagnoses Diagnosis Other current maternal conditions classifiable elsewhere, antepartum- Primary documented in this encounter Additional Health Concerns Infection Onset Date Last Indicated Resolved Time R/O COVID-19 02/01/2021 02/06/2021 02/06/2021 11:3 2 AM MAINTENANCE WORKER documented as of this encounter Care Teams Pantry Attendant Relationship Specialty Start Date End Date Nancy Lewis MD [address] [place] [phone] PCP - General Family Practice 09/06/21 documented as of this encounter
--- OUTSIDE RECORDS SUMMARY | 2025-01-14 15:30 | XMS_ITS | Clinical Summary ---
Author Organization [facility] Address [address] [place] [address] Phone Care Team Providers Care Web Production Designer Name Role Phone Nancy Lewis MD Primary Care Provider Allergies Active Allergy Reactions Criticality Noted Date Comments Tramadol Rash Low 02/01/2021 Medications albuterol (PROVENTIL,VENT OJSUE) 90 mcg/Actuation Inhalation HFAA Take 2 Puffs [...] file Legal Sex Female 3:01 AM GAS CHECK PAD MAKER Gender Identity Not on file Sexual Orientation [...] OPEN ACCESS ALLEGIANCE OPEN ACCESS Care Teams Web Production Designer Relationship Specialty Start Date End Date Nancy Lewis MD [address] [facility] [place] [phone] PCP - General Family Practice 09/06/21
--- OUTSIDE RECORDS SUMMARY | 2025-01-14 15:30 | XMS_ITS | Encounter Summary ---
Author Organization [employer] Address [address] [place] [address] Care Team Providers Care Hand Stoner Name Role Phone Nancy Lewis MD Primary Care Provider [phone] Encounter Details Date Type Department Care Team [...] on file Legal Sex Female 3:01 AM BROILER SUPERVISOR Gender Identity Not on file Sexual [...] ORDERABLES Final R esult Performing Organization Address [facility] Phone Number INTERFACE SYSTEM Refer [...] ORDERABLES Fi nal Result Performing Organization Address [facility] Phone Number INTERFACE SYSTEM Refer to clinic/hospital [...] Organization Address [facility] de Phone Number INTERFACE SYSTEM Refer to clinic/hospital department * URIC ACID (08/13/2004 4:45 PM CDT) URIC ACID 5.7 2.3 - 6.6 mg/dL INTERFACE SYSTEM 08/13/2004 4:45 PM CDT Luz Marina Camp MD CHEMISTRY ORDERABLES Fin al Result Performing Organization Address [facility] Phone Number INTERFACE SYSTEM Refer to clinic/hospital department * LACTATE DEHYDROGENASE (08/13/2004 4:45 PM CDT) LD (LACTATE DEHYDROGENASE) 165 135 - 214 U/L INTERFACE SYSTEM 08/13/2004 4:45 PM CDT Luz Marina Camp MD CHEMISTRY ORDERABLES Fin al Result Performing Organization Address [facility] Phone Number INTERFACE SYSTEM Refer to clinic/hospital department * AST (08/13/2004 4:45 PM CDT) AST 15 12 - 32 U/L INTERFAC E SYSTEM 08/13/2004 4:45 PM CDT Luz Marina Camp MD CHEMISTRY ORDERABLES Fin al Result Performing Organization Address [facility] de Phone Number INTERFACE SYSTEM Refer to [...] COVID-19 02/01/2021 02/06/2021 02/06/2021 11:3 2 AM BROILER SUPERVISOR documented as of this encounter Care Teams Hand Stoner Relationship Specialty Start Date End Date Nancy Lewis MD [address] [place] [phone] PCP - General Family Practice 09/06/21 documented as of this encounter
--- NOTE | 2025-01-14 15:34 | ECG_ITS ---
Test Date: 2025-01-14 15:49:46 Measurements Intervals Raymond Rate: 75 P: 28 NH: 143 QRS: -2 QRSD: 93 T: 55 QT: 384 QTc: 430 Interpretive Statements SINUS RHYTHM Poor R wave progression Electronically Signed On 01-14-2025 19:08:11 BUCKSHOT SWAGE OPERATOR by Dulce Pearce M.D.
--- NOTE | 2025-01-14 15:35 | ED.GENADULT ---
HPI - General Adult General Chief complaint: Unspecified <Alondra Bah APRN - Last Filed: 01/14/25 15:36> Stated complaint: sick X1.5 month, sore throat, cough, UTI <Alondra Bah APRN - Last Filed: 01/14/25 15:36> Time Seen by Provider: 01/14/25 15:35 <Alondra Bah APRN - Last Filed: 01/14/25 15:36> Focused HPI: Patient is a 44-year-old female who presents to the ER with complaints of cough, costochondritis, and shortness of breath. She reports she had COVID approximately 1 month ago. Patient reports since then she has been to both urgent care in here for further evaluation. She reports the chest pain has worsened recently. Patient also endorses recent bladder issues including incontinence at night. She endorses a history of bronchitis and high blood pressure. GENERAL: Well-appearing, obese, and in no acute distress. HEAD: Normocephalic, atraumatic. CHEST: Clear to auscultation. ?No respiratory distress. HEART: Regular rate and rhythm.? NEURO: ?Alert and oriented x3. Patient screened in triage and initial orders placed.? ?Additional care and disposition to be based upon?diagnostic testing and treatment. <Alondra Bah APRN - Last Filed: 01/14/25 15:36> History of Present Illness HPI narrative: Agree with the above <Lisy Hwang MD - Last Filed: 01/14/25 16:42> Related Data Home medications: Home Medications ?Medication ?Instructions ?Recorded ?Confirmed ?Last Taken ?Type cholecalciferol (vitamin D3) 50 50 mcg PO DAILY 10/19/21 10/31/21 Unknown History mcg (2,000 unit) capsule (Vitamin D3) losartan 25 mg tablet 25 mg PO DAILY 10/19/21 10/31/21 10/30/21 History sertraline 50 mg tablet 50 mg PO DAILY 10/19/21 10/31/21 10/30/21 History simvastatin 20 mg tablet 20 mg PO DAILY 10/19/21 10/31/21 10/29/21 History alprazolam 1 mg tablet (Xanax) 1 mg PO BID PRN Anxiety 04/30/23 Unknown History <Alondra Bah APRN - Last Filed: 01/14/25 15:36> Allergies/adverse reactions: Allergies Allergy/AdvReac Type Severity Reaction Status Date / Time tramadol Allergy Mild Rash Verified 01/14/25 15:29 <Alondra Bah APRN - Last Filed: 01/14/25 15:36> Review of Systems Review of Systems: All systems reviewed & are unremarkable except as noted in HPI and below <Lisy Hwang MD - Last Filed: 01/14/25 16:42> [facility] Past Medical History Medical History: Medical History [id number] deficiency Anxiety Depression HTN (hypertension) Obesity <Alondra Bah APRN - Last Filed: 01/14/25 15:36> Surgical History Surgical History: Surgical History History of tubal ligation <Alondra Bah APRN - Last Filed: 01/14/25 15:36> Social History Social History: Social History Smoking status: Former smoker Tobacco type: e-cigarettes/vaping Smoking end date: 02/24/21 Additional smoking assessment comments: 7 years smoking,currently vaping Living arrangements: with family Spiritual care concerns: No <Alondra Bah APRN - Last Filed: 01/14/25 15:36> Exam Narrative: General appearance: Well-developed, well-nourished, intermittent dry cough Skin: Normal color Head: Normocephalic, nontraumatic Eyes: Clear conjunctiva ENT: Oropharynx normal, ears normal, nose normal Neck: Supple, nontender Chest and respiratory: Airway patent, no respiratory distress, no accessory muscle use few scattered fine wheezing bilaterally Heart: Regular rate/rhythm Abdomen: Soft, nontender, no organomegaly, quiet bowel sounds Vascular: Normal peripheral pulses, normal capillary refill. Musculoskeletal: Normal range of motion, nontender back Neurologic: Alert and oriented ?3, CAROUSEL OPERATOR is normal as tested, no gross motor deficit <Lisy Hwang MD - Last Filed: 01/14/25 16:42> Course Vital Signs Vital signs: Vital Signs Temperature 36.9 C 01/14/25 15:30 Pulse Rate 80 01/14/25 15:30 Respiratory Rate 16 01/14/25 15:30 Blood Pressure 146/91 H 01/14/25 15:30 Pulse Oximetry 96 01/14/25 15:30 Oxygen Delivery Room Air 01/14/25 15:30 Temperature 36.9 C 01/14/25 15:30 Pulse Rate 80 01/14/25 15:30 Respiratory Rate 16 01/14/25 15:30 Blood Pressure 146/91 H 01/14/25 15:30 Pulse Oximetry 96 01/14/25 15:30 Oxygen Delivery Room Air 01/14/25 15:30 <Alondra Bah APRN - Last Filed: 01/14/25 15:36> Vital Signs Temperature 36.9 C 01/14/25 15:30 Pulse Rate 80 01/14/25 15:30 Respiratory Rate 16 01/14/25 15:30 Blood Pressure 146/91 H 01/14/25 15:30 Pulse Oximetry 96 01/14/25 15:30 Oxygen Delivery Room Air 01/14/25 15:30 Temperature 36.9 C 01/14/25 15:30 Pulse Rate 80 01/14/25 15:30 Respiratory Rate 16 01/14/25 15:30 Blood Pressure 146/91 H 01/14/25 15:30 Pulse Oximetry 96 01/14/25 15:30 Oxygen Delivery Room Air 01/14/25 15:30 <Lisy Hwang MD - Last Filed: 01/14/25 16:42> Medical Decision Making MDM Narrative Medical decision making narrative: Patient report been having dry cough since had COVID 1 and half months ago. Patient is vaping. Vital signs are stable Physical examination showing intermittent dry cough, with few scattered fine wheezing with expiration Differential diagnosis long COVID, chronic bronchitis, pneumonia Blood workup today includes CBC, CMP showed no acute abnormality Chest x-ray showed no acute abnormality Diagnosis chronic bronchitis, COVID, Discharged on Z-José, prednisone, Advair and albuterol Follow-up with registered massage therapist in 1 week. The pt was discharged to home.the pt,s condition upon discharge was fair,education was provided to the pt in reference to the final impression,discharge study results,treatment,prognosis and need for follow up . <Lisy Hwang MD - Last Filed: 01/14/25 16:42> Differential Diagnosis Differential Diagnosis: As above <Lisy Hwang MD - Last Filed: 01/14/25 16:42> Vital Signs Vital Signs: Vital Signs Temperature 36.9 C 01/14/25 15:30 Pulse Rate 80 01/14/25 15:30 Respiratory Rate 16 01/14/25 15:30 Blood Pressure 146/91 H 01/14/25 15:30 Pulse Oximetry 96 01/14/25 15:30 Oxygen Delivery Room Air 01/14/25 15:30 Temperature 36.9 C 01/14/25 15:30 Pulse Rate 80 01/14/25 15:30 Respiratory Rate 16 01/14/25 15:30 Blood Pressure 146/91 H 01/14/25 15:30 Pulse Oximetry 96 01/14/25 15:30 Oxygen Delivery Room Air 01/14/25 15:30 <Alondra Bah, WAREHOUSE INVENTORY CLERK - Last Filed: 01/14/25 15:36> Vital Signs Temperature 36.9 C 01/14/25 15:30 Pulse Rate 80 01/14/25 15:30 Respiratory Rate 16 01/14/25 15:30 Blood Pressure 146/91 H 01/14/25 15:30 Pulse Oximetry 96 01/14/25 15:30 Oxygen Delivery Room Air 01/14/25 15:30 Temperature 36.9 C 01/14/25 15:30 Pulse Rate 80 01/14/25 15:30 Respiratory Rate 16 01/14/25 15:30 Blood Pressure 146/91 H 01/14/25 15:30 Pulse Oximetry 96 01/14/25 15:30 Oxygen Delivery Room Air 01/14/25 15:30 <Lisy Hwang MD - Last Filed: 01/14/25 16:42> Lab Data Result diagrams: 01/14/25 15:47 01/14/25 15:47 <Alondra Bah WAREHOUSE INVENTORY CLERK - Last Filed: 01/14/25 15:36> Labs: Lab Results 01/14/25 Range/Units 15:47 WBC 8.9 (4.5-10.0) K/mm3 RBC 5.23 (4.2-5.4) M/mm3 Hgb 13.6 (12.0-15.0) g/dL Hct 42.8 (37.0-47.0) % MCV 81.8 (80-100) fl MCH 26.0 (26-34) pg MCHC 31.8 L (32-36) g/dl RDW 14.2 (11.5-14.5) % Plt Count 384 H (150-375) k/mm3 MPV 9.6 (7.4-10.4) fl Immature Gran % (Auto) 0.3 (0-0.5) % Neut % (Auto) 57.7 (45.5-73.1) % Lymph % (Auto) 32.9 (18.3-44.2) % Wise % (Auto) 5.8 (2.6-8.5) % Eos % (Auto) 2.7 (0-4.4) % Baso % (Auto) 0.6 (0.2-1.2) % Lymph # (Auto) 2.93 (0.9-3.2) K/mm3 Wise # (Auto) 0.5 (0.1-0.6) K/mm3 Eos # (Auto) 0.2 (0-0.3) K/mm3 Baso # (Auto) 0.1 (0.0-0.1) K/mm3 Abs Immat Gran (auto) 0.03 (0.00-0.031) K/mm3 Absolute Neuts (auto) 5.1 (1.3-6.7) K/mm3 Absolute Nucleated RBC 0.000 (0.0-0.012) K/mm3 Nucleated RBC % 0.0 (0.0-0.2) % PT Pending INR Pending APTT Pending D-Dimer Pending Sodium 138 (137-145) mmol/L Potassium 3.8 (3.4-5.0) mmol/L Chloride 104 (98-107) mmol/L Carbon Dioxide 24 (22-30) mmol/L Anion Gap 10 (4-12) mmol/L BUN 16 (7-17) mg/dL Creatinine 0.77 (0.7-1.0) mg/dL Estim Creat Clear Calc 109 ml/min Estimated GFR > 60 (59 - ) Glucose 116 H (65-110) mg/dL Lactic Acid 1.7 (0.7-2.0) mmol/L Calcium 9.4 (8.4-10.2) mg/dL Magnesium 2.0 (1.6-2.3) mg/dL Total Bilirubin 0.3 (0.2-1.3) mg/dL AST 25 (14-36) U/L ALT 34 (6-35) U/L Alkaline Phosphatase 70 (38-126) U/L Troponin I Pending NT-Pro-B Natriuret Pep Pending Total Protein 8.0 (6.3-8.2) g/dL Albumin 4.3 (3.5-5.1) g/dL Urine Color Yellow (Yellow) Urine Appearance Cloudy H (Clear) Urine pH 5.5 (5.0-9.0) Ur Specific [place] 1.027 (1.001-1.035) Urine Protein Negative (Negative) mg/dL Urine Glucose (UA) Negative (Negative) mg/dL Urine Ketones Negative (Negative) mg/dL Ur Blood (Man) Negative (Negative) Urine Nitrate Negative (Negative) Urine Bilirubin Negative (Negative) Urine Urobilinogen 0.2 (<2.0) mg/dL Leukocyte Esterase Rfl Negative (Negative) ARELY/UL Urine RBC 0-2 (0-2) /hpf Urine WBC 0-5 (0-3) /hpf Ur Squamous Epith Cells Moderate (Few) /hpf Urine Bacteria 3+ H /hpf Urine Casts 0-2 Urine Opiates Screen Pending Urine Methadone Screen Pending Ur Barbiturates Screen Pending Ur Phencyclidine Scrn Pending Ur Amphetamine Screen Pending U Benzodiazepines Scrn Pending Urine Cocaine Screen Pending U Cannabinoids Screen Pending <Alondra Bah, WAREHOUSE INVENTORY CLERK - Last Filed: 01/14/25 15:36> Lab Results 01/14/25 Range/Units 15:47 WBC 8.9 (4.5-10.0) K/mm3 RBC 5.23 (4.2-5.4) M/mm3 Hgb 13.6 (12.0-15.0) g/dL Hct 42.8 (37.0-47.0) % MCV 81.8 (80-100) fl MCH 26.0 (26-34) pg MCHC 31.8 L (32-36) g/dl RDW 14.2 (11.5-14.5) % Plt Count 384 H (150-375) k/mm3 MPV 9.6 (7.4-10.4) fl Immature Gran % (Auto) 0.3 (0-0.5) % Neut % (Auto) 57.7 (45.5-73.1) % Lymph % (Auto) 32.9 (18.3-44.2) % Wise % (Auto) 5.8 (2.6-8.5) % Eos % (Auto) 2.7 (0-4.4) % Baso % (Auto) 0.6 (0.2-1.2) % Lymph # (Auto) 2.93 (0.9-3.2) K/mm3 Wise # (Auto) 0.5 (0.1-0.6) K/mm3 Eos # (Auto) 0.2 (0-0.3) K/mm3 Baso # (Auto) 0.1 (0.0-0.1) K/mm3 Abs Immat Gran (auto) 0.03 (0.00-0.031) K/mm3 Absolute Neuts (auto) 5.1 (1.3-6.7) K/mm3 Absolute Nucleated RBC 0.000 (0.0-0.012) K/mm3 Nucleated RBC % 0.0 (0.0-0.2) % PT Pending INR Pending APTT Pending D-Dimer Pending Sodium 138 (137-145) mmol/L Potassium 3.8 (3.4-5.0) mmol/L Chloride 104 (98-107) mmol/L Carbon Dioxide 24 (22-30) mmol/L Anion Gap 10 (4-12) mmol/L BUN 16 (7-17) mg/dL Creatinine 0.77 (0.7-1.0) mg/dL Estim Creat Clear Calc 109 ml/min Estimated GFR > 60 (59 - ) Glucose 116 H (65-110) mg/dL Lactic Acid 1.7 (0.7-2.0) mmol/L Calcium 9.4 (8.4-10.2) mg/dL Magnesium 2.0 (1.6-2.3) mg/dL Total Bilirubin 0.3 (0.2-1.3) mg/dL AST 25 (14-36) U/L ALT 34 (6-35) U/L Alkaline Phosphatase 70 (38-126) U/L Troponin I Pending NT-Pro-B Natriuret Pep Pending Total Protein 8.0 (6.3-8.2) g/dL Albumin 4.3 (3.5-5.1) g/dL Urine Color Yellow (Yellow) Urine Appearance Cloudy H (Clear) Urine pH 5.5 (5.0-9.0) Ur Specific [place] 1.027 (1.001-1.035) Urine Protein Negative (Negative) mg/dL Urine Glucose (UA) Negative (Negative) mg/dL Urine Ketones Negative (Negative) mg/dL Ur Blood (Man) Negative (Negative) Urine Nitrate Negative (Negative) Urine Bilirubin Negative (Negative) Urine Urobilinogen 0.2 (<2.0) mg/dL Leukocyte Esterase Rfl Negative (Negative) ARELY/UL Urine RBC 0-2 (0-2) /hpf Urine WBC 0-5 (0-3) /hpf Ur Squamous Epith Cells Moderate (Few) /hpf Urine Bacteria 3+ H /hpf Urine Casts 0-2 Urine Opiates Screen Pending Urine Methadone Screen Pending Ur Barbiturates Screen Pending Ur Phencyclidine Scrn Pending Ur Amphetamine Screen Pending U Benzodiazepines Scrn Pending Urine Cocaine Screen Pending U Cannabinoids Screen Pending <Lisy Hwang MD - Last Filed: 01/14/25 16:42> Imaging Data Radiologist's impression: Impressions Chest X-Ray 01/14/25 16:02 IMPRESSION: 1. No acute findings. <Lisy Hwang MD - Last Filed: 01/14/25 16:42> Critical Care Time Critical Care Time Critical Care Time: No <Lisy Hwang MD - Last Filed: 01/14/25 16:42> Discharge Plan Discharge Clinical Impression: Bronchitis, COVID-19 long hauler manifesting chronic cough <Alondra Bah APRN - Last Filed: 01/14/25 15:36> Patient Disposition: Home <Alondra Bah APRN - Last Filed: 01/14/25 15:36> Condition: Stable <Alondra Bah APRN - Last Filed: 01/14/25 15:36> Instructions: Antibiotic Form, How to Stop Smoking (ED), Chronic Bronchitis (DC), Long COVID (ED) <Alondra Bah APRN - Last Filed: 01/14/25 15:36> Additional Instructions: Return if symptoms are worsening , call your family physician for appointment, take Tylenol as as needed for aches and pain, continue home medications. How to to stop smoking/vaping instructions <Alondra Bah APRN - Last Filed: 01/14/25 15:36> Patient Language: Arabic <Alondra Bah APRN - Last Filed: 01/14/25 15:36> Prescriptions: New azithromycin [Zithromax Z-José] 250 mg tablet 250 mg PO DAILY PRN (Reason: pneumonia) 5 Days Qty: 6 0RF prednisone 20 mg tablet 40 mg PO DAILY 5 Days Qty: 10 0RF fluticasone propion-salmeterol [Advair Diskus] 250-50 mcg/dose blister with device 1 inh inhalation Q12H MDD Twice a day 14 Days Qty: 60 0RF albuterol sulfate [Ventolin HFA] 90 mcg/actuation HFA aerosol inhaler 2 puff inhalation QID PRN (Reason: shortness of breath or wheezing) Qty: 8.5 0RF No Action prednisone 20 mg tablet 40 mg PO DAILY 5 Days Qty: 10 0RF albuterol sulfate 90 mcg/actuation HFA aerosol inhaler 2 inh inhalation Q4-6H PRN (Reason: shortness of breath or wheezing) Qty: 8.5 0RF (DME) BreatheRite MDI Spacer Spacer See Rx Instructions .ROUTE .MEDSUPPLY Qty: 1 0RF Rx Instructions: As directed simvastatin 20 mg tablet 20 mg PO DAILY losartan 25 mg tablet 25 mg PO DAILY sertraline 50 mg tablet 50 mg PO DAILY cholecalciferol (vitamin D3) [Vitamin D3] 50 mcg (2,000 unit) Capsule 50 mcg PO DAILY alprazolam [Xanax] 1 mg Tablet 1 mg PO BID PRN (Reason: Anxiety) hydrochlorothiazide 12.5 mg capsule 12.5 mg PO DAILY 30 Days Qty: 30 0RF cyclobenzaprine 10 mg tablet 10 mg PO TID PRN (Reason: muscle spasm) Qty: 20 0RF naproxen 375 mg tablet 375 mg PO BID Qty: 14 0RF Robitussin Cough-Chest Arnaldo DM 10-200 mg capsule 1 tab-cap PO ONCE PRN (Reason: cough) Qty: 14 0RF fluticasone propionate [Flonase Allergy Relief] 50 mcg/actuation spray,suspension 1 spray intranasal DAILY Qty: 16 0RF Rx Instructions: administer into each nostril doxycycline hyclate 100 mg tablet 100 mg PO BID Qty: 20 0RF ibuprofen 800 mg tablet 800 mg PO TID PRN (Reason: pain) 7 Days Qty: 21 0RF acetaminophen 500 mg tablet 1,000 mg PO TID PRN (Reason: shahla) 7 Days Qty: 42 0RF amoxicillin 500 mg capsule 500 mg PO Q12H Qty: 20 0RF fluconazole 150 mg tablet 150 mg PO ONCE Qty: 1 0RF Rx Instructions: as a single dose <Alondra Bah, GARRET - Last Filed: 01/14/25 15:36> Follow-up/Referrals: Ariela Menjivar MD [Physician, Pulmonology] - 01/21/25 PHYSICIAN,CAREER COUNSELOR [Primary Care Provider, Internal Medicine] <Alondra Bah APRN - Last Filed: 01/14/25 15:36>
[2025-01-14 16:04] LABS: Hematocrit 42.8 % (37.0-47.0); Hemoglobin 13.6 g/dL (12.0-15.0); Immature Granulocyte Percent A 0.3 % (0-0.5); Lymphocytes Absolute Auto 2.93 K/mm3 (0.9-3.2); Mean Corpuscular HGB Conc 31.8 g/dl (32-36); Mean Corpuscular Hemoglobin 26.0 pg (26-34); Mean Corpuscular Volume 81.8 fl (80-100); Nucleated Red Blood Cells Absolute Auto 0.000 K/mm3 (0.0-0.012); Nucleated Red Blood Cells Perc 0.0 % (0.0-0.2); Platelet Count Result 384 k/mm3 (150-375); Red Blood Count 5.23 M/mm3 (4.2-5.4); White Blood Count 8.9 K/mm3 (4.5-10.0)
[2025-01-14 16:11] LABS: Add Urine Microscopic? YES; Appearance Urine Cloudy (Clear); Glucose Urine UA Negative (Negative); Leukocyte Esterase Ur Negative LEU/UL (Negative); Nitrate Urine Negative (Negative); Non Pathogenic Casts 0-2; Specific Grav Ur 1.027 (1.001-1.035)
[2025-01-14 16:16] LABS: Alanine Aminotransferase 34 U/L (6-35); Albumin Level 4.3 g/dL (3.5-5.1); Alkaline Phosphatase 70 U/L (38-126); Anion Gap 10 mmol/L (4-12); Aspartate Amino Transferase 25 U/L (14-36); Bilirubin,Total 0.3 mg/dL (0.2-1.3); Blood Urea Nitrogen 16 mg/dL (7-17); Calcium 9.4 mg/dL (8.4-10.2); Carbon Dioxide 24 mmol/L (22-30); Chloride 104 mmol/L (98-107); Estimated CRCL calculation 109 ml/min; Estimated Glomerular Filt Rate > 60; Glucose 116 mg/dL (65-110); INR 1.0; Magnesium 2.0 mg/dL (1.6-2.3); Potassium 3.8 mmol/L (3.4-5.0); Prothrombin Time 13.1 Seconds (11.1-14.7); Sodium 138 mmol/L (137-145); Total Protein 8.0 g/dL (6.3-8.2)
[2025-01-14 16:17] LABS: Partial Thromboplastin Time 27.3 Seconds (22.3-36.8)
[2025-01-14 16:31] LABS: Cannabinoid Screen Urine Negative (Negative); Troponin I < 0.012 ng/mL (0.000-0.034)
[2025-01-14 16:54] LABS: NT Pro B Type Natriuretic Pept 25 pg/mL (19.9-100)
== END 2025-01-14 17:14 | disposition home or self-care (01) ==
LOC: ANHED 16:40
PROVIDERS: Registered Nurse; Emergency Provider Emergency Medicine
DX: J40 Bronchitis, not specified as acute or chronic (principal)
CPT/HCPCS: 36415; 71046; 80053; 80307; 81001; 83605; 83735; 83880; 84484; 85025; 85380; 85610; 85730; 93005; 99284